=== PATIENT | female | born 1960 | race Caucasian/White ===

== ENCOUNTER 2020-11-06 12:42 | Outpatient (CLI) | payer OTHER, SELFPAY ==
--- NOTE | ~2020-11-06 | US_ITS ---
EXAMINATION: US venous doppler LE EXAM DATE: 11/06/2020 13:46 INDICATION: R60.9 - Edema, unspecified EDEMA. TECHNIQUE: Multiple grayscale, color flow and Doppler images of the lower extremity deep venous syste ms bilaterally were obtained and reviewed. There is no prior study for comparison. FINDINGS: RIGHT SIDE Common femoral: -------- Normal. Profunda femoral: ------- Normal. Femoral: Normal. Popliteal: Normal. Posterior tibial: --------- Normal. Peroneal: Normal. Gastrocnemius: Thrombosed. Soleus: Not visualized. Greater saphenous: ----- Normal. Lesser saphenous: ------ Not visualized. LEFT SIDE Common femoral: -------- Normal. Profunda femoral: ------- Normal. Femoral: Normal. Popliteal: Normal. Posterior tibial: --------- Normal. Peroneal: Normal. Gastrocnemius: Not visualized. Soleus: Not visualized. Greater saphenous: ----- Normal. Lesser saphenous: ------ Not visualized. IMPRESSION: 1. Positive for right calf DVT. 2. No left DVT. STAT hold and call. I confirmed with Norah that patient is in waiting room. She is notifying [facility] doctor of results and patient will be given instructions at that time. Reviewed, dictated and finalized at location B. IMPRESSION: 1. Positive for right calf DVT. 2. No left DVT. STAT hold and call. I confirmed with Norah that patient is in waiting room. S he is notifying ordering doctor of results and patient will be given instructio ns at that time.
[2020-11-06 13:09] LABS: Immature Platelet Fraction Pct 6.3 % (0.9-11.2); Mean Corpuscular HGB Conc 24.8 g/dl (32-36); Mean Corpuscular Hemoglobin 15.4 pg (26-34); Mean Corpuscular Volume 62.2 fl (80-100); Mean Platelet Volume 10.8 fl (7.4-10.4); Platelet Count Result 400 k/mm3 (150-375); Red Blood Count 3.31 M/mm3 (4.2-5.4); White Blood Count 8.5 K/mm3 (4.5-10.0)
[2020-11-06 13:16] LABS: Hematocrit 20.6 % (37.0-47.0)
[2020-11-06 13:18] LABS: Alanine Aminotransferase 11 U/L (4-35); Albumin Level 3.8 g/dL (3.5-5.1); Alkaline Phosphatase 55 U/L (38-126); Anion Gap 9 mmol/L (8-16); Aspartate Amino Transferase 31 U/L (14-36); Bilirubin,Total 1.2 mg/dL (0.2-1.3); Blood Urea Nitrogen 15 mg/dL (7-17); Calcium 8.8 mg/dL (8.4-10.2); Carbon Dioxide 26 mmol/L (22-30); Chloride 103 mmol/L (98-107); Cholesterol 120 mg/dL (0-200); Estimated Glomerular Filt Rate > 60; Glucose 119 mg/dL (65-105); HDL Direct 33 mg/dL; Potassium 3.8 mmol/L (3.4-5.0); Sodium 138 mmol/L (137-145); Triglycerides 93 mg/dL (<150)
[2020-11-06 13:25] LABS: Hemoglobin 5.1 g/dL (12.0-15.0)
[2020-11-06 13:36] LABS: LDL Cholesterol Direct 59 mg/dL
[2020-11-06 14:00] LABS: Iron 17 ug/dL (37-170)
[2020-11-06 14:09] LABS: Percent Iron Saturation 4 % (20-50)
[2020-11-06 14:18] LABS: Free T4 Free Thyroxine 1.04 ng/mL (0.78-2.19)
== END 2020-11-06 12:43 | disposition home or self-care (01) ==
PROVIDERS: PCP Family Medicine; Visit Provider Physician Assistant
DX: D64.9 Anemia, unspecified (principal); R53.83 Other fatigue; E78.5 Hyperlipidemia, unspecified; M79.662 Pain in left lower leg; R60.9 Edema, unspecified; I82.4Z1 Acute embolism and thrombosis of unspecified deep veins of right distal lower extremity
CPT/HCPCS: 36415; 80053; 80061; 83540; 83550; 84439; 84443; 85027; 85055; 93970

== ENCOUNTER 2020-11-06 14:17 | Inpatient (IN) | payer OTHER, SELFPAY ==
[2020-11-06] VITALS (33 sets, daily range): BP systolic 109–137; BP diastolic 51–95; PULSE 75–98; RESP 14–24; TEMP 36.4–37.4; O2SAT 94–100; BMI 30.4
--- NOTE | 2020-11-06 14:49 | ECG_ITS ---
Measurements Intervals [place] Rate: 81 P: 30 MO: 143 QRS: 0 QRSD: 86 T: -3 QT: 362 QTc: 422 Interpretive Statements SINUS RHYTHM DELAYED PRECORDIAL R/S TRANSITION LOW QRS VOLTAGE IN PRECORDIAL LEADS BORDERLINE T WAVE ABNORMALITY- INFERIOR LEADS BORDERLINE ECG Electronically Signed On 11-06-2020 17:16:53 CDT by Sandeep Méndez D.O.
[2020-11-06 14:55] LABS: Basophils Percent Auto 0.3 % (0.2-1.2); Eosinophils Absolute Auto 0.3 K/mm3 (0-0.3); Eosinophils Percent Auto 3.4 % (0-4.4); Immature Granulocyte Absolute 0.04 K/mm3 (0.00-0.031); Immature Granulocyte Percent A 0.5 % (0-0.5); Lymphocytes Percent Auto 27.7 % (18.3-44.2); Mean Corpuscular HGB Conc 25.3 g/dl (32-36); Mean Corpuscular Hemoglobin 15.6 pg (26-34); Mean Corpuscular Volume 61.9 fl (80-100); Monocytes Absolute Auto 0.5 K/mm3 (0.1-0.6); Monocytes Percent Auto 6.7 % (2.6-8.5); Neutrophils Absolute Auto 4.9 K/mm3 (1.3-6.7); Neutrophils Percent Auto 61.4 % (45.5-73.1); Nucleated Red Blood Cells Absolute Auto 0.1 K/mm3 (0.0-0.012); Platelet Count Result 368 k/mm3 (150-375); Red Cell Distribution Width 20.9 % (11.5-14.5); White Blood Count 7.9 K/mm3 (4.5-10.0)
[2020-11-06 15:03] LABS: Prothrombin Time 13.3 Seconds (11.1-14.7)
[2020-11-06 15:04] LABS: Partial Thromboplastin Time 22.3 SECONDS (22.3-36.8)
[2020-11-06 15:07] LABS: Alanine Aminotransferase 10 U/L (4-35); Albumin Level 3.8 g/dL (3.5-5.1); Alkaline Phosphatase 54 U/L (38-126); Anion Gap 8 mmol/L (8-16); Aspartate Amino Transferase 27 U/L (14-36); Bilirubin,Total 1.3 mg/dL (0.2-1.3); Blood Urea Nitrogen 14 mg/dL (7-17); Calcium 8.8 mg/dL (8.4-10.2); Carbon Dioxide 27 mmol/L (22-30); Chloride 102 mmol/L (98-107); Estimated Glomerular Filt Rate > 60; Glucose 94 mg/dL (65-105); Potassium 3.9 mmol/L (3.4-5.0); Sodium 137 mmol/L (137-145)
[2020-11-06 15:20] LABS: Hematocrit 19.8 % (37.0-47.0)
[2020-11-06 15:22] LABS: Hypochromasia 2+ (NORMAL); Platelet Estimate Adequate (Adequate)
[2020-11-06 15:23] LABS: Anisocytosis 3+ (NORMAL)
--- NOTE | 2020-11-06 15:38 | ED.GENADULT ---
HPI - General Adult General Chief complaint: Extremity Problem,Nontraumatic Stated complaint: + Dvt R leg-sent from radiology Time Seen by Provider: 11/06/20 15:20 Source: patient History of Present Illness HPI narrative: Patient is a 60 y/o male complaining of severe weakness and SOB for last 2 months. There is no known alleviating or exacerbating factor. She had one episode of blood in stool 1 week ago and she attributed this to hemorrhoid. She had outpatient lab done today and her Hemoglobin was 5.1. She was thus directed to ED. She also has been having bilateral leg pain for 2 weeks. Outpatient US showed right leg DVT. Related Data Home Medications Medication Instructions Recorded Confirmed No Home Medications 11/06/20 11/06/20 Allergies Allergy/AdvReac Type Severity Reaction Status Date / Time No Known Allergies Allergy Unknown Verified 11/06/20 15:23 Review of Systems Review of Systems: All systems reviewed & are unremarkable except as noted in HPI and below Constitutional: Constitutional: Denies chills, Denies fever(s), Denies headache(s) and Denies weakness Eyes: Eyes: Denies blurry vision ENT: Denies headache(s) and Denies neck pain Cardiovascular: Cardiovascular: Denies chest pain and Denies dyspnea Respiratory: Respiratory: Denies cough and Denies dyspnea Gastrointestinal: Gastrointestinal: Denies abdominal pain, Denies diarrhea, Denies nausea and Denies vomiting Genitourinary: Genitourinary: Denies hematuria and Denies dysuria Musculoskeletal: Musculoskeletal: Denies back pain and Denies neck pain Neurologic: Denies headache(s) and Denies weakness [facility] Past Medical History Medical History Abnormal colonoscopy 2019- Polyp f/u 3-5 years Anemia Gastric ulcer, acute with hemorrhage Vitamin B12 deficiency Surgical History Surgical History H/O total hysterectomy History of 3 sections History of esophagogastroduodenoscopy (EGD) 2019-esophagitis Family History Family History (Updated 11/06/20 @ 12:12 by Chasity Escobar CMA) Father Family history of glaucoma, Onset Age: 0 Gout Mother Family history of cardiovascular disease Gout Social History Social History Smoking status: Never smoker Second hand tobacco smoke exposure: No Alcohol intake: never Course Consultations Consultation #1: Discussed with SERGEI Bal, who agrees to admit. Date: 11/06/20 Time: 15:45 Consultation #2: Discussed with Dr. Luke, who agrees to admit. Date: 11/06/20 Time: 16:06 Consultation #3: Discussed with Dr. Castillo, who agrees to consult. Date: 11/06/20 Time: 16:22 Vital Signs Vital signs: Vital Signs Temperature 36.7 C 11/06/20 14:39 Pulse Rate 83 11/06/20 14:39 Respiratory Rate 18 11/06/20 14:39 Blood Pressure 134/75 11/06/20 14:39 Pulse Oximetry 100 11/06/20 14:39 Temperature 37.1 C 11/06/20 18:22 Pulse Rate 81 11/06/20 18:22 Respiratory Rate 18 11/06/20 18:22 Blood Pressure 137/81 11/06/20 18:22 Pulse Oximetry 99 11/06/20 18:22 Medical Decision Making Vital Signs Vital Signs: Vital Signs Temperature 36.7 C 11/06/20 14:39 Pulse Rate 83 11/06/20 14:39 Respiratory Rate 18 11/06/20 14:39 Blood Pressure 134/75 11/06/20 14:39 Pulse Oximetry 100 11/06/20 14:39 Temperature 37.1 C 11/06/20 18:22 Pulse Rate 81 11/06/20 18:22 Respiratory Rate 18 11/06/20 18:22 Blood Pressure 137/81 11/06/20 18:22 Pulse Oximetry 99 11/06/20 18:22 Lab Data Result diagrams: 11/06/20 14:48 11/06/20 14:48 Labs: Lab Results 11/06/20 11/06/20 11/06/20 Range/Units 14:48 14:48 14:48 WBC 7.9 (4.5-10.0) K/mm3 RBC 3.20 L (4.2-5.4) M/mm3 Hgb 5.0 L* (12.0-15.0) g/dL Hct 19.8 L* (37.0-47.0) %
[2020-11-06] MEDS: TUBING, BLOOD PLUM PUMP TUBING 1 EACH XX (16:21)
[2020-11-06] MEDS: SODIUM CHLORIDE 0.9% IV 250 ML 30 ML IV CONT (16:21)
--- NOTE | 2020-11-06 19:00 | ADMGEN ---
This patient, Jazmín Osorio, was admitted to Medical Room 341-01. Patient/family oriented to hospital policies and general routines including ID bracelet, bed and alarms, visiting hours, pain management, procedures, bathroom and other care routines, personal items, smoking policy, room service/diet, and visiting hours. Information on how to activate the Rapid Response Team has been discussed. Patient/Family are encouraged to report perceived risks to care and to ask questions if they do not understand what they are told or what they should do.
[2020-11-06] MEDS: SODIUM CHLORIDE 0.9% IV 250 ML 30 ML (19:49)
--- NOTE | 2020-11-06 23:51 | PM.IMHP ---
H&P: HPI History of Present Illness Date/Time: 11/06/20 23:51 This is a 60-year-old female patient who has been complaining of some generalized weakness and shortness of breath for 2 months. She has been seeing her primary care doctor Dr. peacock. Dr. peacock sent the patient over to have some blood work and have a venous Doppler. The patient has been complaining of having some pain to her right lower extremity. The patient stated that she had blood in her stool approximately 1 week ago. However the patient thought that maybe which has from her small hemorrhoid. The patient stated that she has had anemia all her life and that in 2019 she had received a blood transfusion at that time and she saw Dr. Woodall. She had an EGD were they found a peptic ulcer and she is also found to have some colon polyps as per the patient statementin 2019 The patient had an outpatient ultrasound of the right leg and was found to be positive for a DVT to the right leg. Hemoglobin was noted to be 5.1. And 2 units packed red blood cells was ordered for the patient. Dr. irving had been consulted for possible IVC filter placement since the patient is anemic and requiring a blood transfusion. the patient is not pale she has a normal color. The patient does not feel any dizziness or lightheadedness. The patient states that she does take an iron tablet as well as a multivitamin every day. She stated 2019 she had anemia workup at that time and was prescribed B12 and iron at that time. Her H&H was noted to be 5.0 And19.8 today. the patient is being admitted to observation status on the date of service of 11/06/2020. Chief Complaint: Anemia Review of Systems Review of Systems: All systems reviewed & are unremarkable except as noted in HPI and below Constitutional: Constitutional: Reports as per HPI and Reports no additional constitutional complaints Eyes: Eyes: Reports as per HPI and Reports no additional eye complaints ENT: Reports system reviewed and no additional complaints, except as documented and Reports Normal hearing present Cardiovascular: Cardiovascular: Reports no additional cardiovascular complaints Respiratory: Respiratory: Reports no additional respiratory complaints and Reports no additional respiratory complaints Gastrointestinal: Gastrointestinal: Reports as per HPI and Reports no additional gastrointestinal complaints Musculoskeletal: Musculoskeletal: Reports no additional musculoskeletal complaints Integumentary/Breasts: Skin/Breast: Reports system reviewed and no additional complaints, except as docu and Reports as per HPI Neurologic: Reports system reviewed and no additional complaints, except as documented, Reports as per HPI and Reports Normal hearing present Psychiatric: Psychiatric: Reports no additional psychiatric complaints and Reports as per HPI Endocrine: Endocrine: Reports no additional endocrine complaints Hematologic/Lymphatic: Hematologic/Lymphatic: Reports no additional hematologic/lymphatic complaints Allergic/Immunologic: Allergic/Immunologic: Reports no additional allergic/immunologic complaints PMFSH Past Medical History Medical History Abnormal colonoscopy 2019- Polyp f/u 3-5 years Anemia Gastric ulcer, acute with hemorrhage Vitamin B12 deficiency Surgical History Surgical History H/O total hysterectomy History of 3 sections History of esophagogastroduodenoscopy (EGD) 2019-esophagitis Family History Family History Father Family history of glaucoma, Onset Age: 0 Gout Mother Family history of cardiovascular disease Gout Social History Social History (Updated 11/06/20 @ 23:57 by Mally Quesada NP) Social History: The patient is lives with her . 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 She desires to
[2020-11-07] VITALS (11 sets, daily range): BP systolic 114–148; BP diastolic 55–76; PULSE 69–80; RESP 16–18; TEMP 36.1–36.4; O2SAT 95–100
[2020-11-07 01:12] LABS: Hematocrit 24.8 % (37.0-47.0)
[2020-11-07 01:22] LABS: Hemoglobin 6.8 g/dL (12.0-15.0)
[2020-11-07] MEDS: SODIUM CHLORIDE 0.9% IV 250 ML 30 ML IV CONT (02:15)
[2020-11-07 06:22] LABS: Basophils Percent Auto 0.4 % (0.2-1.2); Eosinophils Absolute Auto 0.3 K/mm3 (0-0.3); Eosinophils Percent Auto 4.6 % (0-4.4); Hematocrit 26.8 % (37.0-47.0); Hemoglobin 7.7 g/dL (12.0-15.0); Immature Granulocyte Absolute 0.04 K/mm3 (0.00-0.031); Immature Granulocyte Percent A 0.6 % (0-0.5); Immature Platelet Fraction Pct 5.5 % (0.9-11.2); Lymphocytes Absolute Auto 2.15 K/mm3 (0.9-3.2); Lymphocytes Percent Auto 31.6 % (18.3-44.2); Mean Corpuscular HGB Conc 28.7 g/dl (32-36); Mean Corpuscular Hemoglobin 20.2 pg (26-34); Mean Corpuscular Volume 70.3 fl (80-100); Mean Platelet Volume 10.9 fl (7.4-10.4); Monocytes Absolute Auto 0.5 K/mm3 (0.1-0.6); Monocytes Percent Auto 6.8 % (2.6-8.5); Neutrophils Absolute Auto 3.8 K/mm3 (1.3-6.7); Nucleated Red Blood Cells Absolute Auto 0.1 K/mm3 (0.0-0.012); Nucleated Red Blood Cells Perc 1.3 % (0.0-0.2); Platelet Count Result 293 k/mm3 (150-375); Red Blood Count 3.81 M/mm3 (4.2-5.4); Red Cell Distribution Width 26.9 % (11.5-14.5); White Blood Count 6.8 K/mm3 (4.5-10.0)
[2020-11-07 06:59] LABS: Anisocytosis 1+ (NORMAL); Hypochromasia 2+ (NORMAL); Platelet Estimate Adequate (Adequate); Polychromasia 1+ (NORMAL)
--- NOTE | 2020-11-07 07:20 | WPDGICN ---
Assessment and Plan Assessment and plan (1) Acute blood loss anemia: Code(s): D62 - Acute posthemorrhagic anemia Status: Acute Assessment and Plan: I am concerned that she may have a persistent a recurrence of gastric ulcer. He the microcytic indices also him towards the possibility of slow blood loss such as with gastrointestinal neoplasm, but she had a colonoscopy 2 years ago that was normal except for 1 polyp. I will prep her for EGD and colonoscopy to be done tomorrow morning. She recalls being unable to drink the prep and believes that it was instilled through an NG to last time. (2) Acute deep vein thrombosis (DVT) of right lower extremity: Qualifiers: Affected thrombotic vein of extremity: calf muscle vein Qualified Code(s): I82.461 - Acute embolism and thrombosis of right calf muscular vein Code(s): I82.401 - Acute embolism and thrombosis of unspecified deep veins of right lower extremity Status: Acute Assessment and Plan: Once endoscopy is done she can be anticoagulated, unless alternatively IVC filter is placed GI Consult Note Consult date/time: 11/07/20 07:20 HPI: Jazmín Osorio is a 60 year old female who was sent to the lab for blood work yesterday and found to have a hemoglobin of 5.1. She therefore was sent to the emergency room and subsequently admitted. The patient denies having black tarry stools lately she has had no change in bowel habits but she did see some red blood after bowel movement a week ago. She had a history of a gastric ulcer in proximal stomach 2 years ago at that time. She apparently also was positive for H pylori at that time and it was treated. A colonoscopy At that timerevealed 1 large polyp that was removed. she denies heartburn dysphagia anorexia nausea vomiting or weight loss. She denies any significant abdominal pain. He is on no medications at home Review of Systems Review of Systems: All systems reviewed & are unremarkable except as noted in HPI and below PMFSH Past Medical History Medical History Abnormal colonoscopy 2019- Polyp f/u 3-5 years Anemia Gastric ulcer, acute with hemorrhage Vitamin B12 deficiency Surgical History Surgical History H/O total hysterectomy History of 3 sections History of esophagogastroduodenoscopy (EGD) 2019-esophagitis Family History Family History Father Family history of glaucoma, Onset Age: 0 Gout Mother Family history of cardiovascular disease Gout Social History Social History Social History: The patient is lives with her . 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 She desires to be a full code. She is a lifelong nonsmoker. She does not use any alcohol marijuana or illicit drugs. Smoking status: Never smoker Second hand tobacco smoke exposure: No Alcohol intake: never Substance use: never Spiritual care concerns: No Meds Home Medications and Allergies Home Medications Medication Instructions Recorded Confirmed Type No Home Medications 11/06/20 11/06/20 History Allergies Allergy/AdvReac Type Severity Reaction Status Date / Time No Known Allergies Allergy Unknown Verified 11/06/20 19:37 Vital Signs Vital Signs - 24 hr 11/06/20 14:39 11/06/20 15:30 11/06/20 15:45 Temperature 36.7 C Pulse Rate 83 78 80 Respiratory Rate 18 20 14 Blood Pressure 134/75 122/88 Pulse Oximetry 100 97 94 11/06/20 15:46 11/06/20 16:09 11/06/20 16:15 Temperature 36.9 C Pulse Rate 78 86 90 Respiratory Rate 16 19 18 Blood Pressure 121/76 Pulse Oximetry 98 98 99 11/06/20 16:28 11/06/20 16:30 11/06/20 16:31 Temperat
--- NOTE | 2020-11-07 08:59 | PM.CNGS ---
Assessment and Plan Assessment and plan (1) Acute deep vein thrombosis (DVT) of right lower extremity: Qualifiers: Affected thrombotic vein of extremity: calf muscle vein Qualified Code(s): I82.461 - Acute embolism and thrombosis of right calf muscular vein Code(s): I82.401 - Acute embolism and thrombosis of unspecified deep veins of right lower extremity Status: Acute Assessment and Plan: We have been asked to see the patient in regards to placing an IVC filter. She was found to have an acute DVT in the right gastrocnemius vein in the setting of profound anemia with suspected GI bleed. GI suggests that she could be anticoagulated following her EGD/colonoscopy tomorrow, unless an IVC filter is placed. With this being a distal DVT, this could be treated with anticoagulation or the option of close monitoring and follow-up. I discussed treatment options with the patient regarding anticoagulating her after her endoscopies versus proceeding with an IVC filter or monitoring knowing the risks of propagation. She would like to hold off on the IVC filter for now. We will await findings from the EGD/Colonoscopy and recommendations on treatment. With her profound anemia, she may be a high risk for anticoagulation depending on what is found by GI tomorrow. We will follow along and can discuss her options again following the EGD/Colonoscopy. (2) Acute blood loss anemia: Code(s): D62 - Acute posthemorrhagic anemia Status: Acute Additional Plan I have discussed the patient's case and plan of care with Dr. Reaves. I have also called and discussed the case with the Hospitalist. They feel that she will likely need to be treated with anticoagulation, but feel that monitoring is an option if she will be compliant with follow-up. Thank you for allowing us to see the patient in consultation. History of Present Illness Consult details Consult date: 11/07/20 Reason for consult: other (IVC filter placement) Requesting physician: Myriam Greenfield MD Narrative: This is a 60-year-old female with a history of profound anemia with previous gastric ulcer and H pylori infection in February of 2019. She presented to her PCP yesterday with complaints of her right lower leg pain and swelling for 1 week, along with progressively worsening fatigue over the last month. She was sent for a bilateral lower extremity venous Doppler, which showed a DVT in the right gastrocnemius vein. Her lab work also showed profound anemia with a hemoglobin of 5.1. She was directed to the ED for evaluation. She has been admitted to the hospitalist service and has received 3 units of packed red blood cell transfusions. Her hemoglobin is up to 7.7 today. GI has been consulted and is planning to proceed with an EGD and colonoscopy tomorrow. She is currently on clear liquids today. Our service has been consulted to evaluate the patient for placement of an IVC filter. The patient is now seen on the medical floor. Review of Systems Review of Systems: All systems reviewed & are unremarkable except as noted in HPI and below Constitutional: Constitutional: Reports as per HPI, Reports fatigue, Denies fever(s) and Denies weakness Cardiovascular: Cardiovascular: Reports no additional cardiovascular complaints and Denies chest pain Respiratory: Respiratory: Reports no additional respiratory complaints, Denies dyspnea and Denies dyspnea on exertion Gastrointestinal: Gastrointestinal: Denies abdominal pain, Denies melena, Reports hematochezia (once about one week ago), Denies change in bowel habits, Denies diarrhea and Denies vomiting PMFSH Past Medical History Medical History Anemia Gastric ulcer, acute with hemorrhage 2019 with positive Nasrin-test for H.pylori Vitamin B12 deficiency Surgical History Surgical History H/O total hysterectomy Histo
[2020-11-07] MEDS: PANTOPRAZOLE SODIUM IV 40 MG VIAL IV PUSH ×2 (09:31→20:01)
[2020-11-07 12:00] LABS: Hematocrit 29.3 % (37.0-47.0); Hemoglobin 8.3 g/dL (12.0-15.0)
[2020-11-07 13:17] LABS: Folic Acid 12.7 ng/mL (2.76->20)
[2020-11-07] MEDS: BISACODYL 5 MG TABLET EC 10 MG PO (13:42)
[2020-11-07 14:12] LABS: Ferritin 5.25 ng/mL (11.1-264)
--- NOTE | 2020-11-07 14:16 | PM.IMPN ---
Progress Note: A&P Assessment and Plan (1) Acute blood loss anemia: Code(s): D62 - Acute posthemorrhagic anemia Status: Acute Assessment and Plan: Pt hgb was 5.1 on admission and is now up to 8.3 -She has received 3u of PRBC -Plan for EGD/colonoscopy tomorrow AM to assess for etiology -Pt has had this in the past with negative work up at the time. Dr. Shannon consulted -Anemia labs not drawn before the blood. B12 mildly low, will replace. Ferritin also low which points to iron deficiency anemia. Will give a dose of venofer tomorrow (she had blood yesterday and today) -No signs of hemolytic anemia -Monitor H&H (2) GI (gastrointestinal hemorrhage): Qualifiers: GI bleed type/associated pathology: unspecified gastrointestinal hemorrhage type Qualified Code(s): K92.2 - Gastrointestinal hemorrhage, unspecified Code(s): K92.2 - Gastrointestinal hemorrhage, unspecified Status: Acute Assessment and Plan: Patient stated that she noticed bright red bleeding about 1 week ago -Plan for colonoscopy and EGD tomorrow. Consider capsule study if this does not find an etiology -She did see Dr. Woodall in 2019 and received an EGD as well as colonoscopy. She stated that she had some polyps removed at that time and was found have peptic ulcer disease. -Continue protonix (3) Acute deep vein thrombosis (DVT) of right lower extremity: Qualifiers: Affected thrombotic vein of extremity: calf muscle vein Qualified Code(s): I82.461 - Acute embolism and thrombosis of right calf muscular vein Code(s): I82.401 - Acute embolism and thrombosis of unspecified deep veins of right lower extremity Status: Acute Assessment and Plan: DVT in the gastrocnemius vein - hemoglobin has been low, it is risky to start anticoagulation at this time. Await for EGD in colonoscopy results tomorrow - surgery was consulted for an IVC filter but patient has declined - may consider serial ultrasounds if absolutely necessary (below the knee DVT) - she has no family history of clotting disease. she has recently retired and is not as active - no PE suspected at this time as her shortness of breath has resolved with her blood transfusions Time Spent With Patient Time with patient: 25 - 35 minutes Subjective Date/time seen: 11/07/20 14:16 Interval history: Pt is a 60 y/o female here for anemia as well as DVT. Patient was seen today and is doing okay. She said her right leg is much less swollen than it has been in the past. She has no pain currently. She said her shortness of breath has completely resolved since receiving the blood transfusion. Pt denies nausea, vomiting, fevers, chills, constipation, diarrhea, chest pain, sob, or abdominal pain. Review of Systems Review of Systems: All systems reviewed & are unremarkable except as noted in HPI and below Exam Narrative: Exam Narrative: General: Well developed well nourished patient in NAD HEENT: normocephalic Neck: supple Neuro: Alert and oriented x4 CV:RRR Resp:CTA Abd: Soft, non distended. No pain to palpation. Positive bowel sounds Extremities: Right ankle appears chronically more swollen than the left (previous break) but no erythema or pain. Left leg without swelling or pain Objective Data Vital Signs Vital Signs: Vital Signs - 24 hr 11/06/20 14:39 11/06/20 15:30 11/06/20 15:45 Temperature 98.1 F Pulse Rate 83 78 80 Respiratory Rate 18 20 14 Blood Pressure 134/75 122/88 Pulse Oximetry 100 97 94 11/06/20 15:46 11/06/20 16:09 11/06/20 16:15 Temperature 98.4 F Pulse Rate 78 86 90 Respiratory Rate 16 19 18 Blood Pressure 121/76 Pulse Oximetry 98 98 99 11/06/20 16:28 11/06/20 16:30 11/06/20 16:31 Temperature Pulse Rate 92 87 87 Respiratory Rate 17 17 14 Blood Pressure 125/64 Pulse Oximetry 99 97 11/06/20 16:33 11/06/20 16:35 11/06/20 16:45 Temperature 98.4 F Pulse Rate 88
[2020-11-07] MEDS: CYANOCOBALAMIN INJ 1,000 MCG/ML VIAL 1000 MCG IM (15:53)
[2020-11-07] MEDS: PEG (High)/E-LYTE SOLN 4,000 ML BTL 4000 ML PO (15:56)
--- NOTE | 2020-11-07 18:42 | PDONCCN ---
HPI - Date of Consult Date/Time: 11/07/20 18:42 Requesting Physician: Jessica Wise PA-C Primary Care Provider: Lashonda Austin MD - Consult Narrative Reason for consult: Microcytic anemia Narrative: Jazmín Osorio is a 60 year old female This is a pleasant 60-year-old female with history of anemia for most of her adult life. She was admitted to the hospital in February 2019 for significant anemia and had colonoscopy done that showed internal hemorrhoids and polyps. EGD showed peptic ulcer disease. She now came into the hospital with generalized weakness along with some shortness of breath and dyspnea on exertion. She was complaining of lower abdominal pain and the right lower extremity swelling at the ankle site for last 3 days duration. She denies any injury and trauma to the right leg. She has been reasonably active at home. She denies any melena hematochezia. She denies being a vegetarian. She denies any previous history of his gastric surgery. Patient had Doppler study done that showed DVT involving the right leg. Labs showed hemoglobin of 5.1. She received 3 units of packed red blood cell. She is feeling better after the blood transfusion. She is planning to have EGD and colonoscopy in the morning. She denies any history of malignancy in the past. She had last mammogram 4 years ago. Review of Systems - Review of Systems All systems reviewed & are unremarkable except as noted in HPI and bel - Neurologic Reports system reviewed and no additional complaints, except as documented, Reports hearing normal, Denies headache(s), Denies weakness [facility] Medical History: Medical History (Last Reviewed 11/07/20 @ 09:31 by JULIO CESAR Cárdenas) Anemia Gastric ulcer, acute with hemorrhage 2019 with positive Nasrin-test for H.pylori Vitamin B12 deficiency Surgical History: Surgical History (Last Reviewed 11/07/20 @ 09:31 by JULIO CESAR Cárdenas) H/O total hysterectomy History of 3 sections History of colonoscopy with polypectomy 2019 History of esophagogastroduodenoscopy (EGD) 2019-esophagitis, gastric ulcer, positive Nasrin-test for H.pylori Family History: Family History (Last Reviewed 11/07/20 @ 09:31 by JULIO CESAR Cárdenas) Father Family history of glaucoma, Onset Age: 0 Gout Mother Family history of cardiovascular disease Gout - Social History Social History: Social History (Last Reviewed 11/07/20 @ 09:06 by JULIO CESAR Cárdenas) Alcohol Use: Alcohol intake: never Substance Use: Substance use: never Others: Spiritual care concerns: No Smoking Status: Smoking status: Never smoker Second hand tobacco smoke exposure: No Meds Home Medications Medication Instructions Recorded Confirmed Type No Home Medications 11/06/20 11/06/20 History Allergies Allergy/AdvReac Type Severity Reaction Status Date / Time No Known Allergies Allergy Unknown Verified 11/06/20 19:37 Results - Labs CBC & Chem 7: 11/07/20 11:43 11/06/20 14:48 Labs: Short CBC 11/07/20 11/07/20 11/07/20 Range/Units 00:16 06:01 11:43 WBC 6.8 (4.5-10.0) K/mm3 Hgb 6.8 L* 7.7 L 8.3 L (12.0-15.0) g/dL Hct 24.8 L 26.8 L 29.3 L (37.0-47.0) % Plt Count 293 (150-375) k/mm3 Assessment and Plan - Additional Plan Microcytic anemia. Patient is a pleasant 70-year-old female who has anemia for all of her life. She was admitted to hospital in February 2019 with similar presentation when she was quite tired and fatigue and blood workup at that time showed significant anemia. Patient had EGD and colonoscopy done previously. Now she came back to the hospital with increasing tiredness and fatigue. She denies any melena hematochezia. She had 1 episode of hemorrhoidal bleeding that now resolved. She denies being a vegetarian. She denies any previous history of stomach surgery. Labs showed significant iron deficien
[2020-11-08] VITALS (7 sets, daily range): BP systolic 98–135; BP diastolic 55–88; PULSE 65–84; RESP 16–23; TEMP 35.9–37.3; O2SAT 95–100
[2020-11-08 06:37] LABS: Hematocrit 29.4 % (37.0-47.0); Hemoglobin 8.3 g/dL (12.0-15.0)
[2020-11-08 06:51] LABS: Anion Gap 7 mmol/L (8-16); Blood Urea Nitrogen 9 mg/dL (7-17); Calcium 8.4 mg/dL (8.4-10.2); Carbon Dioxide 27 mmol/L (22-30); Chloride 105 mmol/L (98-107); Estimated CRCL calculation 86 ml/min; Estimated Glomerular Filt Rate > 60; Glucose 96 mg/dL (65-105); Potassium 3.9 mmol/L (3.4-5.0); Sodium 139 mmol/L (137-145)
[2020-11-08] MEDS: PANTOPRAZOLE SODIUM IV 40 MG VIAL IV PUSH ×2 (08:33→20:03)
[2020-11-08] MEDS: LACTATED RINGERS 1,000 ML 150 ML IV CONT (10:54)
--- NOTE | 2020-11-08 11:31 | WPDANESEPPF ---
Anes - Initial Pre Proc Eval Procedure: Operation Date: 11/08/20 12:00 Proposed Procedures p Esophagogastroduodenoscopy & Colonoscopy - Alex Castillo MD Date/Time: 11/08/20 11:31 Surgeon: Jessica Wise PA-C Pre Op Diagnosis: gi bleed/anemia/dvt Patient Data Age: 60 Gender: F Height: 1.7 m Weight: 88 kg Last Vital Signs Temp 36.9 C 11/08/20 11:00 Pulse 72 11/08/20 11:00 Resp 18 11/08/20 11:00 BP 125/68 11/08/20 11:00 Pulse Ox 96 11/08/20 11:00 Allergies Allergy/AdvReac Type Severity Reaction Status Date / Time No Known Allergies Allergy Unknown Verified 11/08/20 10:59 Home Medications Medication Instructions Recorded Confirmed Type No Home Medications 11/06/20 11/06/20 History Laboratory Tests 11/07/20 11/07/20 11/07/20 11:43 11:43 11:43 Hgb 8.3 g/dL L g/dL (12.0-15.0) Hct 29.3 % L % (37.0-47.0) Sodium Potassium Chloride Carbon Dioxide Anion Gap BUN Creatinine Estim Creat Clear Calc Estimated GFR Glucose Calcium Ferritin 5.25 ng/mL L ng/mL (11.1-264) Vitamin B12 315.0 pg/mL pg/mL (239-931) Folate 12.7 ng/mL ng/mL (2.76->20) 11/08/20 11/08/20 06:20 06:20 Hgb 8.3 g/dL L g/dL (12.0-15.0) Hct 29.4 % L % (37.0-47.0) Sodium 139 mmol/L mmol/L (137-145) Potassium 3.9 mmol/L mmol/L (3.4-5.0) Chloride 105 mmol/L mmol/L (98-107) Carbon Dioxide 27 mmol/L mmol/L (22-30) Anion Gap 7 mmol/L L mmol/L (8-16) BUN 9 mg/dL D mg/dL (7-17) Creatinine 0.70 mg/dL mg/dL (0.7-1.0) Estim Creat Clear Calc 86 ml/min ml/min Estimated GFR > 60 (59 - ) Glucose 96 mg/dL mg/dL (65-105) Calcium 8.4 mg/dL mg/dL (8.4-10.2) Ferritin Vitamin B12 Folate Patient hx anesthesia problems: none Family hx anesthesia problems: none PMFSH Past Medical History Medical History Anemia Gastric ulcer, acute with hemorrhage 2019 with positive Nasrin-test for H.pylori Vitamin B12 deficiency Surgical History Surgical History H/O total hysterectomy History of 3 sections History of colonoscopy with polypectomy 2019 History of esophagogastroduodenoscopy (EGD) 2019-esophagitis, gastric ulcer, positive Nasrin-test for H.pylori Family History Family History Father Family history of glaucoma, Onset Age: 0 Gout Mother Family history of cardiovascular disease Gout Social History Social History Social History: The patient is lives with her . 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 She desires to have her as a durable power state attorney for healthcare. She desires to be a full code. She is a lifelong nonsmoker. She does not use any alcohol marijuana or illicit drugs. Smoking status: Never smoker Second hand tobacco smoke exposure: No Alcohol intake: never Substance use: never Spiritual care concerns: No Anes - Eval Final PreProcedure Day of Procedure 11/08/20 11:31 Patient weight: obese Heart: regular rate and rhythm Lungs: clear to auscultation Airway: Mallampati scale class II Neurological: alert and oriented Last oral intake: >/= 8 hours ASA classification: III Emergent: no Anesthetic plan: proceed Anesthesia type and monitoring: general GIVS and standard monitoring Informed Consent: The patient's anesthetic plan and its attendant risks and benefits were discussed with the patient/family/POA. Questions were solicited and answers provided to the satisfaction of the patient/family/POA.
--- NOTE | 2020-11-08 12:59 | SUR.OPER ---
EGD START 1230, END 1234 COLONOSCOPY START 1241, END 1258
[2020-11-08] MEDS: CYANOCOBALAMIN 1,000 MCG TABLET 1000 MCG PO (14:44)
--- NOTE | 2020-11-08 15:20 | PM.IMPN ---
Progress Note: A&P Assessment and Plan (1) Acute blood loss anemia: Code(s): D62 - Acute posthemorrhagic anemia Status: Acute Assessment and Plan: Pt hgb was 5.1 on admission and is now up to 8.3 -She has received 3u of PRBC this stay -EGD/colonoscopy did not show any source of bleed. a polyp was removed - I spoke with and Dr. Shannon about plan of care. Plan to start Eliquis 2.5 b.i.d. tomorrow as all consult agree on that treatment plan. -Pt has had this in the past with negative work up at the time. she is going to follow up with Dr. Shannon - she is low in vitamin B12 and iron which were both replaced. She has received Venofer. if these do not improve, she may need a bone marrow biopsy in the future. - if she continues to be anemic, may consider capsule study outpatient -No signs of hemolytic anemia -Monitor H&H (2) GI (gastrointestinal hemorrhage): Qualifiers: GI bleed type/associated pathology: unspecified gastrointestinal hemorrhage type Qualified Code(s): K92.2 - Gastrointestinal hemorrhage, unspecified Code(s): K92.2 - Gastrointestinal hemorrhage, unspecified Status: Acute Assessment and Plan: Patient stated that she noticed bright red bleeding about 1 week ago likely due to hemorrhoids (3) Acute deep vein thrombosis (DVT) of right lower extremity: Qualifiers: Affected thrombotic vein of extremity: calf muscle vein Qualified Code(s): I82.461 - Acute embolism and thrombosis of right calf muscular vein Code(s): I82.401 - Acute embolism and thrombosis of unspecified deep veins of right lower extremity Status: Acute Assessment and Plan: DVT in the gastrocnemius vein - as stated above, plan is to start Eliquis 2.5 mg b.i.d tomorrow per Dr. Shannon. Dr. lopez okay with this - surgery was consulted for an IVC filter but patient has declined - she has no family history of clotting disease. she has recently retired and is not as active. will need screening mammogram - no PE suspected at this time as her shortness of breath has resolved with her blood transfusions Subjective Date/time seen: 11/08/20 15:20 Interval history: Pt is a 60 y/o female here for anemia as well as DVT. Patient was seen today and is doing well. She has no pain currently. She said her shortness of breath has completely resolved since receiving the blood transfusion. Pt denies nausea, vomiting, fevers, chills, constipation, diarrhea, chest pain, sob, or abdominal pain. We discussed plan of care. Exam Narrative: Exam Narrative: General: Well developed well nourished patient in NAD HEENT: normocephalic Neck: supple Neuro: Alert and oriented x4 CV:RRR Resp:CTA Abd: Soft, non distended. No pain to palpation. Positive bowel sounds Extremities: Right ankle appears chronically more swollen than the left (previous break) but no erythema or pain. Left leg without swelling or pain Objective Data Vital Signs Vital Signs: Vital Signs - 24 hr 11/07/20 16:00 11/07/20 20:00 11/08/20 05:41 Temperature 97.6 F 97.3 F L 96.7 F L Pulse Rate 80 74 65 Respiratory Rate 18 16 16 Blood Pressure 148/76 H 139/76 121/65 Pulse Oximetry 100 100 98 11/08/20 11:00 11/08/20 13:02 11/08/20 13:12 Temperature 98.4 F Pulse Rate 72 72 76 Respiratory Rate 18 16 23 H Blood Pressure 125/68 98/61 L 113/61 Pulse Oximetry 96 99 100 11/08/20 13:22 11/08/20 13:46 Temperature 96.9 F L Pulse Rate 72 66 Respiratory Rate 19 16 Blood Pressure 115/88 135/67 Pulse Oximetry 98 100 Intake/Output Intake/Output: Intake & Output 11/05/20 11/06/20 11/07/20 11/08/20 23:59 23:59 23:59 23:59 Intake Total 700 2480 215 Output Total 950 1000 Balance 700 1530 -785 Meds/Results Medications: Active Medications Generic Name Dose Route Start Last Admin Trade Name Freq PRN Reason Stop Dose Admin Bisacodyl 10 mg 11/07/20 12:00 11/08/20 14:35 B
[2020-11-08] MEDS: ACETAMINOPHEN 325 MG TABLET 650 MG PO (22:32)
[2020-11-09 05:40] LABS: Hematocrit 30.2 % (37.0-47.0); Hemoglobin 8.2 g/dL (12.0-15.0)
[2020-11-09 05:52] VITALS: BP 118/71; PULSE 65; RESP 18; TEMP 36.1; O2SAT 99
[2020-11-09] MEDS: PANTOPRAZOLE SODIUM IV 40 MG VIAL IV PUSH (08:59)
[2020-11-09] MEDS: CYANOCOBALAMIN 1,000 MCG TABLET 1000 MCG PO (08:59)
--- NOTE | 2020-11-09 10:57 | PM.DS ---
DS: Admitting Diagnosis Admitting Diagnosis Admitting Diagnosis: symptomatic anemia, DVT DS: Discharge Diagnosis Discharge Diagnosis (1) Acute blood loss anemia: Code(s): D62 - Acute posthemorrhagic anemia Status: Acute Assessment and Plan: Pt hgb was 5.1 on admission and is now up to 8.2 -She has received 3u of PRBC this stay -EGD/colonoscopy did not show any source of bleed. a polyp was removed and she had mild esophagitis - I spoke with and Dr. Shannon about plan of care. Plan to start Eliquis 2.5 b.i.d. with close follow-up -Pt has had this in the past with negative EGD. B12 and iron will be replaced and she is going to follow up with Dr. Shannon - if these do not improve, she may need a bone marrow biopsy in the future. - if she continues to be anemic, may consider capsule study outpatient -No signs of hemolytic anemia (2) GI (gastrointestinal hemorrhage): Qualifiers: GI bleed type/associated pathology: unspecified gastrointestinal hemorrhage type Qualified Code(s): K92.2 - Gastrointestinal hemorrhage, unspecified Code(s): K92.2 - Gastrointestinal hemorrhage, unspecified Status: Acute Assessment and Plan: Patient stated that she noticed bright red bleeding about 1 week ago likely due to hemorrhoids (3) Acute deep vein thrombosis (DVT) of right lower extremity: Qualifiers: Affected thrombotic vein of extremity: calf muscle vein Qualified Code(s): I82.461 - Acute embolism and thrombosis of right calf muscular vein Code(s): I82.401 - Acute embolism and thrombosis of unspecified deep veins of right lower extremity Status: Acute Assessment and Plan: DVT in the gastrocnemius vein - as stated above, plan is to start Eliquis 2.5 mg with close monitoring. Although under therapeutic dose, her risk of bleeding is high and that is what the oncologist suggested. If she continues to lose blood, may consider serial ultrasounds. - surgery was consulted for an IVC filter but patient has declined - she has no family history of clotting disease. she has recently retired and is not as active. will need screening mammogram - no PE suspected at this time as her shortness of breath has resolved with her blood transfusions (4) Esophagitis: Code(s): K20.90 - Esophagitis, unspecified without bleeding Status: Acute Assessment and Plan: Protonix ordered (5) Colon polyp: Code(s): K63.5 - Polyp of colon Status: Acute Assessment and Plan: follow-up with office for pathology results DS: Summary Hospital Course Hospital Course: patient is a 60-year-old female with a past medical history of anemia who presented emergency room on 11/06/20 for weakness, shortness of breath and leg swelling. Vitals in the ER were temperature 36.7? C, pulse 83, respiratory rate 18, blood pressure 134/75, pulse ox 100 on room air. Initial hemoglobin 5.0, hematocrit 19.8. BMP within normal limits. She received 3 units of blood and anemia labs were drawn which showed low B12 and iron. Outpatient Doppler study showed a right gastrocnemius vein DVT and patient was admitted to the hospital. surgery, GI, and Oncology all consulted on this case. The patient adamantly refused IVC filter. She underwent an EGD to evaluate her anemia which showed esophagitis and a polyp but no etiology for the bleed. She had low B12 and iron which was replaced. Oncology was brought on board and he recommended Eliquis and closely monitoring her hemoglobin since her hemoglobin has remained stable while she was here. GI is on board with this. The day of discharge the patient had no symptoms of shortness of breath, dyspnea on exertion, or any further worsening leg swelling. She agreed with the plan and is going to follow up with Dr. Shannon. I Spoke with Dr. Shannon who recommends a lower dose Eliquis (2.5mg) BID. This is lower than the
== END 2020-11-09 15:25 | disposition home or self-care (01) | DRG 378 ==
LOC: ANHED 15:42 → ANH3MED 18:36
PROVIDERS: Emergency Medicine; Internal Medicine Gastroenterology; Nurse Practitioner; Physician Assistant; Admitting Provider Internal Medicine; Emergency Provider Emergency Medicine; PCP Family Medicine; Visit Provider Internal Medicine
PROC: 0DJ08ZZ Inspection of Upper Intestinal Tract, Via Natural or Artificial Opening Endoscopic (ICD-10-PCS; CPT 43235; principal; 2020-11-08 12:00)
DX: K92.2 Gastrointestinal hemorrhage, unspecified (principal); D62 Acute posthemorrhagic anemia; I82.461 Acute embolism and thrombosis of right calf muscular vein; K21.00 Gastro-esophageal reflux disease with esophagitis, without bleeding; K64.8 Other hemorrhoids; D12.5 Benign neoplasm of sigmoid colon; E53.8 Deficiency of other specified B group vitamins; E66.9 Obesity, unspecified; Z68.30 Body mass index [BMI] 30.0-30.9, adult; Z90.710 Acquired absence of both cervix and uterus
CPT/HCPCS: 36415; 36430; 80048; 80053; 82607; 82728; 82746; 85014; 85018; 85025; 85055; 85610; 85730; 86850; 86900; 86901; 86920; 87081; 88305; 93005; 96361; 96374; 99285; A9270; C9113; G0378; J1756; J2704; J3420; J7050; J7120; P9016

== ENCOUNTER 2022-01-08 15:02 | Outpatient (CLI) | payer OTHER, SELFPAY ==
[2022-01-08 15:48] LABS: Basophils Percent Auto 0.4 % (0.2-1.2); Eosinophils Absolute Auto 0.2 K/mm3 (0-0.3); Eosinophils Percent Auto 2.7 % (0-4.4); Hematocrit 27.4 % (37.0-47.0); Hemoglobin 7.6 g/dL (12.0-15.0); Immature Granulocyte Absolute 0.02 K/mm3 (0.00-0.031); Immature Granulocyte Percent A 0.3 % (0-0.5); Lymphocytes Percent Auto 32.5 % (18.3-44.2); Mean Corpuscular HGB Conc 27.7 g/dl (32-36); Mean Corpuscular Hemoglobin 21.1 pg (26-34); Mean Corpuscular Volume 76.1 fl (80-100); Mean Platelet Volume 11.5 fl (7.4-10.4); Monocytes Absolute Auto 0.6 K/mm3 (0.1-0.6); Monocytes Percent Auto 8.3 % (2.6-8.5); Neutrophils Absolute Auto 4.1 K/mm3 (1.3-6.7); Neutrophils Percent Auto 55.8 % (45.5-73.1); Platelet Count Result 308 k/mm3 (150-375); Red Cell Distribution Width 17.6 % (11.5-14.5); White Blood Count 7.4 K/mm3 (4.5-10.0)
[2022-01-08 16:45] LABS: Anisocytosis 1+ (NORMAL); Hypochromasia 2+ (NORMAL); Microcytosis 1+ (NORMAL); Platelet Estimate Adequate (Adequate)
[2022-01-08 16:46] LABS: Ovalocytes 1+ (NORMAL); Polychromasia 1+ (NORMAL)
[2022-01-08 16:51] LABS: Iron 34 ug/dL (37-170)
[2022-01-08 17:06] LABS: Alanine Aminotransferase 12 U/L (6-35); Albumin Level 3.8 g/dL (3.5-5.1); Alkaline Phosphatase 57 U/L (38-126); Anion Gap 9 mmol/L (8-16); Aspartate Amino Transferase 22 U/L (14-36); Bilirubin,Total 0.5 mg/dL (0.2-1.3); Blood Urea Nitrogen 19 mg/dL (7-17); Calcium 8.6 mg/dL (8.4-10.2); Carbon Dioxide 24 mmol/L (22-30); Chloride 107 mmol/L (98-107); Estimated Glomerular Filt Rate > 60; Glucose 104 mg/dL (65-110); Lactate Dehydrogenase 161 U/L (120-246); Potassium 4.2 mmol/L (3.4-5.0); Sodium 140 mmol/L (137-145)
[2022-01-08 17:08] LABS: Percent Iron Saturation 7 % (20-50)
[2022-01-08 17:30] LABS: Ferritin 4.35 ng/mL (11.1-264)
[2022-01-08 18:03] LABS: Folic Acid 12.5 ng/mL (2.76->20)
== END 2022-01-08 15:03 | disposition home or self-care (01) ==
LOC: ANHLAB 15:04
PROVIDERS: PCP Family Medicine; Visit Provider Internal Medicine Hematology & Oncology
DX: D64.9 Anemia, unspecified (principal)
CPT/HCPCS: 36415; 80053; 82607; 82728; 82746; 83540; 83550; 83615; 85025

== ENCOUNTER 2022-01-14 12:39 | Outpatient (CLI) | payer OTHER, SELFPAY ==
--- NOTE | ~2022-01-14 | US_ITS ---
EXAMINATION: US abdomen complete DATE: 01/14/2022 13:34 INDICATION: LT UPPER QUAD ABD PAIN TECHNIQUE: Multiple grayscale and Doppler ultrasound images of the abdomen were obtained. COMPARISON: CT abdomen and pelvis 02/14/2019. FINDINGS: The visualized portions of the pancreas are normal. The liver is normal size with increased echogenicity and normal echotexture. No surface nodularity. Normal hepatopetal flow in the main port al vein. Gallstones. 4 mm gallbladder wall. No surrounding fluid. The common bile duct measures 4 mm. There was no sonographic Arceo sign. Fusiform dilation of the abdominal aortic aneurysm, measuring up to 3.5 cm, proximally (was 2.[address] The visualized portions of the inferior vena cava are normal. The right kidney measures 10.8 x 4.2 x 5.2 cm. The left kidney measures 13.0 x 4.9 x 6.8 cm. The kidn eys demonstrate normal parenchymal echogenicity. 1.2 cm simple left midpole cyst. There is no hydrone phrosis. The spleen is normal in appearance and measures 11.6 cm. IMPRESSION: Cholelithiasis, with nonspecific gallbladder wall thickening, HIDA scanning may be helpful for furthe r evaluation. Echogenic liver, most commonly due to steatosis but also can be seen with hepatitis and fibrosis. 3.5 cm fusiform suprarenal abdominal aortic aneurysm, recommend ultrasound follow-up in 2 years. Reviewed, dictated and finalized at [facility]. IMPRESSION: Cholelithiasis, with nonspecific gallbladder wall thickening, HIDA scanning may be helpful for further evaluation. Echogenic liver, most commonly due to steat osis but also can be seen with hepatitis and fibrosis. 3.5 cm fusiform supraren al abdominal aortic aneurysm, recommend ultrasound follow-up in 2 years.
== END 2022-01-14 12:40 | disposition home or self-care (01) ==
PROVIDERS: PCP Family Medicine; Visit Provider Internal Medicine Hematology & Oncology
DX: R10.12 Left upper quadrant pain (principal); K80.20 Calculus of gallbladder without cholecystitis without obstruction
CPT/HCPCS: 76700

== ENCOUNTER 2022-04-16 07:06 | Outpatient (RCR) | payer OTHER, SELFPAY ==
[2022-04-16] VITALS (9 sets, daily range): BP systolic 105–121; BP diastolic 60–72; PULSE 66–84; RESP 16; TEMP 36.7–37.1; O2SAT 96–99
[2022-04-16] MEDS: SODIUM CHLORIDE 0.9% IV 250 ML 30 ML IV CONT (08:05)
[2022-04-16] MEDS: ACETAMINOPHEN 325 MG TABLET 650 MG PO (08:23)
[2022-04-16] MEDS: diphenhydrAMINE HCl CAP 25 MG CAPSULE PO (08:24)
[2022-04-16] MEDS: FUROSEMIDE INJ 40 MG/4 ML VIAL 20 MG IV PUSH (10:49)
== END 2022-07-15 23:59 | disposition home or self-care (01) ==
LOC: ANHCPCTRAN 07:06
PROVIDERS: PCP Family Medicine; Visit Provider Internal Medicine Hematology & Oncology
DX: D50.9 Iron deficiency anemia, unspecified (principal)
CPT/HCPCS: 36415; 36430; 86850; 86900; 86901; 86923; 96374; A9270; J1940; J7050; P9016

== ENCOUNTER 2022-05-09 01:00 | Day surgery (SDC) | payer OTHER, SELFPAY ==
[2022-04-30 11:45] VITALS: BMI 27.6
--- NOTE | 2022-05-08 19:54 | PM.HPGS ---
History of Present Illness History of Present Illness Consent: Risks, benefits, and alternatives have been discussed and questions answered. Patient agrees to proceed with procedure. Chief complaint: JEANNIE, Peptic Ulcer Disease Narrative: Jazmín Osorio is a 61 year old female with severe aneia, Hgb 5.7, microcytic. She has been anemic for couple of years. Her iron levels have been dropping. She had colonoscopy 3 years ago with removal of couple of polyps. Review of Systems Review of Systems: All systems reviewed & are unremarkable except as noted in HPI and below PMFSH Past Medical History Medical History Abdominal aortic aneurysm (AAA) 3.0 cm to 5.0 cm in diameter in female Anemia Bilateral calf pain Dizziness Fatigue Gastric ulcer, acute with hemorrhage 2019 with positive Nasrin-test for H.pylori Generalized abdominal pain Vitamin B12 deficiency Surgical History Surgical History H/O total hysterectomy History of 3 sections History of colonoscopy with polypectomy 2019 History of esophagogastroduodenoscopy (EGD) 2019-esophagitis, gastric ulcer, positive Nasrin-test for H.pylori Family History Family History Father Family history of glaucoma, Onset Age: 0 Gout Cancer of kidney Kidney failure Skin cancer Mother Family history of cardiovascular disease Gout Diabetes mellitus Hypertension Social History Social History Social History: The patient is lives with her . 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 She desires to have her as a durable power claims attorney for healthcare. She desires to be a full code. She is a lifelong nonsmoker. She does not use any alcohol marijuana or illicit drugs. Smoking status: Never smoker Second hand tobacco smoke exposure: No Alcohol intake: never Substance use: never Substance use type: does not use Living arrangements: with family Gender identity (if verbalized by the patient): Female Sexual Orientation (if Verbalized by the Patient): Straight or Heterosexual Spiritual care concerns: No Meds Home Medications and Allergies Home Medications Medication Instructions Recorded Confirmed Type iron 18 mg tablet 21 mg PO DAILY 10/17/21 05/09/22 History pantoprazole 40 mg tablet,delayed 40 mg PO QAM 90 days #90 tabs 04/22/22 05/09/22 Rx release polyethylene glycol 3350 17 gram 17 g PO DAILY #100 ea 04/22/22 05/09/22 Rx oral powder packet (Miralax) Allergies Allergy/AdvReac Type Severity Reaction Status Date / Time No Known Allergies Allergy Unknown Verified 05/09/22 08:06 Exam Const: General: alert Orientation/consciousness: patient oriented x3 Resp: Auscultation: clear to auscultation bilaterally Cardio: Rhythm: regular rhythm GI: GI Palp: Yes Soft to palpation and No Tenderness to palpation present (GI) Neuro: General: patient oriented x3 Assessment and Plan Assessment and plan (1) JEANNIE (iron deficiency anemia): Code(s): D50.9 - Iron deficiency anemia, unspecified Status: Acute Assessment and Plan: EGD with possible biopsy or dilatation or cautery.
[2022-05-09 08:06] VITALS: BP 141/76; PULSE 70; RESP 17; TEMP 36.3; O2SAT 97; BMI 28.0
[2022-05-09] MEDS: LACTATED RINGERS 1,000 ML 150 ML IV CONT (08:13)
--- NOTE | 2022-05-09 09:00 | WPDANESEPPF ---
Anes - Initial Pre Proc Eval Procedure: Operation Date: 05/09/22 09:30 Proposed Procedures p Esophagogastroduodenoscopy - Alex Castillo MD Date/Time: 05/09/22 09:00 Surgeon: Alex Castillo MD Pre Op Diagnosis: JEANNIE, Peptic Ulcer Disease Patient Data Age: 61 Gender: F Height: 1.7 m Weight: 81.1 kg Last Vital Signs Temp 97.3 F L 05/09/22 08:06 Pulse 70 05/09/22 08:06 Resp 17 05/09/22 08:06 BP 141/76 H 05/09/22 08:06 Pulse Ox 97 05/09/22 08:06 O2 Del Method Room Air 05/09/22 08:06 Allergies Allergy/AdvReac Type Severity Reaction Status Date / Time No Known Allergies Allergy Unknown Verified 05/09/22 08:06 Home Medications Medication Instructions Recorded Confirmed Type iron 18 mg tablet 21 mg PO DAILY 10/17/21 05/09/22 History pantoprazole 40 mg tablet,delayed 40 mg PO QAM 90 days #90 tabs 04/22/22 05/09/22 Rx release polyethylene glycol 3350 17 gram 17 g PO DAILY #100 ea 04/22/22 05/09/22 Rx oral powder packet (Miralax) Patient hx anesthesia problems: none Family hx anesthesia problems: none Results Review: All pre-operative results and documents have been reviewed as part of the pre-operative evaluation. [facility] Past Medical History Medical History Abdominal aortic aneurysm (AAA) 3.0 cm to 5.0 cm in diameter in female Anemia Bilateral calf pain Dizziness Fatigue Gastric ulcer, acute with hemorrhage 2019 with positive Nasrin-test for H.pylori Generalized abdominal pain Vitamin B12 deficiency Surgical History Surgical History H/O total hysterectomy History of 3 sections History of colonoscopy with polypectomy 2019 History of esophagogastroduodenoscopy (EGD) 2019-esophagitis, gastric ulcer, positive Nasrin-test for H.pylori Family History Family History Father Family history of glaucoma, Onset Age: 0 Gout Cancer of kidney Kidney failure Skin cancer Mother Family history of cardiovascular disease Gout Diabetes mellitus Hypertension Social History Social History Social History: The patient is lives with her . 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 She desires to have her as a durable power deputy prosecuting attorney for healthcare. She desires to be a full code. She is a lifelong nonsmoker. She does not use any alcohol marijuana or illicit drugs. Smoking status: Never smoker Second hand tobacco smoke exposure: No Alcohol intake: never Substance use: never Substance use type: does not use Living arrangements: with family Gender identity (if verbalized by the patient): Female Sexual Orientation (if Verbalized by the Patient): Straight or Heterosexual Spiritual care concerns: No Anes - Eval Final PreProcedure Day of Procedure 05/09/22 09:00 Patient weight: obese Heart: regular rate and rhythm Lungs: clear to auscultation Airway: Mallampati scale class II Neurological: alert and oriented Last oral intake: >/= 8 hours ASA classification: III Emergent: no Anesthetic plan: proceed Anesthesia type and monitoring: general GIVS and standard monitoring Results Review: All pre-operative results and documents have been reviewed as part of the pre-operative evaluation. Informed Consent: The patient's anesthetic plan and its attendant risks and benefits were discussed with the patient/family/POA. Questions were solicited and answers provided to the satisfaction of the patient/family/POA.
[2022-05-09] MEDS: BENZOCAINE (*SP) 60 ML SPRAY CAN (HURRICAINE) 1 SPRAY MUCOUS MEM (09:23)
[2022-05-09 09:32] VITALS: BP 110/65; PULSE 67; RESP 15; O2SAT 94
[2022-05-09 09:42] VITALS: BP 95/64; PULSE 75; RESP 18; O2SAT 95
[2022-05-09 09:52] VITALS: BP 119/63; PULSE 71; RESP 20; O2SAT 97
== END 2022-05-09 10:08 | disposition home or self-care (01) ==
PROVIDERS: PCP Family Medicine; Visit Provider Internal Medicine Gastroenterology
PROC: 0DJ08ZZ Inspection of Upper Intestinal Tract, Via Natural or Artificial Opening Endoscopic (ICD-10-PCS; CPT 43235; principal; 2022-05-09 09:30)
DX: D50.9 Iron deficiency anemia, unspecified (principal); K21.00 Gastro-esophageal reflux disease with esophagitis, without bleeding; K22.2 Esophageal obstruction; K29.70 Gastritis, unspecified, without bleeding; K44.9 Diaphragmatic hernia without obstruction or gangrene; I71.40 Abdominal aortic aneurysm, without rupture, unspecified; Z87.11 Personal history of peptic ulcer disease; E66.9 Obesity, unspecified; Z68.28 Body mass index [BMI] 28.0-28.9, adult
CPT/HCPCS: 43239; 87081; 88305; J2704; J7120

== ENCOUNTER 2022-05-21 14:53 | Outpatient (CLI) | payer OTHER, SELFPAY ==
--- NOTE | ~2022-05-21 | MM_ITS ---
EXAMINATION: MM screening gus BI w stef HISTORY: Screening mammogram TECHNIQUE: Craniocaudal and mediolateral oblique 3-D tomosynthesis images were obtained and synthetic 2-D images were generated. CAD analysis was submitted and interpreted. COMPARISON: No prior mammogram is available for comparison at this institution. BREAST PARENCHYMAL COMPOSITION: There are scattered areas of fibroglandular density. FINDINGS: RIGHT BREAST: There is focal asymmetry in the middle/posterior third of the upper outer quadrant of t he breasts. LEFT BREAST: There is a possible mass in the middle third of the outer breast best appreciated 9.5 cm from the nipple on the craniocaudal view. IMPRESSION: 1. Bilateral breast findings as described above. 2. Additional mammographic views and possible breast ultrasound are recommended. BI-RADS Category 0: Incomplete: Needs additional imaging evaluation. Reviewed, dictated and finalized at location [facility]. [employer] IMPRESSION: 1. Bilateral breast findings as described above. 2. Additional mammographic views and possible breast ultrasound are recommended . BI-RADS Category 0: Incomplete: Needs additional imaging evaluation.
== END 2022-05-21 14:54 | disposition home or self-care (01) ==
LOC: ANHIMG 14:54
PROVIDERS: PCP Family Medicine; Visit Provider Family Medicine
DX: Z12.31 Encounter for screening mammogram for malignant neoplasm of breast (principal); R92.8 Other abnormal and inconclusive findings on diagnostic imaging of breast
CPT/HCPCS: 77063; 77067

== ENCOUNTER 2022-06-06 13:03 | Outpatient (CLI) | payer OTHER, SELFPAY ==
--- NOTE | ~2022-06-06 | MMUS_ITS ---
EXAMINATION: MM diagnostic gus BI w stef, US breast BI limited HISTORY: Follow-up breast asymmetries TECHNIQUE: Additional 3-D tomosynthesis images of the breasts were performed and synthetic 2-D images were generated. CAD analysis was submitted and interpreted. High resolution limited bilateral breast ultrasound was performed. COMPARISON: 05/21/2022 BREAST PARENCHYMAL COMPOSITION: Breast composed of scattered areas of fibroglandular density FINDINGS: MAMMOGRAPHIC FINDINGS: There are no suspicious masses, calcifications or architectural distortion in the right breast to sug gest malignancy. There is a partially obscured mass in the mid outer aspect of the left breast, middl e third. There are no suspicious calcifications in either breast. ULTRASOUND: Limited right breast ultrasound: Normal heterogeneous echotexture without focal solid or cystic mass. Limited left breast ultrasound: At 4:00, 8 cm from the nipple, there is an oval circumscribed hypoech oic mass measuring 8 x 7 x 5 mm without significant posterior features or internal vascularity. IMPRESSION: 1. Probable benign left breast mass at 4:00, 8 cm from the nipple. No evidence for malignancy in the right breast. 2. Recommend 6 month follow-up diagnostic left mammogram and ultrasound BI-RADS category 3, probably benign findings. Reviewed, dictated and finalized at location A. ER RESOURCE TECHNICIAN IMPRESSION: 1. Probable benign left breast mass at 4:00, 8 cm from the nipple. No evidence for malignancy in the right breast. 2. Recommend 6 month follow-up diagnostic left mammogram and ultrasound BI-RADS category 3, probably benign findings.
== END 2022-06-06 13:04 | disposition home or self-care (01) ==
LOC: ANHIMG 13:04
PROVIDERS: PCP Family Medicine; Visit Provider Family Medicine
DX: N63.23 Unspecified lump in the left breast, lower outer quadrant (principal)
CPT/HCPCS: 76642; 77062; 77066; G0279

== ENCOUNTER 2022-09-23 11:54 | Outpatient (CLI) | payer OTHER, SELFPAY ==
[2022-09-23 12:28] LABS: Basophils Percent Auto 0.3 % (0.2-1.2); Eosinophils Absolute Auto 0.2 K/mm3 (0-0.3); Eosinophils Percent Auto 3.6 % (0-4.4); Hematocrit 36.6 % (37.0-47.0); Hemoglobin 11.1 g/dL (12.0-15.0); Immature Granulocyte Absolute 0.02 K/mm3 (0.00-0.031); Immature Granulocyte Percent A 0.3 % (0-0.5); Lymphocytes Absolute Auto 2.03 K/mm3 (0.9-3.2); Lymphocytes Percent Auto 35.2 % (18.3-44.2); Mean Corpuscular HGB Conc 30.3 g/dl (32-36); Mean Corpuscular Hemoglobin 26.1 pg (26-34); Mean Corpuscular Volume 86.1 fl (80-100); Mean Platelet Volume 10.9 fl (7.4-10.4); Monocytes Absolute Auto 0.5 K/mm3 (0.1-0.6); Monocytes Percent Auto 8.1 % (2.6-8.5); Neutrophils Percent Auto 52.5 % (45.5-73.1); Platelet Count Result 278 k/mm3 (150-375); Red Blood Count 4.25 M/mm3 (4.2-5.4); Red Cell Distribution Width 15.6 % (11.5-14.5); White Blood Count 5.8 K/mm3 (4.5-10.0)
[2022-09-23 12:37] LABS: Alanine Aminotransferase 21 U/L (6-35); Albumin Level 4.2 g/dL (3.5-5.1); Alkaline Phosphatase 64 U/L (38-126); Anion Gap 5 mmol/L (8-16); Aspartate Amino Transferase 28 U/L (14-36); Bilirubin,Total 1.1 mg/dL (0.2-1.3); Blood Urea Nitrogen 16 mg/dL (7-17); Calcium 8.7 mg/dL (8.4-10.2); Carbon Dioxide 31 mmol/L (22-30); Chloride 105 mmol/L (98-107); Cholesterol 179 mg/dL (0-200); Estimated Glomerular Filt Rate > 60; Glucose 79 mg/dL (65-110); HDL Direct 44 mg/dL; Sodium 141 mmol/L (137-145); Triglycerides 147 mg/dL (<150)
[2022-09-23 12:48] LABS: LDL Cholesterol Direct 97 mg/dL
[2022-09-23 12:50] LABS: Iron 43 ug/dL (37-170)
[2022-09-23 12:59] LABS: Percent Iron Saturation 10 % (20-50)
== END 2022-09-23 11:55 | disposition home or self-care (01) ==
LOC: ANHLAB 11:55
PROVIDERS: PCP Family Medicine; Visit Provider Family Medicine
DX: E03.9 Hypothyroidism, unspecified (principal); I10 Essential (primary) hypertension; D50.9 Iron deficiency anemia, unspecified; K20.90 Esophagitis, unspecified without bleeding; E78.2 Mixed hyperlipidemia
CPT/HCPCS: 36415; 80053; 80061; 83540; 83550; 84443; 85025

== ENCOUNTER 2023-07-04 22:03 | Observation (INO) | payer OTHER, SELFPAY ==
--- NOTE | ~2023-07-04 | CT_ITS ---
EXAMINATION: CT abdomen pelvis w con DATE: 07/05/2023 02:26 INDICATION: Abdominal pain. TECHNIQUE: Computed tomography (CT) of the abdomen and pelvis was performed with 100 mL Omnipaque 350 intravenous contrast. Automated exposure control and iterative reconstruction technique were employe d. The dose-length product was 454.47 mGy-cm. COMPARISON: CT abdomen and pelvis 02/14/2019 FINDINGS: The visualized portions of the lung bases demonstrate mild atelectasis. No pleural effusion . Cardiomegaly is noted. There is a moderate-sized sliding hiatal hernia. The liver is normal. There are gallstones in the gallbladder, which is normal in size. The spleen, pancreas, and adrenal glands are normal. There is cortical thinning of the kidneys. There is a 2 mm stone in right kidney. There a re cysts in the kidneys measuring up to 17 mm on the left. There is a right inguinal hernia containin g fat. There are no dilated loops of bowel. The appendix is normal. There are no pathologically enlar ged lymph nodes. There is no free intraperitoneal fluid. There is a benign bone island in right ilium . There is moderate thoracic spondylosis and mild lumbar spondylosis. There is mild chronic anterior wedging of multiple thoracic vertebral bodies. IMPRESSION: 1. Moderate-sized sliding hiatal hernia. 2. Right inguinal hernia containing fat. Reviewed, dictated and finalized at location A. ET MAKER
--- NOTE | ~2023-07-04 | XR_ITS ---
EXAMINATION: XR chest 2V DATE: 07/05/2023 09:53 INDICATION: Cough. Wheezing. TECHNIQUE: Frontal and lateral views of the chest were obtained on 3 radiographs. COMPARISON: Chest 2 views 02/14/2019, CT abdomen and pelvis 07/05/2023 FINDINGS: There is mild atelectasis in left upper lobe. No pleural effusion or pneumothorax. The hear t size is normal. There is a moderate-sized hiatal hernia. There is a prominent right paracardial fat pad. There is mild chronic anterior wedging of multiple vertebral bodies. IMPRESSION: 1. Mild atelectasis in left upper lobe. 2. Moderate-sized hiatal hernia. Reviewed, dictated and finalized at location A. AND COMPLIANCE ANALYTICS DIRECTOR
[2023-07-04 22:04] VITALS: BP 87/53; PULSE 88; RESP 16; TEMP 36.6; O2SAT 100
--- NOTE | 2023-07-04 22:08 | ECG_ITS ---
Measurements Intervals [place] Rate: 85 P: 30 MT: 158 QRS: 16 QRSD: 90 T: 21 QT: 347 QTc: 413 Interpretive Statements SINUS RHYTHM WITH SINUS ARRHYTHMIA BASELINE ARTIFACT- I, III, AVR, AVL, AVF, V1 NORMAL ECG COMPARED TO ECG 11/06/2020 14:55:10 SINUS ARRHYTHMIA NOW PRESENT Electronically Signed On 07-05-2023 7:03:33 [employer] by Sandeep Méndez D.O.
[2023-07-04 22:46] VITALS: BP 105/69; PULSE 87; RESP 17; O2SAT 96
[2023-07-04 22:47] VITALS: PULSE 86; RESP 18; O2SAT 93
[2023-07-04 22:57] LABS: Hematocrit 21.3 % (37.0-47.0); Immature Platelet Fraction Pct 8.9 % (0.9-11.2); Mean Corpuscular Hemoglobin 13.4 pg (26-34); Platelet Count Result 248 k/mm3 (150-375); Red Blood Count 3.67 M/mm3 (4.2-5.4); Red Cell Distribution Width 22.7 % (11.5-14.5); White Blood Count 2.8 K/mm3 (4.5-10.0)
[2023-07-04 23:05] LABS: Hemoglobin 4.9 g/dL (12.0-15.0)
[2023-07-04] MEDS: MORPHINE SULFATE (*CRX) 4 MG/ML INJ IV PUSH (23:10)
[2023-07-04] MEDS: ONDANSETRON INJ 4 MG/2 ML VIAL IV PUSH (23:10)
[2023-07-04] MEDS: SODIUM CHLORIDE 0.9% IV 1,000 ML 999 ML IV CONT (23:10)
[2023-07-04 23:14] LABS: Anisocytosis 2+ (NORMAL); Lymphocytes Absolute Manual 1.28 K/mm3 (1.1-4.5); Macrocytosis 1+ (NORMAL); Microcytosis 1+ (NORMAL); Myelocytes Percent 2 %; Neutrophils Percent Manual 52 % (46-73); Nucleated Red Blood Cells 2 %; Ovalocytes 1+ (NORMAL); Platelet Estimate Adequate (Adequate); Poikilocytosis 1+ (NORMAL); Total Cells Counted 50
[2023-07-04 23:15] LABS: Schistocytes Rare (NORMAL); Tear Drop Cells 1+ (NORMAL)
[2023-07-04 23:31] LABS: Lactic Acid Reflex 1.2 mmol/L (0.7-2.0); Prothrombin Time 13.1 Seconds (11.1-14.7)
[2023-07-04 23:32] LABS: Influenza A QL RT-PCR Positive (Negative); Influenza B QL RT-PCR Negative (Negative); Partial Thromboplastin Time 26.2 SECONDS (22.3-36.8); RSV RNA, RT-PCR Negative (Negative); SARS-CoV-2 RNA PCR Negative (Negative)
[2023-07-04 23:33] VITALS: PULSE 79; RESP 16; O2SAT 96
[2023-07-04 23:45] VITALS: PULSE 80; RESP 15; O2SAT 97
[2023-07-04 23:49] LABS: Troponin I < 0.012 ng/mL (0.000-0.034)
[2023-07-04 23:54] LABS: Procalcitonin 0.1 ng/mL
[2023-07-05] VITALS (30 sets, daily range): BP systolic 92–113; BP diastolic 45–71; PULSE 65–88; RESP 12–22; TEMP 36.2–37.4; O2SAT 84–100; BMI 27.3
[2023-07-05 00:16] LABS: Appearance Urine Clear (Clear); Bacteria Urine None Seen /hpf; Bilirubin Urine Negative (Negative); Blood Urine Negative (Negative); Color Urine Yellow (Yellow); Glucose Urine UA Negative (Negative); Ketones Urine Negative (Negative); Leukocyte Esterase Ur Trace LEU/UL (Negative); Nitrate Urine Negative (Negative); Protein Urine Trace mg/dL (Negative); RBC Urine 0-2 /hpf (0-2); Specific Grav Ur 1.018 (1.001-1.035); Squamous Epithelial Cell Urine None seen /hpf (Few); WBC Urine 0-5 /hpf
[2023-07-05 00:17] LABS: Add Urine Microscopic? YES
--- NOTE | 2023-07-05 01:18 | ED.GENADULT ---
HPI - General Adult General Chief complaint: Abdominal Pain Stated complaint: abd pain Time Seen by Provider: 07/04/23 22:52 History of Present Illness HPI narrative: Patient is a 63-year-old female who presents emergency department with chief complaint of abdominal pain and generalized weakness. The patient reports she was diagnosed with COVID-19 with a positive home test was started on Paxil over the patient states that she started having some nausea vomiting and reports that she has been very weak and unable to stand on her own. Patient reports that she has history of chronic anemia and is currently not on any blood thinners. The patient denies blood in her stool denies black tarry stool. Related Data Home Medications Medication Instructions Recorded Confirmed iron 18 mg tablet 21 mg PO DAILY 10/17/21 09/29/22 Allergies Allergy/AdvReac Type Severity Reaction Status Date / Time No Known Allergies Allergy Unknown Verified 02/26/23 15:15 Review of Systems Review of Systems: A 10 system review of systems was completed on the patient and is negative except for what is stated in the HPI. Nursing and ancillary documentation was reviewed. [facility] Past Medical History Medical History Abdominal aortic aneurysm (AAA) 3.0 cm to 5.0 cm in diameter in female Anemia Bilateral calf pain Dizziness Fatigue Gastric ulcer, acute with hemorrhage 2019 with positive Nasrin-test for H.pylori Generalized abdominal pain Vitamin B12 deficiency Surgical History Surgical History H/O total hysterectomy History of 3 sections History of colonoscopy with polypectomy 2019 History of esophagogastroduodenoscopy (EGD) 2019-esophagitis, gastric ulcer, positive Nasrin-test for H.pylori Family History Family History Father Family history of glaucoma, Onset Age: 0 Gout Cancer of kidney Kidney failure Skin cancer Mother Family history of cardiovascular disease Gout Diabetes mellitus Hypertension Social History Social History Social History: The patient is lives with her . 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 She desires to be a full code. She is a lifelong nonsmoker. She does not use any alcohol marijuana or illicit drugs. Smoking status: Never smoker Second hand tobacco smoke exposure: No Alcohol intake: never Substance use: never Substance use type: does not use Lack of Transportation: No Lack of Food: Never True Current Housing: I Have Housing Concerned About Future Housing: No Difficulty Paying Gas/Electric Bills: No Difficulty Paying for Meds: No Currently Unemployed: YES Education: Don't Know Difficulty w/ Childcare or Family Care: No Living arrangements: with family Occupation/Education: retired Gender identity (if verbalized by the patient): Female Sexual Orientation (if Verbalized by the Patient): Straight or Heterosexual Spiritual care concerns: No Exam Narrative: GENERAL: Well-appearing, well-nourished, and in no acute distress. HEAD: Normocephalic, atraumatic. EYES: PERRLA and EOMI. ENT: Nares clear, no rhinorrhea or epistaxis. Mucous membranes moist. NECK: Supple. CHEST: Clear to auscultation. No respiratory distress. HEART: Regular rate and rhythm. No murmur heard. Normal peripheral pulses. ABDOMEN: Soft, nontender, nondistended, normal active bowel sounds. : Guaiac negative stool EXTREMITIES: Normal range of motion. No edema. SKIN: Warm, dry, no rash. NEURO: No focal deficits. Alert and oriented x3. PSYCH: Normal mood and affect. Course Vital Signs Vital signs: Vital Signs Kyle
[2023-07-05] MEDS: SODIUM CHLORIDE 0.9% IV 250 ML 30 ML IV CONT ×2 (01:22→18:30)
[2023-07-05] MEDS: TUBING, BLOOD PLUM PUMP TUBING 1 EACH XX ×3 (01:32→18:30)
[2023-07-05 01:59] LABS: Alanine Aminotransferase 16 U/L (6-35); Albumin Level 3.6 g/dL (3.5-5.1); Alkaline Phosphatase 45 U/L (38-126); Anion Gap 7 mmol/L (8-16); Aspartate Amino Transferase 42 U/L (14-36); Bilirubin,Total 0.9 mg/dL (0.2-1.3); Blood Urea Nitrogen 22 mg/dL (7-17); Calcium 8.3 mg/dL (8.4-10.2); Carbon Dioxide 22 mmol/L (22-30); Chloride 103 mmol/L (98-107); Estimated CRCL calculation 63 ml/min; Estimated Glomerular Filt Rate > 60; Glucose 99 mg/dL (65-110); Lipase 225 U/L (23-300); Potassium 3.8 mmol/L (3.4-5.0); Sodium 132 mmol/L (137-145)
[2023-07-05 02:02] LABS: Immature Reticulocyte Fraction 24.4 % (3.0-15.9); Reticulocyte Hemoglobin Conten 14.1 pg (28.2-35.7); Reticulocyte Percent 1.31 % (0.7-4.3); Reticulocytes Absolute 0.05 M/mm3 (0.02-0.1)
[2023-07-05 02:13] LABS: Lactate Dehydrogenase 282 U/L (120-246)
[2023-07-05 02:15] LABS: Iron 31 ug/dL (37-170)
[2023-07-05 02:21] LABS: Percent Iron Saturation 8 % (20-50)
--- NOTE | 2023-07-05 02:57 | ECG_ITS ---
Measurements Intervals [place] Rate: 75 P: 34 MA: 144 QRS: 27 QRSD: 90 T: 21 QT: 375 QTc: 420 Interpretive Statements SINUS RHYTHM ATRIAL PREMATURE COMPLEX BORDERLINE ECG COMPARED TO ECG 07/04/2023 22:54:07 NO SIGNIFICANT CHANGES Electronically Signed On 07-05-2023 7:05:44 COMPANY SECRETARY by Sandeep Méndez D.O.
[2023-07-05 03:22] LABS: Troponin I < 0.012 ng/mL (0.000-0.034)
[2023-07-05 03:24] LABS: Folic Acid 13.3 ng/mL (2.76->20)
[2023-07-05 03:50] LABS: Hematocrit 22.7 % (37.0-47.0)
[2023-07-05 03:51] LABS: Hemoglobin 5.8 g/dL (12.0-15.0)
[2023-07-05] MEDS: OSELTAMIVIR PHOSPHATE 75 MG CAPSULE PO ×2 (04:37→21:30)
--- NOTE | 2023-07-05 05:24 | ADMGEN ---
This patient, Jazmín Osorio, was admitted to IMU Room 210-01 at 0518. Patient/family oriented to hospital policies and general routines including ID bracelet, bed and alarms, visiting hours, pain management, procedures, bathroom and other care routines, personal items, smoking policy, room service/diet, and visiting hours. Information on how to activate the Rapid Response Team has been discussed. Patient/Family are encouraged to report perceived risks to care and to ask questions if they do not understand what they are told or what they should do.
[2023-07-05 08:38] LABS: Hematocrit 27.5 % (37.0-47.0); Hemoglobin 7.2 g/dL (12.0-15.0)
--- NOTE | 2023-07-05 08:41 | PM.IMHP ---
H&P: HPI History of Present Illness Date/Time: 07/05/23 08:41 Chief Complaint: Weakness Narrative: 63-year-old female with history of chronic iron deficiency anemia was in her usual state of health until ThursdayJune 30. On that date she had onset of cough congestion wheezing shortness of breath yellow sputum production abdominal cramping and brown watery stools about 4 times a day. She had no fevers chills or rigors. On that day she did a home COVID test was positive. Two days later her doctor called in a prescription for Paxlovid. She took that as prescribed. With her cough she had chest pain but no exertional chest pain. In spite of her diarrhea and cough improving she continued to feel more weak. She was having difficulty ambulating across the room due to legs feeling as if they were going to buckle and shortness of breath. Because of that she presented to the emergency department on July 03 in the evening. There her swab for COVID was negative but flu a was positive. RSV was negative. Her hemoglobin was 4.9 and white count 2.9. She was transfused with 1 unit of packed cells and started on Tamiflu 75 mg twice daily. After the 1st unit of packed cells her hemoglobin was 5.8 and after the 2nd unit of packed cells her hemoglobin was 7.2. She was feeling much better. She continued to cough and wheeze soft. She still had 1 loose stool on the morning of July 04 but much less cramping. No blood in the stool. During the weekend just prior to onset of symptoms she and her traveled [facility] [facility] [employer] to a casino that was very crowded. She had no other travel or known exposures. She drinks city water. She has a dog at home but the dog is been well. She has not eaten any foods that were left over is a or that tasted bad. However while taking Paxil of it she did have a horrible metallic taste when she ate anything. She has a history of anemia for 40 years. This was 1st diagnosed during her initial . She had a syncopal episode. She was diagnosed with severe iron deficiency. She has taken iron intermittently since then. However she has remained anemic. In 2020 she was hospitalized for a right leg DVT and severe anemia with hemoglobin 5.1. She received 3 units of blood during that admission. She was treated with low-dose Eliquis and iron. EGD in 2020 showed esophagitis and gastritis without active bleeding. Colonoscopy showed internal hemorrhoids and sigmoid polyps without active bleeding. Repeat EGD in 2022 showed esophagitis and gastritis. In February of 2019 she was hospitalized with a hemoglobin of 5.1 and receive 3 units of packed red cells for transfusion. She was found to have a bleeding gastric ulcer and was H pylori positive. She was treated for H pylori and has had no recurrence of the ulcer. At that time she had melena. She has not had melena before or since. Note: Colon polyp in 2022 was tubular adenoma. Duodenal biopsy 2022 showed abnormalities that could be due to inflammation or dysplasia. She has a chronic history of alternating constipation for 2-3 days followed by episodes watery diarrhea and abdominal cramping, mostly left lower quadrant. No bleeding with these episodes. Some bloating and increased flatulence. No noted food intolerances. Review of Systems Review of Systems: All systems reviewed & are unremarkable except as noted in HPI and below PMFSH Past Medical History Medical History (Updated 07/05/23 @ 09:04 by Vaibhav Le MD) Abdominal aortic aneurysm (AAA) 3.0 cm to 5.0 cm in diameter in female Acute blood loss anemia Acute deep vein thrombosis (DVT) of right lower extremity 2018 Anemia Bilateral calf pain Colon polyp tubular adenoma Dizziness Fatigue Gastric ulcer, acute with hemorrhage 2019 with positive Nasrin-test for H.pylori Generalized abdominal pain GI (gastrointestinal hemorrhage) Vitamin B12 deficiency Surgical History Surgical History (Updated 07/05/23 @
[2023-07-05] MEDS: AZELASTINE HCL NASAL 0.1% 137 MCG/SPR 30 ML BTL 1 SPRAY NASAL ×2 (09:54→21:30)
[2023-07-05] MEDS: FLUTICASONE PROPIONATE 0.05% NA SPR 16 GM BTL (*BKC) 1 SPRAY NASAL (09:54)
[2023-07-05] MEDS: PANTOPRAZOLE 40 MG TABLET PO (09:55)
[2023-07-05] MEDS: CYANOCOBALAMIN 1,000 MCG TABLET 1000 MCG PO (09:55)
[2023-07-05] MEDS: FOLIC ACID 1 MG TABLET PO (09:55)
[2023-07-05] MEDS: IRON SUCROSE COMPLEX 500 MG in SODIUM CHLORIDE 0.9% IV 250 ML 79 MG IVPB (09:55)
--- NOTE | 2023-07-05 11:13 | PC.NURSE ---
This RN received report from Dacia GOFF and has accepted to care for this pt.
--- NOTE | 2023-07-05 12:03 | ADMGEN ---
This patient, Jazmín Osorio, was admitted to 3 [facility] Surg Room 310-01 @ 1203. Patient/family oriented to hospital policies and general routines including ID bracelet, bed and alarms, visiting hours, pain management, procedures, bathroom and other care routines, personal items, smoking policy, room service/diet, and visiting hours. Information on how to activate the Rapid Response Team has been discussed. Patient/Family are encouraged to report perceived risks to care and to ask questions if they do not understand what they are told or what they should do.
--- NOTE | 2023-07-05 12:12 | PC.NURSE ---
This patient, Jazmín Osorio, was transferred to [3rd med surg ] on 07/05/23 at 1200. Personal belongings sent with patient. Report given to [DENVER Brown ]. Appropriate documentation, belonging, and medications sent with patient.
[2023-07-05] MEDS: guaiFENesin/DEXTROMETHORPHAN 10 ML UDC PO (16:50)
[2023-07-05 17:07] LABS: Hematocrit 26.4 % (37.0-47.0)
[2023-07-05] MEDS: ALBUTEROL SULFATE NEB 2.5 MG/3 ML INH INHALATION (17:11)
[2023-07-05 17:35] LABS: Hemoglobin 6.8 g/dL (12.0-15.0)
[2023-07-05 22:50] LABS: Hematocrit 28.5 % (37.0-47.0); Hemoglobin 7.8 g/dL (12.0-15.0)
[2023-07-06 04:31] VITALS: BP 107/67; PULSE 61; RESP 16; TEMP 36.4; O2SAT 98
[2023-07-06 07:16] LABS: Hematocrit 30.4 % (37.0-47.0); Hemoglobin 8.1 g/dL (12.0-15.0); Immature Platelet Fraction Pct 10.6 % (0.9-11.2); Mean Corpuscular HGB Conc 26.6 g/dl (32-36); Mean Corpuscular Hemoglobin 18.7 pg (26-34); Platelet Count Result 167 k/mm3 (150-375); Red Blood Count 4.34 M/mm3 (4.2-5.4); Red Cell Distribution Width 29.2 % (11.5-14.5); White Blood Count 3.8 K/mm3 (4.5-10.0)
[2023-07-06 07:42] LABS: Alanine Aminotransferase 14 U/L (6-35); Albumin Level 3.2 g/dL (3.5-5.1); Alkaline Phosphatase 38 U/L (38-126); Anion Gap 2 mmol/L (8-16); Aspartate Amino Transferase 33 U/L (14-36); Bilirubin,Total 0.8 mg/dL (0.2-1.3); Blood Urea Nitrogen 9 mg/dL (7-17); Calcium 8.2 mg/dL (8.4-10.2); Carbon Dioxide 26 mmol/L (22-30); Chloride 108 mmol/L (98-107); Estimated CRCL calculation 71 ml/min; Estimated Glomerular Filt Rate > 60; Glucose 82 mg/dL (65-110); Potassium 3.5 mmol/L (3.4-5.0); Sodium 136 mmol/L (137-145)
--- NOTE | 2023-07-06 08:18 | PM.IMPN ---
Progress Note: A&P Assessment and Plan (1) Symptomatic anemia: Code(s): D64.9 - Anemia, unspecified Status: Acute Assessment and Plan: 07/05/23: The combination of chronic gastrointestinal symptoms, iron deficiency despite iron replacement, and vitamin B12 deficiency suggest the possibility sprue. Rivasil over his known to cause leukopenia and may have played a role in marrow suppression. No evidence for acute gastrointestinal blood loss. Esophagitis and gastritis may contribute to chronic GI blood loss, stool for occult blood pending. 07/04 transferred from IMU to medical floor as Hgb 7.2 after 2 U PRBC. Monitor h/h 07/06/23: Hgb today 8.1, stable GI consulted, plan for EGD tomorrow (2) JEANNIE (iron deficiency anemia): Qualifiers: Iron deficiency anemia type: chronic blood loss Qualified Code(s): D50.0 - Iron deficiency anemia secondary to blood loss (chronic) Code(s): D50.9 - Iron deficiency anemia, unspecified Status: Acute Assessment and Plan: 07/05/23: Iron replacement IV and p.o. 07/06/23: No change to current treatment plan (3) Vitamin B12 deficiency: Code(s): E53.8 - Deficiency of other specified B group vitamins Status: Acute Assessment and Plan: 07/05/23: Continue p.o. B12 replacement with folic acid 07/06/23: No change to current treatment plan (4) Influenza A: Code(s): J10.1 - Influenza due to other identified influenza virus with other respiratory manifestations Status: Acute Assessment and Plan: 07/05/23: Continue Tamiflu 75 mg twice daily for 5 days CXR ordered. 07/06/23: No change to current treatment plan (5) Chronic erosive gastritis: Code(s): K29.40 - Chronic atrophic gastritis without bleeding Status: Acute Assessment and Plan: 07/05/23: Add pantoprazole 07/06/23: No change to current treatment plan (6) Esophagitis: Code(s): K20.90 - Esophagitis, unspecified without bleeding Status: Acute Assessment and Plan: 07/05/23: Add pantoprazole 07/06/23: No change to current treatment plan Subjective Date/time seen: 07/06/23 08:18 Interval history: This is a 63 year old female who presented to the hospital on 07/05/23 with complaints of weakness. Workup in the hospital included an abdomen pelvis CT which showed a moderate-sized sliding hiatal hernia, right inguinal hernia. Chest x-ray shows mild atelectasis in left upper lobe, moderate-sized hiatal hernia. A initial labs shown a hemoglobin of 4.9, hematocrit 21.3. Patient was given 2 units of blood. On examination today patient is alert oriented x3, lying in the bed. She denies any complaints nausea, vomiting, diarrhea, constipation, abdominal pain, chest pain, shortness a breath. Labs today show hemoglobin of 8.1, sodium 136, otherwise unremarkable. Will go ahead and get GI involved considering her past history. Review of Systems Review of Systems: All systems reviewed & are unremarkable except as noted in HPI and below Constitutional: Constitutional: Reports as per HPI and Reports no additional constitutional complaints Eyes: Eyes: Reports as per HPI and Reports no additional eye complaints ENT: Reports system reviewed and no additional complaints, except as documented and Reports as per HPI Cardiovascular: Cardiovascular: Reports as per HPI and Reports no additional cardiovascular complaints Respiratory: Respiratory: Reports as per HPI and Reports no additional respiratory complaints Gastrointestinal: Gastrointestinal: Reports as per HPI and Reports no additional gastrointestinal complaints Genitourinary: Genitourinary: Reports no additional female genitourinary complaints and Reports as per HPI Musculoskeletal: Musculoskeletal: Reports no additional musculoskeletal complaints and Reports as per HPI Integumentary/Breasts: Skin/Breast: Reports system reviewed and no additional complaints, except as docu and R
--- NOTE | 2023-07-06 08:51 | WPDGICN ---
Assessment and Plan Assessment and plan (1) Acute blood loss anemia: Code(s): D62 - Acute posthemorrhagic anemia <Shanti Toledo APRN - Last Filed: 07/06/23 09:11> Status: Acute <Shanti Toledo APRN - Last Filed: 07/06/23 09:11> Assessment and Plan: -chronic history of iron deficiency anemia, she began having symptomatic anemia with hgb of 4.9 on arrival, transfused 2 units packed red blood cells. Hemoglobin is now 8.1 she is feeling much better. No visible GI blood loss at this time. -CT abd/pelvis this admission with moderate hiatal hernia, nothing acute. -History of gastric ulcer due to h.pylori in 2019-treated -EGD in 05/2022 with moderate gastritis, reflux esophagitis grade 3, moderate hiatal hernia. -Last colonoscopy in 2020 with no evidence of GI blood loss -EGD to be arranged tomorrow to assess for underlying GI blood loss, peptic ulcer disease, gastritis -NPO after midnight -Monitor H&H, transfuse PRN -Monitor for any signs of active GI bleeding -Continue IV PPI -Discussed colonoscopy but she doesn't feel like she can tolerate prep at this point. Consider outpatient colonoscopy if no findings on EGD to explain <Shanti Toledo APRN - Last Filed: 07/06/23 09:11> (2) JEANNIE (iron deficiency anemia): Qualifiers: Iron deficiency anemia type: chronic blood loss Qualified Code(s): D50.0 - Iron deficiency anemia secondary to blood loss (chronic) <Shanti Toledo APRN - Last Filed: 07/06/23 09:11> Code(s): D50.9 - Iron deficiency anemia, unspecified <Shanti Toledo APRN - Last Filed: 07/06/23 09:11> Status: Acute <Shanti Toledo APRN - Last Filed: 07/06/23 09:11> Assessment and Plan: on IV iron <Shanti Toledo APRN - Last Filed: 07/06/23 09:11> (3) Influenza A: Code(s): J10.1 - Influenza due to other identified influenza virus with other respiratory manifestations <Shanti Toledo APRN - Last Filed: 07/06/23 09:11> Status: Acute <Shanti Toledo APRN - Last Filed: 07/06/23 09:11> Assessment and Plan: on tamiflu <Shanti Toledo APRN - Last Filed: 07/06/23 09:11> (4) HH (hiatus hernia): Code(s): K44.9 - Diaphragmatic hernia without obstruction or gangrene <Shanti Toledo APRN - Last Filed: 07/06/23 09:11> Status: Acute <Shanti Toledo APRN - Last Filed: 07/06/23 09:11> Assessment and Plan: Moderate Hiatal hernia on last EGD and recent CT. this can sometimes cause JEANNIE, EGD to be arranged <Shanti Toledo APRN - Last Filed: 07/06/23 09:11> (5) GERD with esophagitis: Code(s): K21.00 - Gastro-esophageal reflux disease with esophagitis, without bleeding <Shanti Toledo APRN - Last Filed: 07/06/23 09:11> Status: Acute <Shanti Toledo APRN - Last Filed: 07/06/23 09:11> Assessment and Plan: Continue PPI therapy Discussed that she will need PPI joint terminal attack controller with her history of gastritis and reflux esophagitis <Shanti Toledo APRN - Last Filed: 07/06/23 09:11> (6) Colon polyp: Code(s): K63.5 - Polyp of colon <Shanti Toledo APRN - Last Filed: 07/06/23 09:11> Status: Acute <Shanti Toledo APRN - Last Filed: 07/06/23 09:11> Assessment and Plan: Colonoscopy surveillance due in 2025 <Shanti Toledo APRN - Last Filed: 07/06/23 09:11> GI Consult Note Consult date/time: 07/06/23 08:51 <Shanti Toledo APRN - Last Filed: 07/06/23 09:11> Reason for consult: Anemia <Shanti Toledo APRN - Last Filed: 07/06/23 09:11> HPI: Jazmín Osorio is a 63 year old female. She has a chronic history of iron deficiency anemia, DVT, AAA, total hysterectomy, c section x 3. presented to [facility] ER 07/05/2023 for 5 days of cough, congestion, increasing shortness of breath abdominal cramping and diarrhea to 4 times per day. she also tells me that she was having increasing fatigue and just ambulating across
[2023-07-06] MEDS: FLUTICASONE PROPIONATE 0.05% NA SPR 16 GM BTL (*BKC) 1 SPRAY NASAL (09:06)
[2023-07-06] MEDS: AZELASTINE HCL NASAL 0.1% 137 MCG/SPR 30 ML BTL 1 SPRAY NASAL ×2 (09:06→20:40)
[2023-07-06] MEDS: CYANOCOBALAMIN 1,000 MCG TABLET 1000 MCG PO (09:07)
[2023-07-06] MEDS: OSELTAMIVIR PHOSPHATE 75 MG CAPSULE PO ×2 (09:07→20:40)
[2023-07-06] MEDS: PANTOPRAZOLE 40 MG TABLET PO (09:07)
[2023-07-06] MEDS: FERROUS SULFATE 325 MG TABLET DR PO (09:07)
[2023-07-06] MEDS: FOLIC ACID 1 MG TABLET PO (09:07)
[2023-07-06 14:00] VITALS: BP 109/58; PULSE 63; TEMP 36.2; O2SAT 95
[2023-07-06] MEDS: BISACODYL 5 MG TABLET EC PO (17:40)
[2023-07-06] MEDS: polyethylene glycoL 3350 238 GM BOTTLE PO (17:40)
[2023-07-06 20:30] VITALS: BP 124/61; PULSE 58; RESP 16; TEMP 36.5; O2SAT 94
[2023-07-07] VITALS (7 sets, daily range): BP systolic 83–138; BP diastolic 45–80; PULSE 56–108; RESP 13–25; TEMP 36.3–36.7; O2SAT 91–97
[2023-07-07] MEDS: MAGNESIUM CITRATE 300 ML BTL PO (05:02)
[2023-07-07 07:12] LABS: Hematocrit 30.7 % (37.0-47.0); Hemoglobin 8.2 g/dL (12.0-15.0); Immature Platelet Fraction Pct 11.1 % (0.9-11.2); Mean Corpuscular HGB Conc 26.7 g/dl (32-36); Mean Corpuscular Hemoglobin 18.8 pg (26-34); Mean Corpuscular Volume 70.3 fl (80-100); Platelet Count Result 169 k/mm3 (150-375); Red Blood Count 4.37 M/mm3 (4.2-5.4); Red Cell Distribution Width 30.5 % (11.5-14.5); White Blood Count 4.4 K/mm3 (4.5-10.0)
[2023-07-07 07:29] LABS: Anion Gap 7 mmol/L (8-16); Blood Urea Nitrogen 9 mg/dL (7-17); Calcium 8.7 mg/dL (8.4-10.2); Carbon Dioxide 26 mmol/L (22-30); Chloride 108 mmol/L (98-107); Estimated CRCL calculation 71 ml/min; Estimated Glomerular Filt Rate > 60; Glucose 96 mg/dL (65-110); Potassium 3.6 mmol/L (3.4-5.0); Sodium 141 mmol/L (137-145)
[2023-07-07] MEDS: PANTOPRAZOLE 40 MG TABLET PO (08:27)
[2023-07-07] MEDS: FLUTICASONE PROPIONATE 0.05% NA SPR 16 GM BTL (*BKC) 1 SPRAY NASAL (08:27)
[2023-07-07] MEDS: OSELTAMIVIR PHOSPHATE 75 MG CAPSULE PO ×2 (08:27→20:15)
[2023-07-07] MEDS: AZELASTINE HCL NASAL 0.1% 137 MCG/SPR 30 ML BTL 1 SPRAY NASAL ×2 (08:27→20:14)
--- NOTE | 2023-07-07 10:19 | PM.IMPN ---
Progress Note: A&P Assessment and Plan (1) Symptomatic anemia: Code(s): D64.9 - Anemia, unspecified <Nighat PhucAngelica Carcamo, Student - Last Filed: 07/07/23 12:09> Status: Acute <Nighat Coronel Carlos Alberto, Student - Last Filed: 07/07/23 12:09> Assessment and Plan: The combination of chronic gastrointestinal symptoms, iron deficiency despite iron replacement, and vitamin B12 deficiency suggest the possibility spramalia. Robil over his known to cause leukopenia and may have played a role in marrow suppression. No evidence for acute gastrointestinal blood loss. Esophagitis and gastritis may contribute to chronic GI blood loss, stool for occult blood pending. 07/04 transferred from IMU to medical floor as Hgb 7.2 after 2 U PRBC. Monitor h/h Hgb today 8.2, stable GI consulted, EGD today (07/06) <Nighat PhucAngelica Carcamo, Student - Last Filed: 07/07/23 12:09> (2) JEANNIE (iron deficiency anemia): Qualifiers: Iron deficiency anemia type: chronic blood loss Qualified Code(s): D50.0 - Iron deficiency anemia secondary to blood loss (chronic) <Nighat PhucAngelica Carcamo, Student - Last Filed: 07/07/23 12:09> Code(s): D50.9 - Iron deficiency anemia, unspecified <Nighat PhucAngelica Carcamo, Student - Last Filed: 07/07/23 12:09> Status: Acute <Nighat Carcamo, Student - Last Filed: 07/07/23 12:09> Assessment and Plan: Iron replacement IV and p.o. <Nighat Carcamo, Student - Last Filed: 07/07/23 12:09> (3) Influenza A: Code(s): J10.1 - Influenza due to other identified influenza virus with other respiratory manifestations <Nighat Carcamo, Student - Last Filed: 07/07/23 12:09> Status: Acute <Nighat Carcamo, Student - Last Filed: 07/07/23 12:09> Assessment and Plan: Continue Tamiflu 75 mg twice daily (end-date: 07/09) Chest X-ray showed mild atelectasis on the left upper lobe and a moderate sized hiatal hernia <Nighat Carcamo, Student - Last Filed: 07/07/23 12:09> (4) Vitamin B12 deficiency: Code(s): E53.8 - Deficiency of other specified B group vitamins <Nighat Carcamo, Student - Last Filed: 07/07/23 12:09> Status: Acute <Nighat Carcamo, Student - Last Filed: 07/07/23 12:09> Assessment and Plan: Continue p.o. B12 replacement with folic acid <Nighat Carcamo, Student - Last Filed: 07/07/23 12:09> (5) Chronic erosive gastritis: Code(s): K29.40 - Chronic atrophic gastritis without bleeding <Nighat Carcamo, Student - Last Filed: 07/07/23 12:09> Status: Acute <Nighat Rosalesmaxx, Student - Last Filed: 07/07/23 12:09> Assessment and Plan: Continue Pantoprazole QAM <Nighat Rosalesmaxx, Student - Last Filed: 07/07/23 12:09> (6) Esophagitis: Code(s): K20.90 - Esophagitis, unspecified without bleeding <Nighat Rosalesmaxx, Student - Last Filed: 07/07/23 12:09> Status: Acute <Nighat Rosaleserenarabella, Student - Last Filed: 07/07/23 12:09> Assessment and Plan: Continue pantoprazole QAM <Nighat Coronel Carlos Alberto, Student - Last Filed: 07/07/23 12:09> Subjective Date/time seen: 07/07/23 10:19 <Nighat Coronel Carlos Alberto, Student - Last Filed: 07/07/23 12:09> Interval history: Patient initially presented for cough, congestion, shortness of breath, abdominal cramping, diarrhea, and weakness. She tested positive for Flu A and was started on Tamiflu. She was also found to have a hemoglobin of 4.9. After 2 units of blood, she has been feeling significantly better. Hemoglobin has been stable. Consulted GI and they plan to perform an endoscopy. Patient is laying comfortably in bed this morning. Reports she still has mild lower abdominal cramping and feels queasy today. Denies shortness of breath or chest pain. She has been NPO for an EGD today with GI. <Nighat Carcamo, Student - Last Filed: 07/07/23 12:09> Patient ini
[2023-07-07] MEDS: LACTATED RINGERS 1,000 ML 150 ML IV CONT (14:46)
--- NOTE | 2023-07-07 15:14 | WPDANESEPPF ---
Anes - Initial Pre Proc Eval Procedure: Operation Date: 07/07/23 16:00 Proposed Procedures p Esophagogastroduodenoscopy & Colonoscopy - Ulsies Curran MD Date/Time: 07/07/23 15:14 Surgeon: Mckayla Cuevas MD Pre Op Diagnosis: Symptomati Anemia,Influenza A Patient Data Age: 63 Gender: F Height: 1.7 m Weight: 80 kg Last Vital Signs Temp 97.7 F 07/07/23 14:00 Pulse 61 07/07/23 14:45 Resp 20 07/07/23 14:45 BP 138/80 07/07/23 14:45 Pulse Ox 96 07/07/23 14:45 O2 Del Method Room Air 07/07/23 14:45 Allergies Allergy/AdvReac Type Severity Reaction Status Date / Time No Known Allergies Allergy Unknown Verified 07/07/23 14:41 Home Medications Medication Instructions Recorded Confirmed Type azelastine 137 mcg (0.1 %) nasal 137 mcg (0.137 mL) intranasal Q12H 07/03/23 07/05/23 Rx spray aerosol #30 mL fluticasone propionate 50 1 spray intranasal DAILY #16 grams 07/03/23 07/05/23 Rx mcg/actuation nasal spray,suspension nirmatrelvir 300 mg (150 mg See Rx Instructions PO .COMPLEX 07/03/23 07/05/23 Rx x2)-ritonavir 100 mg tablet,dose #30 tabs pack (Paxlovid) Laboratory Tests 07/07/23 06:51 WBC 4.4 L K/mm3 (4.5-10.0) RBC 4.37 M/mm3 (4.2-5.4) Hgb 8.2 L g/dL (12.0-15.0) Hct 30.7 L % (37.0-47.0) MCV 70.3 L fl (80-100) MCH 18.8 L pg (26-34) MCHC 26.7 L g/dl (32-36) RDW 30.5 H % (11.5-14.5) Plt Count 169 k/mm3 (150-375) MPV TNP % Immature Plt Fraction 11.1 % (0.9-11.2) Sodium 141 mmol/L (137-145) Potassium 3.6 mmol/L (3.4-5.0) Chloride 108 H mmol/L (98-107) Carbon Dioxide 26 mmol/L (22-30) Anion Gap 7 L mmol/L (8-16) BUN 9 mg/dL (7-17) Creatinine 0.70 mg/dL (0.7-1.0) Estim Creat Clear Calc 71 ml/min Estimated GFR > 60 (59 - ) Glucose 96 mg/dL (65-110) Calcium 8.7 mg/dL (8.4-10.2) Patient hx anesthesia problems: none Family hx anesthesia problems: none Results Review: All pre-operative results and documents have been reviewed as part of the pre-operative evaluation. [facility] Past Medical History Medical History (Updated 07/06/23 @ 09:08 by Shanti Toledo, DARIN) Abdominal aortic aneurysm (AAA) 3.0 cm to 5.0 cm in diameter in female Acute blood loss anemia Acute deep vein thrombosis (DVT) of right lower extremity 2019 Anemia Bilateral calf pain Colon polyp tubular adenoma Dizziness Fatigue Gastric ulcer, acute with hemorrhage 2019 with positive Nasrin-test for H.pylori Generalized abdominal pain GERD with esophagitis GI (gastrointestinal hemorrhage) Hx of adenomatous colonic polyps Vitamin B12 deficiency Surgical History Surgical History (Updated 07/05/23 @ 09:01 by Vaibhav Le MD) H/O total hysterectomy History of 3 sections History of colonoscopy with polypectomy 2018 History of esophagogastroduodenoscopy (EGD) 2019-esophagitis, gastric ulcer, positive Nasrin-test for H.pylori. 2022-esophagitis, schatzki ring, gastritis Family History Family History Father Family history of glaucoma, Onset Age: 0 Gout Cancer of kidney Kidney failure Skin cancer Mother Family history of cardiovascular disease Gout Diabetes mellitus Hypertension Social History Social History Social History: The patient is lives with her . 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 She desires to have her as a durable power deputy commonwealth's attorney for healthcare. She desires to be a full code. She is a lifelong nonsmoker. She does not use any alcohol marijuana or illicit drugs. Smoking status: Never smoker Second hand tobacco smoke exposure: No Alcohol intake: never Substance use: never Substance use type: does not use Do You Feel Safe in your Home?: Yes
--- NOTE | 2023-07-07 16:35 | SUR.OPER ---
EGD COMPLETED AT 1631, COLONOSCOPY STARTED AT 1636
[2023-07-07] MEDS: CYANOCOBALAMIN 1,000 MCG TABLET 1000 MCG PO (17:39)
[2023-07-07] MEDS: FERROUS SULFATE 325 MG TABLET DR PO (17:39)
[2023-07-07] MEDS: FOLIC ACID 1 MG TABLET PO (17:40)
[2023-07-08 05:44] VITALS: BP 132/67; PULSE 56; RESP 14; TEMP 36.3; O2SAT 94
[2023-07-08 06:36] LABS: Hematocrit 30.2 % (37.0-47.0); Hemoglobin 8.1 g/dL (12.0-15.0); Immature Platelet Fraction Pct 10.3 % (0.9-11.2); Mean Corpuscular HGB Conc 26.8 g/dl (32-36); Mean Corpuscular Hemoglobin 19.1 pg (26-34); Mean Corpuscular Volume 71.4 fl (80-100); Platelet Count Result 188 k/mm3 (150-375); Red Blood Count 4.23 M/mm3 (4.2-5.4); Red Cell Distribution Width 31.8 % (11.5-14.5); White Blood Count 4.8 K/mm3 (4.5-10.0)
[2023-07-08 06:48] LABS: Anion Gap 4 mmol/L (8-16); Blood Urea Nitrogen 10 mg/dL (7-17); Calcium 8.3 mg/dL (8.4-10.2); Carbon Dioxide 28 mmol/L (22-30); Chloride 108 mmol/L (98-107); Estimated CRCL calculation 71 ml/min; Estimated Glomerular Filt Rate > 60; Glucose 92 mg/dL (65-110); Potassium 3.7 mmol/L (3.4-5.0); Sodium 140 mmol/L (137-145)
[2023-07-08 08:00] VITALS: PULSE 67; O2SAT 95
--- NOTE | 2023-07-08 08:53 | WPDANESPN ---
Anes - Prog Note Post-Op Date/Time: 07/08/23 08:53 Vital Signs: Last Vital Signs Temp 36.3 C L 07/08/23 05:44 Pulse 56 L 07/08/23 05:44 Resp 14 07/08/23 05:44 BP 132/67 07/08/23 05:44 Pulse Ox 94 07/08/23 05:44 O2 Del Method Room Air 07/07/23 20:00 Pain Score (VAS): 2 - a little discomfort in her throat this AM I/O: Intake & Output 07/07/23 07/08/23 07/08/23 23:59 07:59 15:59 Intake Total 650 750 Balance 650 750 Laboratory Tests 07/08/23 06:22 07/08/23 06:22 07/08/23 06:22 WBC 4.8 RBC 4.23 Hgb 8.1 L Hct 30.2 L MCV 71.4 L MCH 19.1 L MCHC 26.8 L RDW 31.8 H Plt Count 188 MPV TNP % Immature Plt Fraction 10.3 Sodium 140 Potassium 3.7 Chloride 108 H Carbon Dioxide 28 Anion Gap 4 L BUN 10 Creatinine 0.70 Estim Creat Clear Calc 71 Estimated GFR > 60 Glucose 92 Calcium 8.3 L Patient Feedback: Patient satisfied with anesthetic care.
[2023-07-08] MEDS: CYANOCOBALAMIN 1,000 MCG TABLET 1000 MCG PO (09:03)
[2023-07-08] MEDS: PANTOPRAZOLE 40 MG TABLET PO (09:03)
[2023-07-08] MEDS: FOLIC ACID 1 MG TABLET PO (09:03)
[2023-07-08] MEDS: OSELTAMIVIR PHOSPHATE 75 MG CAPSULE PO (09:03)
[2023-07-08] MEDS: FERROUS SULFATE 325 MG TABLET DR PO (09:03)
[2023-07-08] MEDS: FLUTICASONE PROPIONATE 0.05% NA SPR 16 GM BTL (*BKC) 1 SPRAY NASAL (09:04)
[2023-07-08] MEDS: AZELASTINE HCL NASAL 0.1% 137 MCG/SPR 30 ML BTL 1 SPRAY NASAL (09:04)
--- NOTE | 2023-07-08 11:40 | PM.DS ---
DS: Admitting Diagnosis Discharge Date 07/08/2023 Admitting Diagnosis ?Cough congestion wheezing shortness of breath DS: Discharge Diagnosis Discharge Diagnosis (1) Symptomatic anemia: Code(s): D64.9 - Anemia, unspecified Status: Acute Assessment and Plan: The combination of chronic gastrointestinal symptoms, iron deficiency despite iron replacement, and vitamin B12 deficiency suggest the possibility sprue. Paxil over his known to cause leukopenia and may have played a role in marrow suppression. No evidence for acute gastrointestinal blood loss. Esophagitis and gastritis may contribute to chronic GI blood loss, stool for occult blood pending. 07/04 transferred from IMU to medical floor as Hgb 7.2 after 2 U PRBC. Monitor h/h Hgb today 8.2, stable GI consulted, EGD today (07/06) pt had egd showing hiatial hernia and gastritis pt ok to dc today (2) JEANNIE (iron deficiency anemia): Qualifiers: Iron deficiency anemia type: chronic blood loss Qualified Code(s): D50.0 - Iron deficiency anemia secondary to blood loss (chronic) Code(s): D50.9 - Iron deficiency anemia, unspecified Status: Acute Assessment and Plan: Iron replacement IV and p.o. (3) Influenza A: Code(s): J10.1 - Influenza due to other identified influenza virus with other respiratory manifestations Status: Acute Assessment and Plan: Continue Tamiflu 75 mg twice daily (end-date: 07/09) Chest X-ray showed mild atelectasis on the left upper lobe and a moderate sized hiatal hernia (4) Vitamin B12 deficiency: Code(s): E53.8 - Deficiency of other specified B group vitamins Status: Acute Assessment and Plan: Continue p.o. B12 replacement with folic acid (5) Chronic erosive gastritis: Code(s): K29.40 - Chronic atrophic gastritis without bleeding Status: Acute Assessment and Plan: Continue Pantoprazole QAM (6) Esophagitis: Code(s): K20.90 - Esophagitis, unspecified without bleeding Status: Acute Assessment and Plan: Continue pantoprazole QAM DS: Summary Hospital Course Hospital Course: Patient initially presented for cough, congestion, shortness of breath, abdominal cramping, diarrhea, and weakness. She tested positive for Flu A and was started on Tamiflu. She was also found to have a hemoglobin of 4.9. After 2 units of blood, she has been feeling significantly better. Hemoglobin has been stable. Consulted GI and they plan to perform an endoscopy. Patient is laying comfortably in bed this morning. Reports she still has mild lower abdominal cramping and feels queasy today. Denies shortness of breath or chest pain. She has been NPO for an EGD today with GI.??<Nighat FriendAngelica Carcamo, Student - Last Filed: 07/07/23 12:09> ? ? ? Patient initially presented for cough, congestion, shortness of breath, abdominal cramping, diarrhea, and weakness. She tested positive for Flu A and was started on Tamiflu. She was also found to have a hemoglobin of 4.9. After 2 units of blood, she has been feeling significantly better. Hemoglobin has been stable. Consulted GI and they plan to perform an endoscopy. Patient is laying comfortably in bed this morning. Reports she still has mild lower abdominal cramping and feels queasy today. Denies shortness of breath or chest pain. She has been NPO for an EGD today with GI. Pt had egd 07/06 started back on diet the next day ok to dc 07/07. Time Spent with Patient Time attestation: Total time spent providing and/or coordinating discharge services:50 minutes on day of dc Exam Narrative: General: In no acute distress, well nourished Head: atraumatic, no encephalopathy Eyes: EOMI, PERRLA, sclera clear ENT: moist mucous membranes, nasal passages clear Neck: supple, no JVD, no adenopathy, trachea midline Cardiac: Normal S1 and S2. No murmur, gallops or friction rubs, peripheral pulses intact. Respiratory: Lungs course with
[2023-07-08 14:00] VITALS: BP 107/83; PULSE 66; RESP 18; TEMP 36.1; O2SAT 97
[2023-07-09 07:38] LABS: Haptoglobin 279 mg/dL (43-212)
[2023-07-10 09:29] LABS: Immunoglobulin A 217 mg/dL (70-320); TTG IGA AB <1.0 U/mL (<15.0)
== END 2023-07-08 14:35 | disposition home or self-care (01) ==
LOC: ANHED 07-05 03:40 → ANHIMU 07-05 05:50 → ANH3MEDSUR 07-06 12:39 → ANHIMU 07-09 09:40
PROVIDERS: Emergency Medicine; Internal Medicine; Internal Medicine Gastroenterology; Admitting Provider General Practice; Emergency Provider Emergency Medicine; PCP Family Medicine; Visit Provider Family Medicine
PROC: 0DJ08ZZ Inspection of Upper Intestinal Tract, Via Natural or Artificial Opening Endoscopic (ICD-10-PCS; CPT 43235; principal; 2023-07-07 16:00)
DX: K29.40 Chronic atrophic gastritis without bleeding (principal); D50.9 Iron deficiency anemia, unspecified; D62 Acute posthemorrhagic anemia; K44.9 Diaphragmatic hernia without obstruction or gangrene; K64.8 Other hemorrhoids; K21.00 Gastro-esophageal reflux disease with esophagitis, without bleeding; J10.1 Influenza due to other identified influenza virus with other respiratory manifestations; K40.90 Unilateral inguinal hernia, without obstruction or gangrene, not specified as recurrent; Z20.822 Contact with and (suspected) exposure to COVID-19; I71.40 Abdominal aortic aneurysm, without rupture, unspecified; E53.8 Deficiency of other specified B group vitamins; I49.9 Cardiac arrhythmia, unspecified; Z86.718 Personal history of other venous thrombosis and embolism; J98.11 Atelectasis; Z86.010 Personal history of colon polyps; Z79.899 Other long term (current) drug therapy
CPT/HCPCS: 43239; 45378; 36415; 36430; 71046; 74177; 80048; 80053; 80076; 81001; 82607; 82728; 82746; 82784; 83010; 83540; 83550; 83605; 83615; 83690; 83735; 84145; 84443; 84484; 85014; 85018; 85025; 85027; 85046; 85055; 85610; 85730; 86364; 86850; 86900; 86901; 86923; 87637; 88305; 93005; 94640; 96361; 96365; 96366; 96374; 96375; 99285; A9270; G0378; J1756; J2270; J2405; J2704; J7030; J7050; J7120; P9016; Q9967

== ENCOUNTER 2023-11-10 13:42 | Outpatient (CLI) | payer OTHER, SELFPAY ==
[2023-11-10 14:11] LABS: Basophils Percent Auto 0.5 % (0.2-1.2); Eosinophils Absolute Auto 0.2 K/mm3 (0-0.3); Eosinophils Percent Auto 3.7 % (0-4.4); Hematocrit 30.3 % (37.0-47.0); Hemoglobin 8.5 g/dL (12.0-15.0); Immature Granulocyte Absolute 0.01 K/mm3 (0.00-0.031); Immature Granulocyte Percent A 0.2 % (0-0.5); Lymphocytes Absolute Auto 1.69 K/mm3 (0.9-3.2); Lymphocytes Percent Auto 30.1 % (18.3-44.2); Mean Corpuscular HGB Conc 28.1 g/dl (32-36); Mean Corpuscular Hemoglobin 23.2 pg (26-34); Mean Corpuscular Volume 82.8 fl (80-100); Mean Platelet Volume 12.4 fl (7.4-10.4); Monocytes Absolute Auto 0.4 K/mm3 (0.1-0.6); Monocytes Percent Auto 6.6 % (2.6-8.5); Neutrophils Absolute Auto 3.3 K/mm3 (1.3-6.7); Neutrophils Percent Auto 58.9 % (45.5-73.1); Nucleated Red Blood Cells Perc 0.4 % (0.0-0.2); Platelet Count Result 259 k/mm3 (150-375); Red Blood Count 3.66 M/mm3 (4.2-5.4); Red Cell Distribution Width 16.2 % (11.5-14.5); White Blood Count 5.6 K/mm3 (4.5-10.0)
[2023-11-10 14:27] LABS: Anisocytosis 1+; Hypochromasia 1+; Platelet Estimate Adequate (Adequate)
[2023-11-10 14:28] LABS: Ovalocytes 1+; Schistocytes None Seen; Stomatocytes 1+; Target Cells 1+
[2023-11-10 15:03] LABS: Iron 32 ug/dL (37-170)
[2023-11-10 15:13] LABS: Percent Iron Saturation 7 % (20-50)
[2023-11-10 15:38] LABS: Ferritin 4.58 ng/mL (11.1-264)
== END 2023-11-10 13:43 | disposition home or self-care (01) ==
LOC: ANHLAB 13:44
PROVIDERS: PCP Family Medicine; Visit Provider Physician Assistant
DX: D64.9 Anemia, unspecified (principal); E53.8 Deficiency of other specified B group vitamins; K29.40 Chronic atrophic gastritis without bleeding
CPT/HCPCS: 36415; 82607; 82728; 83540; 83550; 85025

== ENCOUNTER 2024-01-25 14:50 | Outpatient (CLI) | payer OTHER, SELFPAY ==
[2024-01-25 15:37] LABS: Basophils Percent Auto 0.5 % (0.2-1.2); Eosinophils Absolute Auto 0.2 K/mm3 (0-0.3); Eosinophils Percent Auto 2.3 % (0-4.4); Hematocrit 25.4 % (37.0-47.0); Immature Granulocyte Absolute 0.02 K/mm3 (0.00-0.031); Immature Granulocyte Percent A 0.3 % (0-0.5); Immature Platelet Fraction Pct 7.4 % (0.9-11.2); Lymphocytes Absolute Auto 1.59 K/mm3 (0.9-3.2); Lymphocytes Percent Auto 24.3 % (18.3-44.2); Mean Corpuscular HGB Conc 24.8 g/dl (32-36); Mean Corpuscular Hemoglobin 16.3 pg (26-34); Mean Corpuscular Volume 65.8 fl (80-100); Monocytes Absolute Auto 0.5 K/mm3 (0.1-0.6); Monocytes Percent Auto 8.1 % (2.6-8.5); Neutrophils Absolute Auto 4.2 K/mm3 (1.3-6.7); Neutrophils Percent Auto 64.5 % (45.5-73.1); Nucleated Red Blood Cells Perc 0.6 % (0.0-0.2); Platelet Count Result 330 k/mm3 (150-375); Red Blood Count 3.86 M/mm3 (4.2-5.4); Red Cell Distribution Width 20.5 % (11.5-14.5); White Blood Count 6.6 K/mm3 (4.5-10.0)
[2024-01-25 15:47] LABS: Alanine Aminotransferase 11 U/L (6-35); Albumin Level 4.3 g/dL (3.5-5.1); Alkaline Phosphatase 49 U/L (38-126); Anion Gap 9 mmol/L (4-12); Aspartate Amino Transferase 29 U/L (14-36); Blood Urea Nitrogen 21 mg/dL (7-17); Calcium 8.8 mg/dL (8.4-10.2); Carbon Dioxide 26 mmol/L (22-30); Chloride 101 mmol/L (98-107); Estimated Glomerular Filt Rate > 60; Glucose 97 mg/dL (65-110); Hemoglobin 6.3 g/dL (12.0-15.0); Potassium 3.9 mmol/L (3.4-5.0); Sodium 136 mmol/L (137-145)
[2024-01-25 16:10] LABS: Iron 16 ug/dL (37-170)
[2024-01-25 16:19] LABS: Percent Iron Saturation 3 % (20-50)
[2024-01-25 16:46] LABS: Ferritin 5.07 ng/mL (11.1-264)
[2024-01-25 17:25] LABS: Schistocytes None Seen
[2024-01-25 17:26] LABS: Platelet Estimate Adequate (Adequate)
[2024-01-25 17:27] LABS: Anisocytosis 3+; Hypochromasia 1+
== END 2024-01-25 14:51 | disposition home or self-care (01) ==
LOC: ANHLAB 14:52
PROVIDERS: PCP Family Medicine; Visit Provider Physician Assistant
DX: D64.9 Anemia, unspecified (principal); E53.8 Deficiency of other specified B group vitamins; K29.40 Chronic atrophic gastritis without bleeding
CPT/HCPCS: 36415; 80053; 82607; 82728; 83540; 83550; 85025; 85055

== ENCOUNTER 2024-01-27 07:28 | Outpatient (RCR) | payer OTHER, SELFPAY ==
[2024-01-26 16:30] LABS: Hematocrit 25.4 % (37.0-47.0)
[2024-01-26 16:35] LABS: Hemoglobin 6.1 g/dL (12.0-15.0)
[2024-01-27] VITALS (10 sets, daily range): BP systolic 94–128; BP diastolic 55–72; PULSE 61–79; RESP 14–16; TEMP 36.4–37.4; O2SAT 99–100
[2024-01-27] MEDS: ACETAMINOPHEN 325 MG TABLET 650 MG PO (08:39)
[2024-01-27] MEDS: FAMOTIDINE 20 MG TABLET 40 MG PO (08:41)
[2024-01-27] MEDS: SODIUM CHLORIDE 0.9% IV 250 ML 30 ML IV CONT (08:41)
[2024-01-27] MEDS: diphenhydrAMINE HCl CAP 25 MG CAPSULE 50 MG PO (08:41)
[2024-01-27] MEDS: FUROSEMIDE INJ 40 MG/4 ML VIAL 20 MG IV PUSH (11:51)
== END 2024-04-26 23:59 | disposition home or self-care (01) ==
LOC: ANHCPCTRAN 07:28
PROVIDERS: PCP Family Medicine; Visit Provider Physician Assistant
DX: D64.9 Anemia, unspecified (principal)
CPT/HCPCS: 36415; 36430; 85014; 85018; 86850; 86900; 86901; 86923; 96374; A9270; J1940; J7050; P9016

== ENCOUNTER 2024-02-03 13:08 | Outpatient (CLI) | payer OTHER, SELFPAY ==
[2024-02-03 13:45] LABS: Basophils Percent Auto 0.7 % (0.2-1.2); Eosinophils Absolute Auto 0.2 K/mm3 (0-0.3); Eosinophils Percent Auto 3.5 % (0-4.4); Hematocrit 30.3 % (37.0-47.0); Hemoglobin 8.1 g/dL (12.0-15.0); Immature Granulocyte Absolute 0.02 K/mm3 (0.00-0.031); Immature Granulocyte Percent A 0.4 % (0-0.5); Immature Platelet Fraction Pct 6.2 % (0.9-11.2); Lymphocytes Percent Auto 31.9 % (18.3-44.2); Mean Corpuscular HGB Conc 26.7 g/dl (32-36); Mean Corpuscular Volume 71.1 fl (80-100); Mean Platelet Volume 10.6 fl (7.4-10.4); Monocytes Absolute Auto 0.4 K/mm3 (0.1-0.6); Monocytes Percent Auto 6.9 % (2.6-8.5); Neutrophils Absolute Auto 3.2 K/mm3 (1.3-6.7); Neutrophils Percent Auto 56.6 % (45.5-73.1); Platelet Count Result 282 k/mm3 (150-375); Red Blood Count 4.26 M/mm3 (4.2-5.4); Red Cell Distribution Width 26.4 % (11.5-14.5); White Blood Count 5.7 K/mm3 (4.5-10.0)
[2024-02-03 14:26] LABS: Hypochromasia 1+; Platelet Estimate Adequate (Adequate); Schistocytes None Seen
[2024-02-03 14:27] LABS: Anisocytosis 1+
[2024-02-03 16:26] LABS: Iron 33 ug/dL (37-170)
[2024-02-03 16:35] LABS: Percent Iron Saturation 7 % (20-50)
[2024-02-03 16:39] LABS: Alanine Aminotransferase 15 U/L (6-35); Albumin Level 4.1 g/dL (3.5-5.1); Alkaline Phosphatase 49 U/L (38-126); Anion Gap 7 mmol/L (4-12); Aspartate Amino Transferase 41 U/L (14-36); Blood Urea Nitrogen 18 mg/dL (7-17); Calcium 8.6 mg/dL (8.4-10.2); Carbon Dioxide 25 mmol/L (22-30); Chloride 105 mmol/L (98-107); Estimated Glomerular Filt Rate > 60; Glucose 87 mg/dL (65-110); Potassium 4.1 mmol/L (3.4-5.0); Sodium 137 mmol/L (137-145)
[2024-02-03 17:04] LABS: Ferritin 5.28 ng/mL (11.1-264)
[2024-02-03 17:45] LABS: Folic Acid 17.1 ng/mL (2.76->20)
== END 2024-02-03 13:09 | disposition home or self-care (01) ==
LOC: ANHLAB 13:10
PROVIDERS: PCP Family Medicine; Visit Provider Internal Medicine Hematology & Oncology
DX: D64.9 Anemia, unspecified (principal)
CPT/HCPCS: 36415; 80053; 82607; 82728; 82746; 83540; 83550; 85025; 85055

== ENCOUNTER 2024-02-10 07:53 | Outpatient (CLI) | payer OTHER, SELFPAY ==
--- NOTE | ~2024-02-10 | MMUS_ITS ---
EXAMINATION: MM diagnostic gus LT w stef, US breast LT limited HISTORY: Six-month follow-up of probably benign left breast mass TECHNIQUE: 3-D tomosynthesis images of the left breast were performed and synthetic 2-D images were g enerated. CAD analysis was submitted and interpreted. High resolution limited left breast ultrasound was performed. COMPARISON: 06/06/2022, 05/21/2022 BREAST PARENCHYMAL COMPOSITION:Not Dense. There are scattered areas of fibroglandular density. FINDINGS: MAMMOGRAPHIC FINDINGS: Parenchymal pattern of the right breast is unchanged. No new mass or distortion seen. No suspicious m icrocalcification. ULTRASOUND: At the 4:00 position left breast, 8 cm from the nipple, there is a 5 x 4 x 4 mm hypoechoic circumscri bed wider than tall mass. This probably causes prior lesion, mildly decreased in size. IMPRESSION: 5 x 4 x 4 mm hypoechoic mass at the 4:00 position left breast, decreased in size from prior exam. Th is is compatible with a benign lesion. No evidence of malignancy. BI-RADS Category 2: Benign finding(s). Reviewed, dictated and finalized at location M. IMPRESSION: 5 x 4 x 4 mm hypoechoic mass at the 4:00 position left breast, decreased in si ze from prior exam. This is compatible with a benign lesion. No evidence of malignancy. BI-RADS Category 2: Benign finding(s).
== END 2024-02-10 07:54 | disposition home or self-care (01) ==
PROVIDERS: PCP Family Medicine; Visit Provider Physician Assistant
DX: N63.23 Unspecified lump in the left breast, lower outer quadrant (principal); R92.8 Other abnormal and inconclusive findings on diagnostic imaging of breast
CPT/HCPCS: 76642; 77061; 77065; G0279

== ENCOUNTER 2024-02-20 07:32 | Outpatient (CLI) | payer OTHER, SELFPAY ==
--- NOTE | ~2024-02-20 | US_ITS ---
EXAMINATION: US aorta DATE: 02/20/2024 08:06 CDT INDICATION: History of abdominal aortic aneurysm TECHNIQUE: Grayscale, color Doppler, and pulsed Doppler images of the aorta and common iliac arteries were obtained. COMPARISON: CT dated 02/14/2019. FINDINGS: The proximal aorta measures 2.4 cm greatest sagittal dimension. The mid aorta measures 1.8 cm greates t sagittal dimension. The distal aorta measures 1.8 cm greatest sagittal dimension. The right common internal iliac artery measures 1 cm. The left common iliac artery measures 1 cm. IMPRESSION: 1. Normal caliber aorta without evidence for aneurysm. Reviewed, dictated and finalized at location B.
== END 2024-02-20 07:33 | disposition home or self-care (01) ==
LOC: ANHIMG 07:33
PROVIDERS: PCP Family Medicine; Visit Provider Physician Assistant
DX: I71.40 Abdominal aortic aneurysm, without rupture, unspecified (principal)
CPT/HCPCS: 76775

== ENCOUNTER 2024-06-16 07:22 | Outpatient (RCR) | payer OTHER, SELFPAY ==
[2024-06-16] VITALS (11 sets, daily range): BP systolic 110–121; BP diastolic 61–76; PULSE 67–76; RESP 18; TEMP 36.9–37.4; O2SAT 97–100
[2024-06-16 07:47] LABS: Hematocrit 27.5 % (37.0-47.0)
[2024-06-16] MEDS: ACETAMINOPHEN 325 MG TABLET 650 MG PO (07:49)
[2024-06-16] MEDS: SODIUM CHLORIDE 0.9% IV 250 ML 30 ML IV CONT (07:50)
[2024-06-16] MEDS: diphenhydrAMINE HCl CAP 25 MG CAPSULE PO (07:54)
[2024-06-16] MEDS: FUROSEMIDE INJ 40 MG/4 ML VIAL 20 MG IV PUSH (10:54)
== END 2024-09-14 23:59 | disposition home or self-care (01) ==
LOC: ANHCPCTRAN 07:22
PROVIDERS: PCP Family Medicine; Visit Provider Internal Medicine Hematology & Oncology
DX: D64.9 Anemia, unspecified (principal)
CPT/HCPCS: 36415; 36430; 85014; 85018; 86850; 86900; 86901; 86923; A9270; J1940; J7050; P9016

== ENCOUNTER 2024-09-05 13:27 | Outpatient (CLI) | payer OTHER, SELFPAY ==
--- NOTE | ~2024-09-05 | DEXA_ITS ---
Bone Density Report Name: HERMELINDA JOHNSON Age: 64 Sex: Female Ethnicity: White Date of : 1960 Indication: postmenopausal; screening for osteoporosis; parental hip fracture; height loss; inflammatory bowel disease; prior fracture; hysterectomy; Referring Provider: FRANKO FOSS Study: Bone densitometry was performed. Exam Date: September 05, 2024 Accession number: [id number] Bone Density: Region BMD T-score Z-score Classification AP Spine(L1-L4) 0.844 -1.8 -0.3 Osteopenia Femoral Neck (Left) 0.682 -1.5 -0.1 Osteopenia Total Hip (Left) 0.723 -1.8 -0.7 Osteopenia World Health Organization criteria for BMD impression classify patients as: Normal (T-score at or above -1.0), Osteopenia (T-score between -1.0 and -2.5), or Osteoporosis (T-score at or below -2.5). 10-year Fracture Risk: FRAX not reported because: Prior hip or vertebral fracture Clinical Information Provided by Patient: Have had a previous hip or vertebral fracture Has had a low trauma fracture Parent has had a hip fracture Has used the following medications: Vitamin D, Calcium Has the following medical conditions: Inflammatory bowel diseases, Hysterectomy Patient maximum height was 67.0 Menopause Age: 52 Drinks caffeinated beverages Onset of menses at age 17 Number of children 3 Impression: The patient has low bone mass, based on the Total Spine T-score. The patient has risk factors, including: parental hip fracture, previous fracture. Discussion: INCREASED RISK OF FRACTURE DUE TO HISTORY OF FRACTURE. The patient's previous fracture puts the patient at high risk of a future fracture. In untreated patients, the risk of osteoporotic fracture increases approximately two-fold for each 1.0 SD decrease in T-score. Low bone density is not the only risk factor for fracture; also consider factors such as patient's age, frailty or poor health, risk of falling, risk of injury, previous osteoporotic fracture, family history of osteoporosis, cigarette smoking, low body weight, etc. Not everyone with a low trauma fracture has osteoporosis; osteomalacia and other metabolic bone disorders should also be considered. Patients who have osteoporosis should be evaluated for specific diseases and conditions (secondary causes) that may cause or contribute to bone loss and fracture risk. National Osteoporosis Foundation (NOF) recommends pharmacologic intervention for patients with a prior hip or vertebral fracture regardless of BMD T-score. The patient should follow a healthful lifestyle (good nutrition with adequate calcium and vitamin D, and appropriate weight-bearing exercise). Follow-Up: Consider a repeat BMD and Vertebral Fracture Assessment (VFA) exam in 2 years or sooner if medically necessary, to reassess this patient's status. Reported by: JOSÉ MIGUEL on 09/05/2024 1:58:00 PM. Reviewed, dictated and finalized at location [facility]. [facility]
--- OUTSIDE RECORDS SUMMARY | 2024-09-05 14:06 | XMS_ITS | Data Portability ---
Author Organization [place] [facility], Main Office Address [address] [place] [address] Care Team Providers Care Mailroom Messenger Name Role Phone LILLIAM DECKER Primary Care Provider [phone] LILLIAM DECKER Referring Provider Assessment Encounter Date Assessment Date Assessment LastModified by Organization Details LastModified Time 07/13/2024 07/13/2024 64 yo patient presents today for follow up after right hip ORIF in [place] on 06/26/24. She fell out of bed while visiting there and fractured the hip. She lives here and needed a surgeon to follow up with. She states she is doing well overall, 3/10 pain. She takes one pain pill at night to help her sleep. She is ambulating with a walker and states she feels better each day. Review of systems per patient questionnaire. Imaging: Xray reviewed shows post surgical changes with intact hardware without movement. Proper alignment and fixation. Physical exam: Antalgic gait with a walker. Incision is clean dry and intact without signs and symptoms of infections. [place] were removed. No bruising or edema. Some tenderness to palpitation around since site. Able to perform gentle hip movements without pain. Sensation intact throughout. She is doing well post-operative ly. We discussed incisional care and when to call the office if there are changes. We will see her back in 4 weeks for recheck. She is in agreement with this plan. [email or web address] Not available 07/13/2024 15:32:44 Plan of Treatment Reminders Order Date Submit Date Provider Last Modified By Organization Details Last Modified Time Details Appointments None recorded. Lab None recorded. Referral None recorded. Procedures None recorded. Surgeries None recorded. Imaging XR, hip + pelvis, unilateral 2024 025 [email or web address] [facility], [address], [place], [address], 10:24:07 Medication Orders None recorded. Patient TargetsNo targets recorded. Patient InstructionsNo instructions recorded. Reason for Referral None Reported. Results Created Date Observation Date Name Description Value Unit Range Abnormal Flag Note LastModifiedBy Organization Detail LastModifiedTime 07/09/1906/26/2024 XR, hip + pelvi s, unila teral , 2 or 3 view No observ ation record ed. [email or web address] Not Available 11/2024 10:04:11 07/14/19 XR, hip + pelvi s, unila teral No observ ation record ed. [email or web address] [facility] [address], [place], [address], 07/13/2024 15:22:32 Result Notes None recorded. Problems Name Problem SNOMED Code Status Onset Date Resolution Date Notes Provider Name and Address Organization Details Recorded Time Pain of right hip joint [id number] Active [address] [facility] 15:04:09 Problem Notes None recorded. Procedures Surgical History Date Name Laterality Status Provider Name and Address Organization Details Recorded Time Hip surgery completed LIDIA Griffin [address] [facility] 08/02/2024 10:11:38 section completed Catherine Becker Koemei [facility] 07/13/2024 15:02:09 Imaging Results Imaging Date Name Status LastModified by Organiz ation Details LastModified Time 2024 XR, hip + pelvis, unilateral, 2 or 3 view completed [email or web address] Information not available 07/08/2024 10:04:11 07/13/2024 XR, hip + pelvis, unilateral completed [email or web address] [facility] [address], [place], [address], 07/13/2024 15:22:32 Procedure Notes None recorded. Medical Equipment None Reported. Allergies No known drug allergies Medications Name Sig Start Date Stop Date Status Note LastModified by Organization Details LastModified Time oxycodone- acetaminop hen 5 mg-325 mg tablet TAKE 1 TABLET BY MOUTH EVERY 6 HOURS NEEDED FOR SEVERE PAIN. USE FIRST active Not Available Not Available No t Available Xarelto 10 mg tablet TAKE 1 TABLET BY MOUTH EVERY DAY WITH DINNER active Not Available Not Available No t Available Vitals Date Recorded Body height Body mass index (BMI) Body weight Provider Name and Address Organization Details Last Updated DateTime 07/13/2024 170.18 cm 27.4 kg/m2 27784.66 g Catherine Becker [facility] 07/13/2024 14:58:39 Social History None recorded. Functional Status None recorded. Mental Status None recorded. Family History Relationship Description Onset Age of this Age Resolved Age Notes LastModified by Organization Details LastModified Time Mother Heart disease [email or web address] Not available 2024 15:00:46 Mother Hypertensive disorder [email or web address] Not available 2024 15:01:02 Notes:CANCER: father and bro ther Medical History Condition Response OSTEOPOROSIS Y BLOOD CLOTS Y ANEMIA/BLOOD DISORDER Y HAVE YOU BEEN HOSPITALIZED OR SEEN IN [facility] ER IN THE PAST YEAR ? Y Gynecological HistoryNo gynecological history recorded. Obstetrics History GPAL:G 0 P 0 0 0 0 Past Encounters Encounter ID Performer Location Encounter Start Date Encounter Closed Date Diagnosis/Indication Diagnosis SNOMED-CT Code Diagnosis ICD10 Code Diagnosis Note [id number] Eric Mcqueen MD [facility] [address] [place] [address] 07/13/2024 14:37:07 07/13/2024 15:34:45 Pain of right hip joint [id number] 09658 M25.551 Health Concerns Section Related Observation LastModified by Organization Detai ls LastModified Time None Recorded Concern Status LastModified by Organization Details LastModified Time None Recorded Advance Directives Directive None Recorded Payers Encounter Date Sequence Insurance Name Policy Number Policy Murphy Covered Member ID Murphy Member ID Guarantor Name 07/13/2024 1 [employer] - [employer] - CHOICE - NAP (POS II) [id number] Tim Osorio [id number] Jazmín Osorio OBGyn Episode No OBEpisode recorded.
--- OUTSIDE RECORDS SUMMARY | 2024-09-05 14:06 | XMS_ITS | Encounter Summary ---
Author Organization [facility] Address [address] [place], [place] [address] [address] Care Team Providers Care Retail Bakery Manager Name Role Phone Lashonda Austin MD Primary Care Provider [phone] Encounter Details Date Type Department Care Team (Late st Contact Info) Description 06/12/2020 Lab Requisition [facility] DermPath Lab [address] [place] [id number] Nino Fang MD [address] [place] [address] [id number] Social History Tobacco Use Types Packs/Day Years Used Date Smoking Tobacco: Never Comments Unknown Sex and Gender Information Value Date Recorded Sex Assigned at Not on file Legal Sex Female 11:21 AM LUBRICATION SERVICER Gender Identity Not on file Sexual Orientation Not on file documented as of this encounter Plan of Treatment Not on file documented as of this encounter Procedures Procedure Name Priority Date/Time Associated Diagnosis Comments DERMATOPATHOLOGY Routine 06/11/2020 12:0 0 AM LUBRICATION SERVICER documented in this encounter Results * DERMATOPATHOLOGY (06/11/2020 12:00 AM LUBRICATION SERVICER) Case Report Dermatopathology Report Case: [id number] Authorizing Provider: Nino Fang MD Collected: 06/11/2020 12:00 AM Ordering Location: [facility] DermPath Lab Received: 06/12/2020 07:23 AM Pathologist: Tina Goldsmith MD Specimens: A) - Skin, right chin B) - Skin, right post auric 12:56 PM LUBRICATION SERVICER DERMATOPATHOLOGY LABORATORY Final Diagnosis Specimen A. SKIN, right chin: INTRADERMAL MELANOCYTIC NEVUS (D22.39) Specimen B. SKIN, right post auric: INTRADERMAL MELANOCYTIC NEVUS (D22.4) 12:56 PM [facility] DERMATOPATHOLOGY LABORATORY Clinical History A-B: R/O irritated nevus. 12:56 PM [facility] DERMATOPATHOLOGY LABORATORY Gross Description Specimen A: Received is one formalin filled container labeled with the patients name and designated right chin. The specimen consists of a shave removal measuring [id number]. Jar 0. Specimen B: Received is one formalin filled container labeled with the patients name and designated right post auric. The specimen consists of a shave removal measuring [id number]. Jar 0. 12:56 PM [facility] DERMATOPATHOLOGY LABORATORY Microscopic Description Specimen A. SKIN, right chin: There are nests of cytologically bland melanocytes within the dermis that mature with depth. Specimen B. SKIN, right post auric: There are nests of cytologically bland melanocytes within the dermis that mature with depth. 12:56 PM [facility] DERMATOPATHOLOGY LABORATORY Disclaimer An external and internal positive and negative controls are appropriate for the histochemical, immunohistochemical and immunofluorescence stain(s) in this case (if any), except where stated explicitly. The performance characteristics of the stain(s) cited in this report were developed and its performance characteristic determined by the Dermatopathology Laboratory at [facility], directed by Dr. Tim Fabian. These tests need not be, and therefore are not, approved by the [place] Food and Drug Administration. The tests are used for clinical purposes. Billing Codes Specimen Charges Stain Charges 80222 14556 1 1 12:56 PM [facility] DERMATOPATHOLOGY LABORATORY Embedded Images 12:56 PM [facility] DERMATOPATHOLOGY LABORATORY Pathology/Cytology TISSUE SPECIMEN FROM SKIN / Unknown 06/11/2020 06/12/2020 7:23 AM LUBRICATION SERVICER Miscellaneous samples (specimen) TISSUE SPECIMEN FROM SKIN / Unknown 06/11/2020 06/12/2020 7:23 AM LUBRICATION SERVICER us Nino Fang MD LAB - PATHOLOGY/CYTOLOGY ORDERAB LES Final Result DERMATOPATHOLOGY LABORATORY [facility] - Department of Dermatology [facility] Medicine [address] [place] [address], [address] [place] [address], [facility] [phone] documented in this encounter Visit Diagnoses Not on filedocumented in this encounter Care Teams Retail Bakery Manager Relationship Specialty Start Date End Date Lashonda Austin MD [address] [place] [address] PCP - General 02/17/19 documented as of this encounter
--- OUTSIDE RECORDS SUMMARY | 2024-09-05 14:06 | XMS_ITS | Clinical Summary ---
Author Organization [facility] Mikel surekha Dillard Address [address] [place] [address] Care Team Providers Care Service Porter Name Role Phone Stanley Alvares MD Primary Care Provider [phone] Allergies No known active allergies Medications ferrous fumarate 89 mg (29 mg iron) Tablet Take 89 mg by mouth daily. Active cyanocobalamin (VITAMIN B-12) 1,000 mcg/mL SolutionIndica tions:Chronic anemia Inject 1 mL (1,000 mcg) by intramuscular injection every 14 days. 2 mL 3 5 Active Syringe with Needle, Disp, 1 mL 27 x 1/2 SyringeIndicat ions:Chronic anemia Use with B12 injection. 2 Each 3 5 Active ferrous sulfate 325 mg (65 mg iron) tabletIndicati ons:Chronic anemia Take 1 Tablet (325 mg) by mouth 2 times daily. 60 Tablet 1 5 Active Active Problems Problem Noted Date Diagnosed Date Iron deficiency anemia 01/08/2022 Encounters Date Type Department Care Team Description 08/02/2024 External Device Data STL ABSTRACTION Provider, Abstract 07/25/2024 Telephone [facility] Oncology and Hematology - [address] [place] [address] Dom Shannon MD labs for appt 07/20/2024 External Device Data STL ABSTRACTION Provider, Abstract 07/13/2024 External Device Data ST[facility] ABSTRACTION Provider, Abstract 07/12/2024 External Device Data ST[facility] ABSTRACTION Provider, Abstract 07/11/2024 External Device Data [facility] ABSTRACTION Provider, Abstract 07/09/2024 External Device Data ST[facility] ABSTRACTION Provider, Abstract 07/08/2024 External Device Data STL ABSTRACTION Provider, Abstract 07/06/2024 External Device Data STL ABSTRACTION Provider, Abstract 07/01/2024 Telephone [facility] Oncology [facility] [address] [place] [address] Dom Shannon MD inpatient 06/22/2024 External Device Data STL ABSTRACTION Provider, Abstract 06/17/2024 Telephone [facility] Oncology [facility] [address] Dom Shannon MD Iron Supplements 06/17/2024 Abstract [facility] [address] [place] [address] Dom Shannon MD 06/14/2024 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 Visit [facility] [address] [place] [address] Dom Shannon MD Chronic anemia (Primary Dx) 06/13/2024 Orders Only [facility] [address] Dom Shannon MD Chronic anemia (Primary Dx) 06/13/2024 Telephone [facility] [address] [place] [id number] Dom Shannon MD Lab Results from Last 3 Months Social History Tobacco Use Types Packs/Day Years Used Date Smoking Tobacco: Never Tobacco Cessation:Counseling Given: Not Answered Comments Unknown Sex and Gender Information Value Date Recorded Sex Assigned at Not on file Legal Sex Female 1:39 PM CDT Gender Identity Not on file Sexual Orientation Not on file Last Filed Vital Signs Vital Sign Reading Time Taken Comments Blood Pressure 111/65 06/14/2024 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 Pulse 76 06/14/2024 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 Temperature 36.6 C (97.8 F) 06/14/2024 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 Respiratory Rate 16 06/14/2024 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 Oxygen Saturation 95% 06/14/2024 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 Inhaled Oxygen Concentration - - Weight 84.4 kg (186 lb) 06/14/2024 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 Height 170.2 cm (5' 7 ) 01/21/2022 12:53 PM CDT Body Mass Index 29.13 01/21/2022 12:53 PM CDT Plan of Treatment Health Maintenance Due Date Last Done Comments Pre-Diabetes and Diabetes Screening 1962 DTAP/TDAP/TD VACCINES (1 - Tdap) 1981 HPV/Cotest (21-29) 1983 CERVICAL CANCER SCREENING 1992 HPV/Cotest (30-65) 1992 PAP SMEAR 1992 BREAST CANCER SCREENING 2002 COLORECTAL SCREENING 2007 Colorectal Cancer Screening 2007 FIT-DNA Q 3 years 2007 FIT/FOBT Q 1 year 2007 Flex Sig/CT Colonography Q 5 years 2007 ZOSTER VACCINE (1 of 2) 2012 INFLUENZA VACCINE (#1) 2023 02/21/2022 RSV VACCINE (60+ or ) (1 - 1-dose 75+ series) 2037 Insurance [employer] CHOICE POS II Care Teams Service Porter Relationship Specialty Start Date End Date Stanley Alvares MD [address] [facility] [address] [place] [address] PCP - General Family Practice 06/14/24
--- OUTSIDE RECORDS SUMMARY | 2024-09-05 14:06 | XMS_ITS | Clinical Summary ---
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 Gender Identity Not on file Sexual Orientation Not on file Plan of Treatment Health Maintenance Due Date Last Done Comments Hepatitis C Virus (HCV) Screening 1962 TdaP Immunization 1962 Pap Smear 1983 Cervical Cancer Screening (CCS) 1992 HPV/Cotest 1992 Colonoscopy 2007 Colorectal Cancer Screening 2007 Cologuard 2012 Immunochemical Fecal Occult Blood 2012 Mammogram 2012 Pneumococcal Immunization (5 0+ years) (1 of 1 - PCV) 2012 Zoster Immunization (1 of 2) 2012 Influenza Immunization (#1) 2024 SARS-COV-2 Immunization ( - 2023-25 season) 2024 Respiratory Syncytial Virus (RSV) Immunization (Adult) (1 - 1-dose 75+ series) 2037 Hepatitis B Immunization Aged Out No longer eligible based on patient's age to complete this topic Meningococcal Immunization (ACWY) Aged Out No longer eligible based on patient's age to complete this topic Pneumococcal Immunization Combined Aged Out No longer eligible based on patient's age to complete this topic Rotavirus Immunization Aged Out No lo nger eligible based on patient's age to complete this topic
--- OUTSIDE RECORDS SUMMARY | 2024-09-05 14:06 | XMS_ITS | Continuity of Care Document ---
Author Organization [facility]. If a dditional information is needed, contact Health Information Management at [phone] [address] [place] [address] Phone Care Team Providers Care Switchboard Wire Worker Helper Name Role Phone Unavailable Unavailable Unavailable Unavailable Unavailable Unavailable Unavailable Unavailable Unavailable Unavailable Unavailable Unavailable Unavailable Unavailable Unavailable Unavailable Unavailable Unavailable Unavailable Unavailable Unavailable Unavailable Unavailable Unavailable Unavailable Unavailable Unavailable Unavailable Unavailable Unavailable Unavailable Unavailable Unavailable Unavailable Unavailable Unavailable Unavailable Unavailable Unavailable Unavailable Unavailable Unavailable Unavailable Unavailable Unavailable Unavailable Unavailable Unavailable Unavailable Unavailable Unavailable Unavailable Unavailable Unavailable Unavailable Unavailable Unavailable Note Sheikh Denise Ng MD- 5 Activity: As TolerActivity: Crutc WalkActivity: Do not subActivity: No SwimDiet: CardiacSpecialty: ORSConsult phone: Consult follow up timeframe: In 1-2 wksConsulting provider 1: SILDANotify PCP of these signs and symptoms: Inc rednesNotify PCP of these signs and symptoms: Inc swellNotify PCP of these signs and symptoms: Inc tenderNotify PCP of these signs and symptoms: Mod bleedNotify PCP of these signs and symptoms: Pus dischNotify PCP of these signs and symptoms: Temp 101Notify PCP of these signs and symptoms: SOBNotify PCP of these signs and symptoms: Chest Pain Sheikh Denise Ng MD- 5 [facility] ([facility])Hospitalist Discharge SummaryREPORT#:[id number] REPORT STATUS: SignedDATE:07/04/24 TIME: 1420PATIENT: HERMELINDA JOHNSON UNIT #: [id number]#: [id number] [address]DOB: [birth year] AGE: 64 SEX: F ATTEND: Denise Reeves MDADM AUTHOR: Denise Reeves MDREP SRV REP SRV TM: 1420* ALL edits or amendments must be made on the electronic/computer document *General InformationDischarge date: 07/04/24Discharge diagnosis:Right femoral neck fracture status post right hip ORIFMechanical fallHistory of chronic microcytic anemia/prbcHypokalemiaHospital course:This patient is a visitor from [place] apparently was in a local hotel roomfell out of bed landing on her right lower extremity which gave out and patientfound to have a right femoral neck fracture. She denies any chest pain nodizziness no headache no neck stiffness no vision problem no speech impairmentno motor weakness no nausea no vomiting no seizure activity no urinary bowelincontinence.. Patient denies any head trauma no loss of consciousnessPatient had a history of chronic anemia with a exact etiology not known duepatient had history. Patient requires periodic PRBC and RN supplements.PATIENT UNDERWENT RIGHT HIP ORIF PATIENT TOLERATED PROCEDURE WELL. PATIENT HADSOME PAIN ISSUE AND LOW FLUCTUATING HEMOGLOBIN SECONDARY TO REFRACTORY THEPATIENT IS A ANEMIA. HEMATOLOGY CONSULT WAS ALSO OBTAINED PATIENT PUT ONINTRAVENOUS HEPARIN. PATIENT HEMOGLOBIN WAS STABILIZED AND PATIENT WILL FOLLOWWITH HER PRIMARY ONCOLOGIST BACK HOME.DISCUSSED WITH PATIENT ON A DAILY BASIS.Free Text DxA P NotesFree text DxA P notes:Right femoral neck fractureMechanical fallHistory of chronic microcytic anemiaHypokalemiaWill follow orthopedic recommendationDiscussed with at the bedsideAdvance care planning discuss/fullWill review patient's home medicationMed RecMed RecDischarge meds:Continue taking these medications:ALBUTEROL (PROAIR HFA 90 MCG/ACT) 90 MCG INHALER TWICE DAILY Instructions: take one puff twice a day as needed.Start taking the following new medications:RIVAROXABAN (XARELTO 10 MG) 10 MG TAB 10 MILLIGRAM ORAL WITH DINNER Qty = 30 No RefillsoxyCODONE/ACETAMINOPHEN 5/325 MG (PERCOCET 5/325 MG) 1 TAB TAB 1 TABLET ORAL EVERY 6 HOURS NEEDED as needed for Pain Scale 7-10 (Use1st) Days = 3 Qty = 14 No RefillsObjectiveHead/Eyes: atraumatic, clear cornea, EOMI, normal conjunctiva/sclera, normaleyelids/periorb., normocephalic, PERRLNeck: full range of motion, non-tender, normal thyroid, supple/no meningismus,no bruit/NL carotids, no JVD, no masses or swellingCardiovascular: normal capillary refill, regular rate rhythmRespiratory: clear to auscultation, no distressAbdomen: non-tender, normal bowel sounds, soft, no distention, no guarding, nohernia, no mass/organomegaly, no reboundRectal: not indicatedExtremities: abnormal capillary refill (Right lower extremity shortene),decreased range of motion, no edemaNeuro/SUPERVISOR PIPE FINISHING: alert, oriented X 3Skin: dry, intactDischarge InstructionsPCPDischarge to: Home/Self CareAdditional Discharge Routines: Yard Assistant Follow-UpDiet: CardiacFollow-up AppointmentsConsulting provider 1: Provider 1: Eric Munroe MD Specialty: Orthopaedic Surgery Consult follow up timeframe: In 1-2 weeks at 1424RPT #: [id number] OF REPORT Marvin Rausch APRN-3- [address] [place] [address] ([facility])Saul/Oncology Progress NoteREPORT#:[id number] REPORT STATUS: SignedDATE:07/04/24 TIME: 07PATIENT: HERMELINDA JOHNSON UNIT #: [id number]#: [id number] ROOM/BED: [place] [address]DOB: [birth year] AGE: 64 SEX: F ATTEND: Densie Reeves MDADM AUTHOR: Ella Wong APRNREP SRV REP SRV TM: 0712* ALL edits or amendments must be made on the electronic/computer document * See AddendumElla Wong 07/04/24 0712:ObjectiveGeneralVS:Vital Signs Date Temp Pulse Resp B/P B/P Mean Pulse Ox FiO2 07/03-07/04 36.7-36.9 64-78 18 116-159/61-80 92.2-105.6 92-99Last Documented: Result Date Time Pulse Ox 92 07/05 15 B/P 149/79 07/05 15 B/P Mean 102.5 07/05 15 Temp 36.7 07/05 15 Pulse 69 07/05 15 O2 Delivery Room air 07/04 2111 Resp 18 07/04 2111 O2 Flow Rate 3 06/30 0800PATIENT WEIGHT:Weight (lb):Weight (oz):Weight (kg): 79.545Medications:Active Meds + DC'd Last 24 HrsFerric Sodium Gluconate Complex (FERRLECIT/NULECIT) 125 MG DAILY IV Sodium Chloride (0.9% NACL) 100 MLHydromorphone HCl (DILAUDID (HYDROmorphone) (C-II)) 0.5 MG Q4H PRN PRN IVOxycodone/Acetaminophen (PERCOCET-5 (C-II)) 1 TAB Q4H PRN PRN PORivaroxaban (XARELTO (HIGH ALERT)) 10 MG C DIN PODocusate Sodium (COLACE) 100 MG BID PRN PRN POHydralazine HCl (APRESOLINE) 5 MG Q6H PRN PRN IVHydromorphone HCl (DILAUDID (HYDROmorphone) (C-II)) 0.5 MG Q4H PRN PRN IVOndansetron HCl (ZOFRAN) 4 MG Q4H PRN PRN IVResultsFindings/Data:Laboratory Tests07/04/24 003:[Embedded Image Not Available]Laboratory Tests 07/04 36 Chemistry Sodium (136 - 145 mmol/L) 140 Potassium (3.5 - 5.1 mmol/L) 4.6 Chloride (98 - 107 mmol/L) 105 Carbon Dioxide (20 - 31 mmol/L) 27 Anion Gap (5 - 16 mmol/L) 8 BUN (9 - 23 mg/dL) 13 Creatinine (0.55 - 1.02 mg/dL) 0.73 Est GFR (CKD-EPI) (>60 ml/min) 93 Glucose (70 - 139 mg/dL) 100 Calcium (8.3 - 10.6 mg/dL) 8.8Laboratory Tests 03/03 0037 Hematology WBC (4.8 - 10.8 K/MM3) 7.1 RBC (4.20 - 5.50 M/MM3) 4.40 Hgb (12.0 - 16.0 G/DL) 9.4 L Hct (37.0 - 47.0 %) 33.3 L MCV (80 - 100 FL) 76 L MCH (27.0 - 32.0 PG) 21.4 L MCHC (32.0 - 37.0 G/DL) 28.2 L RDW (11.5 - 14.5 %) 27.9 H Plt Count (150 - 450 K/MM3) 359 MPV (9.6 - 12.0 FL) 11.0 Absolute Nucleated RBC (0 - 0 K/MM3) 0.00 Nucleated RBCs/100 WBC (0 /100WBCS) 0Results: labs reviewed, vital signs reviewed, current med profile rev'dDiagnosis, Assessment PlanFree Text DxA P NotesFree Text DxA P Notes:Physician ROS - all systems reviewed and negative except what is listed in theHPIPhysician PEHead/Eyes: atraumatic, normocephalicENT: moist mucosal membranes, normal ear left, normal ear rightNeck: full range of motion, non-tenderCardiovascular: normal heart sounds, regular rate rhythmRespiratory: aerating well, symmetric expansion, no distressAbdomen: non-tender, normal bowel sounds, softExtremities: no cyanosis, moves all, no clubbingMusculoskeletal: normal inspection, painless range of motionNeuro/SUPERVISOR PIPE FINISHING: alert, normal speech, awakeSkin: dry, intact, normal colorPhysician A/P1. Microcytic anemiaAnemia work up:Iron 14, TIBC 331, IronSat 4, ferritin 9.1, retic 1.3%B12 431 and folate 16.03Occult stoolEpo levelWill continue to monitor and optimize during hospital staySupportive transfusion of PRBC for Hgb level less than 7.0Hgb 9.4IV iron 2/253. Right femoral head fractures/p fallOrtho consultedCase was discussed with IM attending/other specialistsThe chart review, review of laboratory radiographic studies was done by Ynes PE, face to face and treatment plan and discussion was done by Dr. ShamlooOutpatient office [facility] you very much for the consultationSDaniel pate 07/06/242111:AttestationsPhysician AttestationAgree w/findings plan:Physician ROS - all systems reviewed and negative except what is listed in theHPIPhysician PEHead/Eyes: atraumatic, normocephalicENT: moist mucosal membranes, normal ear left, normal ear rightNeck: full range of motion, non-tenderCardiovascular: normal heart sounds, regular rate rhythmRespiratory: aerating well, symmetric expansion, no distressAbdomen: non-tender, normal bowel sounds, softExtremities: no cyanosis, moves all, no clubbingMusculoskeletal: normal inspection, painless range of motionNeuro/SUPERVISOR PIPE FINISHING: alert, normal speech, awakeSkin: dry, intact, normal colorPhysician A/P1. Microcytic anemiaAnemia work up:Iron 14, TIBC 331, IronSat 4, ferritin 9.1, retic 1.3%B12 431 and folate 16.03Occult stoolEpo levelWill continue to monitor and optimize during hospital staySupportive transfusion of PRBC for Hgb level less than 7.0Hgb 9.4IV iron 2/253. Right femoral head fractures/p fallOrtho consultedCase was discussed with IM attending/other specialistsThe chart review, review of laboratory radiographic studies was done by Ynes GONSALEZ, face to face and treatment plan and discussion was done by Dr. Sanchezpatient office is [facility] you very much for the consultation at 1717 at 1859Addendum 1: 07/13/24 171 by Ella Wong APRNplease refer to physician attestation portion of note at 1717 at 1859RPT #: [id number] OF REPORT Sheikh Denise Ng MD- 5 [facility] ([facility])Hospitalist Progress NoteREPORT#:[id number] REPORT STATUS: SignedDATE:07/03/24 TIME: 1157PATIENT: HERMELINDA JOHNSON UNIT #: [id number]#: [id number] ROOM/BED: [facility]20DOB: [birth year] AGE: 64 SEX: F ATTEND: Denise Reeves MDADM AUTHOR: Denise Reeves MDREP SRV REP SRV TM: 1157* ALL edits or amendments must be made on the electronic/computer document *ObjectiveGeneralVS/I O:Vital SignsDate Temp Pulse Resp B/P B/P Mean Pulse Ox PmJ356/-07/03 98.1-98.4 64-77 17 144-159/76-83 100.6- 107.0 93-95Vital Signs: Date Time Temp Pulse Resp B/P B/P Pulse O2 O2 Flow FiO2 Mean Ox Delivery Rate 07/03 0755 98.1 64 159/79 105.6 93 03 2301 98.2 64 17 156/83 107.0 93 / 1933 98.4 71 17 151/76 100.7 94 / 1330 98.2 77 144/79 100.6 9524 hour I O ending at 0700: 07/03 0700 07/02 1900 Intake Total 350 840 Output Total 800 Balance -450 840 Intake, Oral 350 840 Number 2 Bowel Movements Number 1 Incontinent Voids Number Voids 3 Output, Urine 800Physical ExamGeneral appearance: alert, awakeHead/Eyes: atraumatic, clear cornea, EOMI, normal conjunctiva/sclera, normaleyelids/periorb., normocephalic, PERRLNeck: full range of motion, non- tender, normal thyroid, supple/no meningismus,no bruit/NL carotids, no JVD, no masses or swellingCardiovascular: normal capillary refill, regular rate rhythmRespiratory: clear to auscultation, no distressAbdomen: non-tender, normal bowel sounds, soft, no distention, no guarding, nohernia, no mass/organomegaly, no reboundRectal: not indicatedExtremities: abnormal capillary refill (Right lower extremity shortene),decreased range of motion, no edemaNeuro/SUPERVISOR PIPE FINISHING: alert, oriented X 3Skin: dry, intactResultsFindings/Data:Laboratory Tests 07/03 148 Chemistry Sodium (136 - 145 mmol/L) 144 Potassium (3.5 - 5.1 mmol/L) 4.7 Chloride (98 - 107 mmol/L) 107 Carbon Dioxide (20 - 31 mmol/L) 27 Anion Gap (5 - 16 mmol/L) 10 BUN (9 - 23 mg/dL) 15 Creatinine (0.55 - 1.02 mg/dL) 0.78 Est GFR (CKD-EPI) (>60 ml/min) 86 Glucose (70 - 139 mg/dL) 94 Calcium (8.3 - 10.6 mg/dL) 9.2Laboratory Tests 07/03 148 Hematology WBC (4.8 - 10.8 K/MM3) 6.5 RBC (4.20 - 5.50 M/MM3) 4.34 Hgb (12.0 - 16.0 G/DL) 9.1 L Hct (37.0 - 47.0 %) 32.4 L MCV (80 - 100 FL) 75 L MCH (27.0 - 32.0 PG) 21.0 L MCHC (32.0 - 37.0 G/DL) 28.1 L RDW (11.5 - 14.5 %) 27.3 H Plt Count (150 - 450 K/MM3) 353 MPV (9.6 - 12.0 FL) 11.2 Absolute Nucleated RBC (0 - 0 K/MM3) 0.00 Nucleated RBCs/100 WBC (0 /100WBCS) 0Diagnosis, Assessment PlanFree Text DxA P NotesFree text DxA P notes:Right femoral neck fracture status post right hip ORIFMechanical fallHistory of chronic microcytic anemia/prbcHypokalemiaPatient getting intravenous iron therapy secondary to iron deficiency anemiahematology consult was obtained.Discharge disposition as per PT OT recommendation and consultantDiscussed with multiple times during this hospitalization prescriptionsent to [facility] as per family request ANASTACIA Ferrell after completion ofthis prescriptionPATIENT HEMOGLOBIN IS FLUCTUATING SECONDARY TO REFRACTORY ANEMIA IF HEMOGLOBINMORE THAN 7. 5 IN NO OVERT BLEEDING THEN PATIENT WILL BE DISCHARGED TOMORROWWITH CONTINUED OUTPATIENT FOLLOW-UP BY USER INTERFACE DEVELOPER WELL THE ORTHOPEDICSURGEON FOR FURTHER WORKUP FOR ANEMIA at 1358RPT #: [id number] OF REPORT Nayely Bruner APRN-2-M ar-2024 [facility] ([facility])Saul/Oncology Progress NoteREPORT#:[id number] REPORT STATUS: SignedDATE:07/03/24 TIME: 0638PATIENT: HERMELINDA JOHNSON UNIT #: [id number]#: [id number] ROOM/BED: [place] [address]DOB: [birth year] AGE: 64 SEX: F ATTEND: Denise Reeves MDADM AUTHOR: Yuridia Adler APRNREP SRV REP SRV TM: 0638* ALL edits or amendments must be made on the electronic/computer document *Yuridia Adler 07/03/24 0638:ObjectiveGeneralMedications:Active Meds + DC'd Last 24 HrsFerric Sodium Gluconate Complex (FERRLECIT/NULECIT) 125 MG DAILY IV Sodium Chloride (0.9% NACL) 100 MLHydromorphone HCl (DILAUDID (HYDROmorphone) (C-II)) 0.5 MG Q4H PRN PRN IVOxycodone/Acetaminophen (PERCOCET-5 (C-II)) 1 TAB Q4H PRN PRN PORivaroxaban (XARELTO (HIGH ALERT)) 10 MG C DIN PODocusate Sodium (COLACE) 100 MG BID PRN PRN POHydralazine HCl (APRESOLINE) 5 MG Q6H PRN PRN IVHydromorphone HCl (DILAUDID (HYDROmorphone) (C-II)) 0.5 MG Q4H PRN PRN IVOndansetron HCl (ZOFRAN) 4 MG Q4H PRN PRN IVResultsFindings/Data:Laboratory Tests07/03/24 0149:[Embedded Image Not Available]Laboratory Tests 07/03 148 Chemistry Sodium (136 - 145 mmol/L) 144 Potassium (3.5 - 5.1 mmol/L) 4.7 Chloride (98 - 107 mmol/L) 107 Carbon Dioxide (20 - 31 mmol/L) 27 Anion Gap (5 - 16 mmol/L) 10 BUN (9 - 23 mg/dL) 15 Creatinine (0.55 - 1.02 mg/dL) 0.78 Est GFR (CKD-EPI) (>60 ml/min) 86 Glucose (70 - 139 mg/dL) 94 Calcium (8.3 - 10.6 mg/dL) 9.2Laboratory Tests 07/03 148 Hematology WBC (4.8 - 10.8 K/MM3) 6.5 RBC (4.20 - 5.50 M/MM3) 4.34 Hgb (12.0 - 16.0 G/DL) 9.1 L Hct (37.0 - 47.0 %) 32.4 L MCV (80 - 100 FL) 75 L MCH (27.0 - 32.0 PG) 21.0 L MCHC (32.0 - 37.0 G/DL) 28.1 L RDW (11.5 - 14.5 %) 27.3 H Plt Count (150 - 450 K/MM3) 353 MPV (9.6 - 12.0 FL) 11.2 Absolute Nucleated RBC (0 - 0 K/MM3) 0.00 Nucleated RBCs/100 WBC (0 /100WBCS) 0Results: labs reviewed, vital signs reviewed, current med profile rev'dDiagnosis, Assessment PlanFree Text DxA P NotesFree Text DxA P Notes:Physician ROS - all systems reviewed and negative except what is listed in theHPIPhysician PEHead/Eyes: atraumatic, normocephalicENT: moist mucosal membranes, normal ear left, normal ear rightNeck: full range of motion, non-tenderCardiovascular: normal heart sounds, regular rate rhythmRespiratory: aerating well, symmetric expansion, no distressAbdomen: non-tender, normal bowel sounds, softExtremities: no cyanosis, moves all, no clubbingMusculoskeletal: normal inspection, painless range of motionNeuro/SUPERVISOR PIPE FINISHING: alert, normal speech, awakeSkin: dry, intact, normal colorPhysician A/P1. Microcytic anemiaAnemia work up:Iron 14, TIBC 331, IronSat 4, ferritin 9.1, retic 1.3%B12 431 and folate 16.03Occult stoolEpo levelWill continue to monitor and optimize during hospital staySupportive transfusion of PRBC for Hgb level less than 7.0Hgb 9.1IV iron 2/253. Right femoral head fractures/p fallOrtho consultedCase was discussed with attending/other specialistsThe chart review, review of laboratory radiographic studies was done by Ynes GONSALEZ, face to face and treatment plan and discussion was done by Dr. Sanchezpatient office is [facility] you very much for the consultationSDaniel pate 07/03/24 1335:AttestationsPhysician AttestationAgree w/findings plan:Physician ROS - all systems reviewed and negative except what is listed in theHPIPhysician PEHead/Eyes: atraumatic, normocephalicENT: moist mucosal membranes, normal ear left, normal ear rightNeck: full range of motion, non-tenderCardiovascular: normal heart sounds, regular rate rhythmRespiratory: aerating well, symmetric expansion, no distressAbdomen: non-tender, normal bowel sounds, softExtremities: no cyanosis, moves all, no clubbingMusculoskeletal: normal inspection, painless range of motionNeuro/SUPERVISOR PIPE FINISHING: alert, normal speech, awakeSkin: dry, intact, normal colorPhysician A/P1. Microcytic anemiaAnemia work up:Iron 14, TIBC 331, IronSat 4, ferritin 9.1, retic 1.3%B12 431 and folate 16.03Occult stoolEpo levelWill continue to monitor and optimize during hospital staySupportive transfusion of PRBC for Hgb level less than 7.0Hgb 9.1IV iron 2/253. Right femoral head fractures/p fallOrtho consultedCase was discussed with attending/other specialistsThe chart review, review of laboratory radiographic studies was done by Ynes GONSALEZ, face to face and treatment plan and discussion was done by Dr. Sanchezpatient office is [facility] you very much for the consultation at 1052 at 1849RPT #: [id number] OF REPORT Sheikh Denise Ng MD- 5 [facility] ([facility]ospital[facility] Progress NoteREPORT#:[id number] REPORT STATUS: SignedDATE:07/02/24 TIME: 1346PATIENT: HERMELINDA JOHNSON UNIT #: [id number]#: [id number] ROOM/BED: [place] [address]DOB: [birth year] AGE: 64 SEX: F ATTEND: Denise Reeves MDADM AUTHOR: Denise Reeves MDREP SRV REP SRV TM: 1346* ALL edits or amendments must be made on the electronic/computer document *ObjectiveGeneralVS/I O:Vital Signs Date Temp Pulse Resp B/P B/P Mean Pulse Ox FiO2 07/01-07/02 98.2-98.6 59-77 17 124-145/78-80 94.8- 101.2 92-95Vital Signs: Date Time Temp Pulse Resp B/P B/P Pulse O2 O2 Flow FiO2 Mean Ox Delivery Rate 07/02 1330 98.2 77 144/79 100.6 95 07/02 0753 98.2 59 136/78 97.8 92 07/02 0010 98.6 77 17 145/79 101.2 93 07/01 1934 98.4 69 17 124/80 94.8 9524 hour I O ending at 0700: 07/02 0700 07/01 1900 Intake Total 350 1080 Output Total 500 1400 Balance -150 -320 Intake, Oral 350 1080 Number 1 Bowel Movements Number Voids 3 Output, Urine 500 1400Physical ExamGeneral appearance: alert, awakeHead/Eyes: atraumatic, clear cornea, EOMI, normal conjunctiva/sclera, normaleyelids/periorb., normocephalic, PERRLNeck: full range of motion, non-tender, normal thyroid, supple/no meningismus,no bruit/NL carotids, no JVD, no masses or swellingCardiovascular: normal capillary refill, regular rate rhythmRespiratory: clear to auscultation, no distressAbdomen: non-tender, normal bowel sounds, soft, no distention, no guarding, nohernia, no mass/organomegaly, no reboundRectal: not indicatedExtremities: abnormal capillary refill (Right lower extremity shortene),decreased range of motion, no edemaNeuro/SUPERVISOR PIPE FINISHING: alert, oriented X 3Skin: dry, intactResultsFindings/Data:Laboratory Tests 07/03 35 Chemistry Sodium (136 - 145 mmol/L) 141 Potassium (3.5 - 5.1 mmol/L) 4.3 Chloride (98 - 107 mmol/L) 106 Carbon Dioxide (20 - 31 mmol/L) 27 Anion Gap (5 - 16 mmol/L) 8 BUN (9 - 23 mg/dL) 11 Creatinine (0.55 - 1.02 mg/dL) 0.63 Est GFR (CKD-EPI) (>60 ml/min) 100 Glucose (70 - 139 mg/dL) 89 Calcium (8.3 - 10.6 mg/dL) 8.7Laboratory Tests 07/03 35 Hematology WBC (4.8 - 10.8 K/MM3) 6.5 RBC (4.20 - 5.50 M/MM3) 4.30 Hgb (12.0 - 16.0 G/DL) 9.3 L Hct (37.0 - 47.0 %) 32.1 L MCV (80 - 100 FL) 75 L MCH (27.0 - 32.0 PG) 21.6 L MCHC (32.0 - 37.0 G/DL) 29.0 L RDW (11.5 - 14.5 %) 26.0 H Plt Count (150 - 450 K/MM3) 325 MPV (9.6 - 12.0 FL) TNP Absolute Nucleated RBC (0 - 0 K/MM3) 0.02 H Nucleated RBCs/100 WBC (0 /100WBCS) 0Diagnosis, Assessment PlanFree Text DxA P NotesFree text DxA P notes:Right femoral neck fracture status post right hip ORIFMechanical fallHistory of chronic microcytic anemia/prbcHypokalemiaPatient getting intravenous iron therapy secondary to iron deficiency anemiahematology consult was obtained.Discharge disposition as per PT OT recommendation and consultantDiscussed with multiple times during this hospitalization prescriptionsent to [facility] family request DC Amberto after completion ofthis prescription at 1618RPT #: [id number] OF REPORT Sheikh Denise Ng MD-01-Jul-19 [facility]Hospital[facility] Progress NoteREPORT#:[id number] REPORT STATUS: SignedDATE:07/01/24 TIME: 1358PATIENT: HERMELINDA JOHNSON UNIT #: [id number]#: [id number] ROOM/BED: [place] [address]DOB: [birth year] AGE: 64 SEX: F ATTEND: Denise Reeves MDADM AUTHOR: Denise Reeves MDREP SRV REP SRV TM: 1358* ALL edits or amendments must be made on the electronic/computer document *ObjectiveGeneralVS/I O:Vital Signs Date Temp Pulse Resp B/P B/P Mean Pulse Ox FiO2 06/30-07/01 97.5-98.2 62-75 17 138-156/68-88 97.2- 108.2 91-94Vital Signs: Date Time Temp Pulse Resp B/P B/P Pulse O2 O2 Flow FiO2 Mean Ox Delivery Rate 07/01 1338 98.1 75 138/84 102.1 91 07/01 1337 98.1 74 145/87 106.2 91 07/01 0748 97.5 69 156/68 97.2 94 06/30 2323 97.9 62 17 144/81 102.0 91 06/30 1948 98.2 69 17 149/82 104.3 94 06/30 1410 98.1 74 149/88 108.2 9324 hour I O ending at 0700: 07/01 0700 06/30 1900 Intake Total 350 720 Output Total 900 100 Balance - 550 620 Intake, Oral 350 720 Number 1 Bowel Movements Number Voids 1 3 Output, Urine 900 100Physical ExamGeneral appearance: alert, awake, orientedHead/Eyes: atraumatic, clear cornea, EOMI, normal conjunctiva/sclera, normaleyelids/periorb., normocephalic, PERRLNeck: full range of motion, non-tender, normal thyroid, supple/no meningismus,no bruit/NL carotids, no JVD, no masses or swellingCardiovascular: normal capillary refill, regular rate rhythmRespiratory: clear to auscultation, no distressAbdomen: non-tender, normal bowel sounds, soft, no distention, no guarding, nohernia, no mass/organomegaly, no reboundRectal: not indicatedExtremities: abnormal capillary refill (Right lower extremity shortene),decreased range of motion, no edemaNeuro/SUPERVISOR PIPE FINISHING: alert, oriented X 3Skin: dry, intactDiagnosis, Assessment PlanFree Text DxA P NotesFree text DxA P notes:Right femoral neck fracture status post right hip ORIFMechanical fallHistory of chronic microcytic anemia/prbcHypokalemiaPatient getting intravenous iron therapy secondary to iron deficiency anemiahematology consult was obtained.Discharge disposition as per PT OT recommendation and consultant at 1358RPT #: [id number] OF REPORT Nayely Bruner APRN-- Jun-2024 [facility] ([facility])Saul/Oncology Progress NoteREPORT#:[id number] REPORT STATUS: SignedDATE:07/01/24 TIME: 06PATIENT: ALEXHERMELINDA A UNIT #: [id number]#: [id number] ROOM/BED: [place] [address]DOB: [birth year] AGE: 64 SEX: F ATTEND: Denise Reeves MDADM AUTHOR: Yuridia Adler APRNREP SRV REP SRV TM: 0605* ALL edits or amendments must be made on the electronic/computer document *Yuridia Adler 07/01/24 0605:ObjectiveGeneralMedications:Active Meds + DC'd Last 24 HrsFerric Sodium Gluconate Complex (FERRLECIT/NULECIT) 125 MG DAILY IV Sodium Chloride (0.9% NACL) 100 MLHydromorphone HCl (DILAUDID (HYDROmorphone) (C-II)) 0.5 MG Q4H PRN PRN IVOxycodone/Acetaminophen (PERCOCET-5 (C-II)) 1 TAB Q4H PRN PRN POMupirocin ([place] 2% NASAL) 1 APPLIC BID NASALRivaroxaban (XARELTO (HIGH ALERT)) 10 MG C DIN PODocusate Sodium (COLACE) 100 MG BID PRN PRN POHydralazine HCl (APRESOLINE) 5 MG Q6H PRN PRN IVHydromorphone HCl (DILAUDID (HYDROmorphone) (C-II)) 0.5 MG Q4H PRN PRN IVOndansetron HCl (ZOFRAN) 4 MG Q4H PRN PRN IVSodium Chloride (0.9% NACL) 1,000 ML .[id number] IV (DC)ResultsFindings/Data:Laboratory Tests06/30/24 0608:[Embedded Image Not Available]Laboratory Tests 06/30 06/30 0702 0702 Chemistry Iron (50 - 170 ug/dL) 14 L TIBC (250 - 425 ug/dL) 331 Iron Saturation (20 - 50 %) 4 L Ferritin (7.3 - 270.7 ng/mL) 9.1 Vitamin B12 (211 - 911 pg/mL) 431 Folate (>5.38 ng/mL) 16.03Laboratory Tests 06/30 06/30 0702 0608 Hematology WBC (4.8 - 10.8 K/MM3) 6.5 RBC (4.20 - 5.50 M/MM3) 4.42 Hgb (12.0 - 16.0 G/DL) 9.1 L Hct (37.0 - 47.0 %) 32.4 L MCV (80 - 100 FL) 73 L MCH (27.0 - 32.0 PG) 20.6 L MCHC (32.0 - 37.0 G/DL) 28.1 L RDW (11.5 - 14.5 %) 24.6 H Plt Count (150 - 450 K/MM3) 282 MPV (9.6 - 12.0 FL) 10.6 Neut % (Auto) (45.0 - 75.0) 57.4 Neut # (Auto) (1.8 - 7.7 K/MM3) 3.8 Lymph # (Auto) (1.0 - 4.8 K/MM3) 1.8 Jay # (Auto) (0.2 - 1.0 K/MM3) 0.6 Eos # (Auto) (0.0 - 0.5 K/MM3) 0.3 Baso # (Auto) (0.0 - 0.2 K/MM3) 0.0 Immature Gran # (Auto) (0.01 - 0.02 K/MM3) 0.02 Absolute Nucleated RBC (0 - 0 K/MM3) 0.00 Immature Gran % (0.1 - 0.3) 0.3 Lymphocytes % (15.0 - 45.0) 28.1 Monocytes % (4.0 - 12.0) 9.2 Eosinophils % (0.0 - 4.0) 4.4 H Basophils % (0.0 - 2.0) 0.6 Nucleated RBCs/100 WBC (0 /100WBCS) 0 Retic Count (0.5 - 1.5 %) 1.3 Absolute Retic (15.0 - 75.0 X10E9/L) 51.6 Immature Retic Fraction (2.0 - 16.0 %) 25.4 HResults: labs reviewed, vital signs reviewed, current med profile revDaniel Coffey 07/01/24 1737:AttestationsPhysician AttestationAgree w/findings plan:Physician ROS - all systems reviewed and negative except what is listed in theHPIPhysician PEHead/Eyes: atraumatic, normocephalicENT: moist mucosal membranes, normal ear left, normal ear rightNeck: full range of motion, non-tenderCardiovascular: normal heart sounds, regular rate rhythmRespiratory: aerating well, symmetric expansion, no distressAbdomen: non-tender, normal bowel sounds, softExtremities: no cyanosis, moves all, no clubbingMusculoskeletal: normal inspection, painless range of motionNeuro/SUPERVISOR PIPE FINISHING: alert, normal speech, awakeSkin: dry, intact, normal colorPhysician A/P1. Microcytic anemiaAnemia work up:Iron 14, TIBC 331, IronSat 4, ferritin 9.1, retic 1.3%B12 431 and folate 16.03Occult stoolEpo levelWill continue to monitor and optimize during hospital staySupportive transfusion of PRBC for Hgb level less than 7.0Hgb 9.1IV iron 2/253. Right femoral head fractures/p fallOrtho consultedCase was discussed with IM attending/other specialistsThe chart review, review of laboratory radiographic studies was done by Ynes GONSALEZ, face to face and treatment plan and discussion was done by Dr. Sanchezpatient office is [facility] you very much for the consultation at 0638 at 1432RPT #: [id number] OF REPORT Sheikh Denise Ng MD-27- [facility] ([facility])Hospitalist Progress NoteREPORT#:[id number] REPORT STATUS: SignedDATE:06/30/24 TIME: 1630PATIENT: HERMELINDA JOHNSON UNIT #: [id number]#: [id number] ROOM/BED: [place] [address]DOB: [birth year] AGE: 64 SEX: F ATTEND: Denise Reeves MDADM AUTHOR: Denise Reeves MDREP SRV REP SRV TM: 1630* ALL edits or amendments must be made on the electronic/computer document *ObjectivePhysical ExamHead/Eyes: atraumatic, clear cornea, EOMI, normal conjunctiva/sclera, normaleyelids/periorb., normocephalic, PERRLNeck: full range of motion, non-tender, normal thyroid, supple/no meningismus,no bruit/NL carotids, no JVD, no masses or swellingCardiovascular: normal capillary refill, regular rate rhythmRespiratory: clear to auscultation, no distressAbdomen: non-tender, normal bowel sounds, soft, no distention, no guarding, nohernia, no mass/organomegaly, no reboundRectal: not indicatedExtremities: abnormal capillary refill (Right lower extremity shortene),decreased range of motion, no edemaNeuro/SUPERVISOR PIPE FINISHING: alert, oriented X 3Skin: dry, intactDiagnosis, Assessment PlanFree Text DxA P NotesFree text DxA P notes:Right femoral neck fracture status post right hip ORIFMechanical fallHistory of chronic microcytic anemia/prbcHypokalemiaPatient getting intravenous iron therapy secondary to iron deficiency anemiahematology consult was obtained.Discharge disposition as per PT OT recommendation and consultant at 1633RPT #: [id number] OF REPORT Nayely Bruner APRN-- Jun-2024 [facility] ([facility])Saul/Oncology Progress NoteREPORT#:[id number] REPORT STATUS: SignedDATE:06/30/24 TIME: 1315PATIENT: HERMELINDA JOHNSON UNIT #: [id number]#: [id number] ROOM/BED: [place] [address]DOB: [birth year] AGE: 64 SEX: F ATTEND: Denise Reeves [facility] AUTHOR: Yuridia Adler APRNREP SRV REP SRV TM: 1315* ALL edits or amendments must be made on the electronic/computer document *Yuridia Adler 06/30/24 1315:ObjectiveGeneralMedications:Active Meds + DC'd Last 24 HrsFerric Sodium Gluconate Complex (FERRLECIT/NULECIT) 125 MG DAILY IV Sodium Chloride (0.9% NACL) 100 MLHydromorphone HCl (DILAUDID (HYDROmorphone) (C-II)) 0.5 MG Q4H PRN PRN IVOxycodone/Acetaminophen (PERCOCET-5 (C-II)) 1 TAB Q4H PRN PRN POMupirocin (BACTROBAN OINT 2% NASAL) 1 APPLIC BID NASALRivaroxaban (XARELTO (HIGH ALERT)) 10 MG C DIN PODocusate Sodium (COLACE) 100 MG BID PRN PRN POHydralazine HCl (APRESOLINE) 5 MG Q6H PRN PRN IVHydromorphone HCl (DILAUDID (HYDROmorphone) (C-II)) 0.5 MG Q4H PRN PRN IVOndansetron HCl (ZOFRAN) 4 MG Q4H PRN PRN IVSodium Chloride (0.9% NACL) 1,000 ML .[id number] IVResultsFindings/Data:Laboratory Tests06/30/24 0608:[Embedded Image Not Available]Laboratory Tests 06/30 06/30 0702 0702 Chemistry Iron (50 - 170 ug/dL) 14 L TIBC (250 - 425 ug/dL) 331 Iron Saturation (20 - 50 %) 4 L Ferritin (7.3 - 270.7 ng/mL) 9.1 Vitamin B12 (211 - 911 pg/mL) 431 Folate (>5.38 ng/mL) 16.03Laboratory Tests 06/30 06/30 0702 0608 Hematology WBC (4.8 - 10.8 K/MM3) 6.5 RBC (4.20 - 5.50 M/MM3) 4.42 Hgb (12.0 - 16.0 G/DL) 9.1 L Hct (37.0 - 47.0 %) 32.4 L MCV (80 - 100 FL) 73 L MCH (27.0 - 32.0 PG) 20.6 L MCHC (32.0 - 37.0 G/DL) 28.1 L RDW (11.5 - 14.5 %) 24.6 H Plt Count (150 - 450 K/MM3) 282 MPV (9.6 - 12.0 FL) 10.6 Neut % (Auto) (45.0 - 75.0) 57.4 Neut # (Auto) (1.8 - 7.7 K/MM3) 3.8 Lymph # (Auto) (1.0 - 4.8 K/MM3) 1.8 Jay # (Auto) (0.2 - 1.0 K/MM3) 0.6 Eos # (Auto) (0.0 - 0.5 K/MM3) 0.3 Baso # (Auto) (0.0 - 0.2 K/MM3) 0.0 Immature Gran # (Auto) (0.01 - 0.02 K/MM3) 0.02 Absolute Nucleated RBC (0 - 0 K/MM3) 0.00 Immature Gran % (0.1 - 0.3) 0.3 Lymphocytes % (15.0 - 45.0) 28.1 Monocytes % (4.0 - 12.0) 9.2 Eosinophils % (0.0 - 4.0) 4.4 H Basophils % (0.0 - 2.0) 0.6 Nucleated RBCs/100 WBC (0 /100WBCS) 0 Retic Count (0.5 - 1.5 %) 1.3 Absolute Retic (15.0 - 75.0 X10E9/L) 51.6 Immature Retic Fraction (2.0 - 16.0 %) 25.4 HResults: labs reviewed, vital signs reviewed, current med profile revDaniel Coffey 06/30/24 1654:AttestationsPhysician AttestationAgree w/findings plan:Physician ROS - all systems reviewed and negative except what is listed in theHPIPhysician PEHead/Eyes: atraumatic, normocephalicENT: moist mucosal membranes, normal ear left, normal ear rightNeck: full range of motion, non-tenderCardiovascular: normal heart sounds, regular rate rhythmRespiratory: aerating well, symmetric expansion, no distressAbdomen: non-tender, normal bowel sounds, softExtremities: no cyanosis, moves all, no clubbingMusculoskeletal: normal inspection, painless range of motionNeuro/SUPERVISOR PIPE FINISHING: alert, normal speech, awakeSkin: dry, intact, normal colorPhysician A/P1. Microcytic anemiaAnemia work up:Iron 14, TIBC 331, IronSat 4, ferritin 9.1, retic 1.3%B12 431 and folate 16.03Occult stoolEpo levelWill continue to monitor and optimize during hospital staySupportive transfusion of PRBC for Hgb level less than 7.0Hgb 9.1IV iron 2/253. Right femoral head fractures/p fallOrtho consultedCase was discussed with IM attending/other specialistsThe chart review, review of laboratory radiographic studies was done by Ynes GONSALEZ, face to face and treatment plan and discussion was done by Dr. Sanchezpatient office is [facility] you very much for the consultation at 1744 at 1432RPT #: [id number] OF REPORT [facility] ([facility])Saul/Oncology Consult NoteREPORT#:[id number] REPORT STATUS: SignedDATE:06/29/24 TIME: 2206PATIENT: HERMLEINDA JOHNSON UNIT #: [id number]#: [id number] RO[address]DOB: [birth year] AGE: 64 SEX: F ATTEND: Denise Reeves MDADM AUTHOR: Sulema Zaldivar APRNREP SRV REP SRV TM: 1819* ALL edits or amendments must be made on the electronic/computer document *Sulema Zaldivar E.Aprn 06/29/242206:History of Present IllnessHPI:HPI completed by Dr. Chisholm64F who is visiting from [place] presented [facility] following a fall in her hotelroom resulting in a right femoral neck fractureHematology consulted concerning anemiaHistory - Adult longitudinalAllergies:Coded Allergies:No Known Allergies (06/26/24)ObjectivePhysical ExamVS:Vital Signs Date Temp Pulse Resp B/P B/P Mean Pulse Ox FiO2 06/29 98.1- 98.6 59-88 18 123-158/69-85 88.3-107.2 85-97Last Documented: Result Date Time Pulse Ox 91 06/29 2035 B/P 151/79 06/29 2035 B/P Mean 103.2 06/29 2035 O2 Delivery Room air 06/29 2035 Temp 98.1 06/29 2035 Pulse 74 06/29 2035 Resp 18 06/29 2035 O2 Flow Rate 3 06/28 2009PATIENT WEIGHT:Weight (lb):Weight (oz):Weight (kg): 79.545ResultsFindings/Data:Laboratory Tests06/29/24312:[Embedded Image Not Available]Laboratory Tests 06/29 312 Chemistry Sodium (136 - 145 mmol/L) 143 Potassium (3.5 - 5.1 mmol/L) 4.1 Chloride (98 - 107 mmol/L) 109 H Carbon Dioxide (20 - 31 mmol/L) 24 Anion Gap (5 - 16 mmol/L) 10 BUN (9 - 23 mg/dL) 10 Creatinine (0.55 - 1.02 mg/dL) 0.58 Est GFR (CKD-EPI) (>60 ml/min) 102 Glucose (70 - 139 mg/dL) 92 Calcium (8.3 - 10.6 mg/dL) 8.9Laboratory Tests 06/29 312 Hematology WBC (4.8 - 10.8 K/MM3) 7.5 RBC (4.20 - 5.50 M/MM3) 3.55 L Hgb (12.0 - 16.0 G/DL) 7.0 L Hct (37.0 - 47.0 %) 25.6 L MCV (80 - 100 FL) 72 L MCH (27.0 - 32.0 PG) 19.7 L MCHC (32.0 - 37.0 G/DL) 27.3 L RDW (11.5 - 14.5 %) 23.7 H Plt Count (150 - 450 K/MM3) 261 MPV (9.6 - 12.0 FL) 11.2 Absolute Nucleated RBC (0 - 0 K/MM3) 0.00 Nucleated RBCs/100 WBC (0 /100WBCS) Daniel Ellis 06/30/24 1654:AttestationsPhysician AttestationAgree w/findings plan:Physician ROS - all systems reviewed and negative except what is listed in theHPIPhysician PEHead/Eyes: atraumatic, normocephalicENT: moist mucosal membranes, normal ear left, normal ear rightNeck: full range of motion, non-tenderCardiovascular: normal heart sounds, regular rate rhythmRespiratory: aerating well, symmetric expansion, no distressAbdomen: non-tender, normal bowel sounds, softExtremities: no cyanosis, moves all, no clubbingMusculoskeletal: normal inspection, painless range of motionNeuro/SUPERVISOR PIPE FINISHING: alert, normal speech, awakeSkin: dry, intact, normal colorPhysician A/P1. Microcytic anemiaAnemia work up:Iron panel, ferritin, bmqzhT10 and folateOccult stoolEpo levelWill continue to monitor and optimize during hospital staySupportive transfusion of PRBC for Hgb level less than 7.0Hgb 8.1IV iron 253. Right femoral head fractures/p fallOrtho consultedCase was discussed with IM attending/other specialistsThe chart review, review of laboratory radiographic studies was done by Ynes GONSALEZ, face to face and treatment plan and discussion was done by Dr. Sanchezpatient office is [facility] you very much for the consultation at 1916 at 1320RPT #: [id number] OF REPORT Sheikh Denise Ng MD-26- [facility] ([facility])Hospitalist Progress NoteREPORT#:[id number] REPORT STATUS: SignedDATE:06/29/24 TIME: 1544PATIENT: ALEXHERMELINDA A UNIT #: [id number]#: [id number] ROOM/BED: [place] [address]DOB: [birth year] AGE: 64 SEX: F ATTEND: Denise Reeves MDADM AUTHOR: Denise Reeves MDREP SRV REP SRV TM: 1541* ALL edits or amendments must be made on the electronic/computer document *SubjectiveHPI:This patient is a visitor from [place] apparently was in a local hotel roomfell out of bed landing on her right lower extremity which gave out and patientfound to have a right femoral neck fracture. She denies any chest pain nodizziness no headache no neck stiffness no vision problem no speech impairmentno motor weakness no nausea no vomiting no seizure activity no urinary bowelincontinence.. Patient denies any head trauma no loss of consciousnessPatient had a history of chronic anemia with a exact etiology not known duepatient had history. Patient requires periodic PRBC and RN supplements.ObjectiveGeneralVS/I O:Vital Signs Date Temp Pulse Resp B/P B/P Mean Pulse Ox FiO2 06/28-06/29 98.2-99.1 59-88 18 123-158/69-85 88.3-107.2 85-97Vital Signs: Date Time Temp Pulse Resp B/P B/P Pulse O2 O2 Flow FiO2 Mean Ox Delivery Rate 06/29 1343 98.6 88 147/83 104.3 92 06/29 1054 98.2 80 158/81 107.2 91 06/29 0747 61 97 06/29 0747 98.4 59 123/76 91.8 96 06/29 0720 98.4 70 134/80 97.9 95 06/29 0520 98.6 78 18 143/85 94 Room air 06/29 0022 98.6 85 18 127/69 88.3 85 Room air 06/28 2010 Nasal 3 cannula 06/28 1945 99.1 79 18 128/74 92.2 91 Room air 06/28 1616 Nasal 2 xkajdid12 hour I O ending at 0700: 06/29 0700 06/28 1900 Intake Total 240 Output Total 300 1000 Balance -300 -760 Intake, Oral 240 Output, Urine 300 1000Physical ExamGeneral appearance: alert, awake, orientedHead/Eyes: atraumatic, clear cornea, EOMI, normal conjunctiva/sclera, normaleyelids/periorb., normocephalic, PERRLNeck: full range of motion, non-tender, normal thyroid, supple/no meningismus,no bruit/NL carotids, no JVD, no masses or swellingCardiovascular: normal capillary refill, regular rate rhythmRespiratory: clear to auscultation, no distressAbdomen: non-tender, normal bowel sounds, soft, no distention, no guarding, nohernia, no mass/organomegaly, no reboundRectal: not indicatedExtremities: abnormal capillary refill (Right lower extremity shortene),decreased range of motion, no edemaNeuro/SUPERVISOR PIPE FINISHING: alert, oriented X 3Skin: dry, intactResultsFindings/Data:Laboratory Tests 02/26 0313 Chemistry Sodium (136 - 145 mmol/L) 143 Potassium (3.5 - 5.1 mmol/L) 4.1 Chloride (98 - 107 mmol/L) 109 H Carbon Dioxide (20 - 31 mmol/L) 24 Anion Gap (5 - 16 mmol/L) 10 BUN (9 - 23 mg/dL) 10 Creatinine (0.55 - 1.02 mg/dL) 0.58 Est GFR (CKD-EPI) (>60 ml/min) 102 Glucose (70 - 139 mg/dL) 92 Calcium (8.3 - 10.6 mg/dL) 8.9Laboratory Tests 06/29 0313 Hematology WBC (4.8 - 10.8 K/MM3) 7.5 RBC (4.20 - 5.50 M/MM3) 3.55 L Hgb (12.0 - 16.0 G/DL) 7.0 L Hct (37.0 - 47.0 %) 25.6 L MCV (80 - 100 FL) 72 L MCH (27.0 - 32.0 PG) 19.7 L MCHC (32.0 - 37.0 G/DL) 27.3 L RDW (11.5 - 14.5 %) 23.7 H Plt Count (150 - 450 K/MM3) 261 MPV (9.6 - 12.0 FL) 11.2 Absolute Nucleated RBC (0 - 0 K/MM3) 0.00 Nucleated RBCs/100 WBC (0 /100WBCS) 0Diagnosis, Assessment PlanFree Text DxA P NotesFree text DxA P notes:Right femoral neck fracture status post right hip ORIFMechanical fallHistory of chronic microcytic anemia/prbcHypokalemiaWill follow orthopedic recommendationDiscussed with at the bedsidepatient is due for iv iron tx as stated by patient.will get hematology eval at 1548RPT #: [id number] OF REPORT Sheikh Denise Ng MD-28-Jun-[address] [facility] ([facility])Hospitalist Progress NoteREPORT#:[id number] REPORT STATUS: SignedDATE:06/28/24 TIME: 1324PATIENT: HERMELINDA JOHNSON UNIT #: [id number]#: [id number] ROOM/BED: 3812[address]0DOB: [birth year] AGE: 64 SEX: F ATTEND: Denise Reeves MDADM AUTHOR: Denise Reeves MDREP SRV REP SRV TM: 1324* ALL edits or amendments must be made on the electronic/computer document *SubjectiveHPI:This patient is a visitor from [place] apparently was in a local hotel roomfell out of bed landing on her right lower extremity which gave out and patientfound to have a right femoral neck fracture. She denies any chest pain nodizziness no headache no neck stiffness no vision problem no speech impairmentno motor weakness no nausea no vomiting no seizure activity no urinary bowelincontinence.. Patient denies any head trauma no loss of consciousnessPatient had a history of chronic anemia with a exact etiology not known duepatient had history. Patient requires periodic PRBC and RN supplements.ObjectiveGeneralVS/I O:Vital Signs Date Temp Pulse Resp B/P B/P Mean Pulse Ox FiO2 06/27-06/28 97.9-99.3 77-87 16 113-130/68-76 0.0-94.2 92-96Vital Signs: Date Time Temp Pulse Resp B/P B/P Pulse O2 O2 Flow FiO2 Mean Ox Delivery Rate 06/28 0723 97.9 77 130/76 94.2 96 06/28 0054 97.9 78 16 129/68 0.0 96 Nasal 2 cannula 06/27 2030 Nasal 3 cannula 06/27 2026 99.3 80 16 113/71 85.1 94 Room air 06/27 1536 96 Room air 06/27 1418 99.3 87 121/72 88.2 9224 hour I O ending at 0700: 06/28 0700 06/27 1900 Intake Total 980 Output Total 800 Balance 180 Intake, Oral 980 Output, Urine 800Physical ExamGeneral appearance: alert, awake, orientedHead/Eyes: atraumatic, clear cornea, EOMI, normal conjunctiva/sclera, normaleyelids/periorb., normocephalic, PERRLNeck: full range of motion, non-tender, normal thyroid, supple/no meningismus,no bruit/NL carotids, no JVD, no masses or swellingCardiovascular: normal capillary refill, regular rate rhythmRespiratory: clear to auscultation, no distressAbdomen: non-tender, normal bowel sounds, soft, no distention, no guarding, nohernia, no mass/organomegaly, no reboundRectal: not indicatedExtremities: abnormal capillary refill (Right lower extremity shortene),decreased range of motion, no edemaNeuro/SUPERVISOR PIPE FINISHING: alert, oriented X 3Skin: dry, intactResultsFindings/Data:Laboratory Tests 06/28 312 Chemistry Sodium (136 - 145 mmol/L) 141 Potassium (3.5 - 5.1 mmol/L) 4.0 Chloride (98 - 107 mmol/L) 107 Carbon Dioxide (20 - 31 mmol/L) 27 Anion Gap (5 - 16 mmol/L) 7 BUN (9 - 23 mg/dL) 12 Creatinine (0.55 - 1.02 mg/dL) 0.66 Est GFR (CKD-EPI) (>60 ml/min) 99 Glucose (70 - 139 mg/dL) 91 Calcium (8.3 - 10.6 mg/dL) 8.7Laboratory Tests 06/28 312 Hematology WBC (4.8 - 10.8 K/MM3) 9.4 RBC (4.20 - 5.50 M/MM3) 3.93 L Hgb (12.0 - 16.0 G/DL) 8.1 L Hct (37.0 - 47.0 %) 28.6 L MCV (80 - 100 FL) 73 L MCH (27.0 - 32.0 PG) 20.6 L MCHC (32.0 - 37.0 G/DL) 28.3 L RDW (11.5 - 14.5 %) 23.9 H Plt Count (150 - 450 K/MM3) 267 MPV (9.6 - 12.0 FL) TNP Absolute Nucleated RBC (0 - 0 K/MM3) 0.00 Nucleated RBCs/100 WBC (0 /100WBCS) 0Diagnosis, Assessment PlanFree Text DxA P NotesFree text DxA P notes:Right femoral neck fracture status post right hip ORIFMechanical fallHistory of chronic microcytic anemia/HypokalemiaWill follow orthopedic recommendationDiscussed with at the bedside at 1659RPT #: [id number] OF REPORT Sheikh Denise Ng MD-27-Jun-19 [facility] Progress NoteREPORT#:[id number] REPORT STATUS: SignedDATE:06/27/24 TIME: 1317PATIENT: HERMELINDA JOHNSON UNIT #: [id number]#: [id number] ROOM/BED: 3812-0DOB: [birth year] AGE: 64 SEX: F ATTEND: Denise Reeves MDADM AUTHOR: Denise Reeves MDREP SRV REP SRV TM: 1317* ALL edits or amendments must be made on the electronic/computer document *SubjectiveHPI:This patient is a visitor from [place] apparently was in a local hotel roomfell out of bed landing on her right lower extremity which gave out and patientfound to have a right femoral neck fracture. She denies any chest pain nodizziness no headache no neck stiffness no vision problem no speech impairmentno motor weakness no nausea no vomiting no seizure activity no urinary bowelincontinence.. Patient denies any head trauma no loss of consciousnessPatient had a history of chronic anemia with a exact etiology not known duepatient had history. Patient requires periodic PRBC and RN supplements.ObjectiveGeneralVS/I O:Vital Signs Date Temp Pulse Resp B/P B/P Mean Pulse Ox FiO2 06/26-06/27 96.8-98.2 77-109 14-16 108-128/56-75 0.0-89.2 91- 100Vital Signs: Date Time Temp Pulse Resp B/P B/P Pulse O2 O2 Flow FiO2 Mean Ox Delivery Rate 06/27 0756 97.9 77 118/75 89.2 91 06/27 0441 88 108/68 81.6 96 06/27 0030 97.5 81 14 123/70 0.0 93 Nasal 2 cannula 06/26 2000 98.2 94 14 118/74 88.5 92 Nasal 2 cannula 06/26 1653 97.5 95 110/71 84.3 91 06/26 1607 Nasal 2 cannula 06/26 1530 109 128/60 98 Nasal 3 cannula 06/26 1525 99 117/56 100 Simple 6 mask 06/26 1523 Simple 15 mask 06/26 1520 107 114/57 94 Simple 15 mask 06/26 1515 102 114/69 94 Simple 10 mask 06/26 1511 96.8 104 16 114/59 94 Simple 15 mask24 hour I O ending at 0700: 06/27 0700 06/26 1900 Intake Total 480 480 Output Total 600 Balance -120 480 Intake, Oral 480 480 Output, Urine 600Physical ExamGeneral appearance: alert, awakeHead/Eyes: atraumatic, clear cornea, EOMI, normal conjunctiva/sclera, normaleyelids/periorb., normocephalic, PERRLNeck: full range of motion, non-tender, normal thyroid, supple/no meningismus,no bruit/NL carotids, no JVD, no masses or swellingCardiovascular: normal capillary refill, regular rate rhythmRespiratory: clear to auscultation, no distressAbdomen: non-tender, normal bowel sounds, soft, no distention, no guarding, nohernia, no mass/organomegaly, no reboundRectal: not indicatedExtremities: abnormal capillary refill (Right lower extremity shortene),decreased range of motion, no edemaNeuro/SUPERVISOR PIPE FINISHING: alert, oriented X 3Skin: dry, intactResultsFindings/Data:Laboratory Tests 06/27 020 Chemistry Sodium (136 - 145 mmol/L) 143 Potassium (3.5 - 5.1 mmol/L) 4.5 Chloride (98 - 107 mmol/L) 108 H Carbon Dioxide (20 - 31 mmol/L) 24 Anion Gap (5 - 16 mmol/L) 11 BUN (9 - 23 mg/dL) 13 Creatinine (0.55 - 1.02 mg/dL) 0.67 Est GFR (CKD-EPI) (>60 ml/min) 99 Glucose (70 - 139 mg/dL) 127 Calcium (8.3 - 10.6 mg/dL) 8.9Laboratory Tests 06/27 0207 Hematology WBC (4.8 - 10.8 K/MM3) 9.0 RBC (4.20 - 5.50 M/MM3) 3.76 L Hgb (12.0 - 16.0 G/DL) 7.8 L Hct (37.0 - 47.0 %) 27.1 L MCV (80 - 100 FL) 72 L MCH (27.0 - 32.0 PG) 20.7 L MCHC (32.0 - 37.0 G/DL) 28.8 L RDW (11.5 - 14.5 %) 24.0 H Plt Count (150 - 450 K/MM3) 270 MPV (9.6 - 12.0 FL) TNP Neut % (Auto) (45.0 - 75.0) 82.6 H Neut # (Auto) (1.8 - 7.7 K/MM3) 7.5 Lymph # (Auto) (1.0 - 4.8 K/MM3) 0.9 L Jay # (Auto) (0.2 - 1.0 K/MM3) 0.7 Eos # (Auto) (0.0 - 0.5 K/MM3) 0.0 Baso # (Auto) (0.0 - 0.2 K/MM3) 0.0 Immature Gran # (Auto) (0.01 - 0.02 K/MM3) 0.04 H Absolute Nucleated RBC (0 - 0 K/MM3) 0.00 Immature Gran % (0.1 - 0.3) 0.4 H Lymphocytes % (15.0 - 45.0) 9.6 L Monocytes % (4.0 - 12.0) 7.3 Eosinophils % (0.0 - 4.0) 0.0 Basophils % (0.0 - 2.0) 0.1 Nucleated RBCs/100 WBC (0 /100WBCS) 0Diagnosis, Assessment PlanFree Text DxA P NotesFree text DxA P notes:Right femoral neck fracture status post right hip ORIFMechanical fallHistory of chronic microcytic anemia/HypokalemiaWill follow orthopedic recommendationDiscussed with at the bedside at 7911RPT #: [id number] OF REPORT Ludwig Ng MD- [facility] ([facility])Operative Note - FullREPORT#:[id number] REPORT STATUS: SignedDATE:06/26/24 TIME: 1454PATIENT: HERMELINDA JOHNSON UNIT #: [id number]#: [id number] [address]: [address] AGE: 64 SEX: F ATTEND: Denise Reeves AUTHOR: Eric Munroe MDREP SRV REP SRV TM: 1455* ALL edits or amendments must be made on the electronic/computer document *Operative ReportORM Surgeries Surgery Date and Time: 2024 1500 Primary Procedure[facility] Surgeon:Eric Munroe MDAssistant(s): nonePre-procedure diagnosis:R hip fracturePost-procedure diagnosis: same as pre-procedure dxAnesthesia: general endotrachealEstimated blood loss in ml's: 100ccSpecimens removed/altered: noneComplications: noneImplant(s): StrykerProcedure(s) performed:R hip ORiF ([facility])Technique/Procedure:Patient and/or the family was met within the preop holding area. The necessityof the procedure was discussed with the patient and/or family. The major riskswere discussed although this was not meant to be an exhaustive list. Theserisks include infection, fracture, nerve injury, dislocation, instability, pain,stiffness, heterotopic ossification, deformity and limb length discrepancy, andothers. Following this discussion the patient was agreeable to give me informedconsent. Patient was deemed medically optimized by the anesthesia staff fromcardiopulmonary and comorbidity standpoint.I spoke with the patient prior to going back to the operating room. Her husbandalso was at the bedside. They agreed to allow me to proceed see to surgery forfixation of her right hip. The understood the risks of the procedure. Patienthas no underlying comorbidities to preclude emergent surgery.Risks include infection, nonunion, malunion, loss of fixation, hardware cut-outwere cut through, and others.Operative findings:stable non displaced R fem neck fx at 1457RPT #: [id number] OF REPORT Sheikh Denise Ng MD-26-Jun-19 [facility] ([facility])Hospitalist History PhysicalREPORT#:[id number] REPORT STATUS: SignedDATE:06/26/24 TIME: 1132PATIENT: JOHNSONHERMELINDA Berenice UNIT #: [id number]#: [id number] [address] AGE: 64 SEX: F ATTEND: Denise Reeves MDADM AUTHOR: Denise Reeves MDREP SRV REP SRV TM: 1132* ALL edits or amendments must be made on the electronic/computer document *History of Present IllnessHPIHPI:This patient is a visitor from [place] apparently was in a local hotel roomfell out of bed landing on her right lower extremity which gave out and patientfound to have a right femoral neck fracture. She denies any chest pain nodizziness no headache no neck stiffness no vision problem no speech impairmentno motor weakness no nausea no vomiting no seizure activity no urinary bowelincontinence.. Patient denies any head trauma no loss of consciousnessPatient had a history of chronic anemia with a exact etiology not known duepatient had history. Patient requires periodic PRBC and RN supplements.HistorySmoking status for patients 13 years old or older: Never SmokerMedication/Allergy-Vaccine HxAllergies:Coded Allergies:No Known Allergies (06/26/24)ObjectiveGeneralVS/I O:Vital Signs: Date Time Temp Pulse Resp B/P B/P Pulse O2 O2 Flow FiO2 Mean Ox Delivery Rate 06/26 0648 Room air24 hour I O ending at 0700: 06/26 0700 06/25 1900 Intake Total Output Total Balance Patient 79.545 kg Weight Weight Stated/Reported Measurement MethodPATIENT WEIGHT:Weight (lb):Weight (oz):Weight (kg): 79.545Physical ExamGeneral appearance: alert, awakeHead/Eyes: atraumatic, clear cornea, EOMI, normal conjunctiva/sclera, normaleyelids/periorb., normocephalic, PERRLNeck: full range of motion, non-tender, normal thyroid, supple/no meningismus,no bruit/NL carotids, no JVD, no masses or swellingCardiovascular: normal capillary refill, regular rate rhythmRespiratory: clear to auscultation, no distressAbdomen: non-tender, normal bowel sounds, soft, no distention, no guarding, nohernia, no mass/organomegaly, no reboundRectal: not indicatedExtremities: abnormal capillary refill (Right lower extremity shortene),decreased range of motion, no edemaNeuro/SUPERVISOR PIPE FINISHING: alert, oriented X 3Skin: dry, intactResultsFindings/Data:Laboratory Tests 06/26 713 Chemistry Sodium (136 - 145 mmol/L) 143 Potassium (3.5 - 5.1 mmol/L) 3.4 L Chloride (98 - 107 mmol/L) 111 H Carbon Dioxide (20 - 31 mmol/L) 26 Anion Gap (5 - 16 mmol/L) 6 BUN (9 - 23 mg/dL) 14 Creatinine (0.55 - 1.02 mg/dL) 0.75 Est GFR (CKD-EPI) (>60 ml/min) 90 Glucose (70 - 139 mg/dL) 116 Calcium (8.3 - 10.6 mg/dL) 8.8 Total Bilirubin (0.2 - 1.1 mg/dL) 0.9 AST (8 - 33 U/L) 20 ALT (10 - 49 U/L) 16 Total Alk Phosphatase (46 - 116 U/L) 52 Total Protein (5.7 - 8.2 g/dL) 6.5 Albumin (3.2 - 4.8 g/dL) 4.1 Albumin/Globulin Ratio (0.9 - 1.9 g/dL) 1.7Laboratory Tests 06/26 713 Coagulation PT (9.0 - 12.0 SECONDS) 11.0 INR (0.9 - 1.2) 1.0 APTT (23 - 35 SECONDS) 24Laboratory Tests 06/26 713 Hematology WBC (4.8 - 10.8 K/MM3) 5.4 RBC (4.20 - 5.50 M/MM3) 4.17 L Hgb (12.0 - 16.0 G/DL) 8.5 L Hct (37.0 - 47.0 %) 29.1 L MCV (80 - 100 FL) 70 L MCH (27.0 - 32.0 PG) 20.4 L MCHC (32.0 - 37.0 G/DL) 29.2 L RDW (11.5 - 14.5 %) 24.1 H Plt Count (150 - 450 K/MM3) 291 MPV (9.6 - 12.0 FL) 11.3 Neut % (Auto) (45.0 - 75.0) 71.1 Neut # (Auto) (1.8 - 7.7 K/MM3) 3.9 Lymph # (Auto) (1.0 - 4.8 K/MM3) 1.1 Jay # (Auto) (0.2 - 1.0 K/MM3) 0.3 Eos # (Auto) (0.0 - 0.5 K/MM3) 0.1 Baso # (Auto) (0.0 - 0.2 K/MM3) 0.0 Immature Gran # (Auto) (0.01 - 0.02 K/MM3) 0.05 H Absolute Nucleated RBC (0 - 0 K/MM3) 0.00 Immature Gran % (0.1 - 0.3) 0.9 H Lymphocytes % (15.0 - 45.0) 20.4 Monocytes % (4.0 - 12.0) 5.7 Eosinophils % (0.0 - 4.0) 1.7 Basophils % (0.0 - 2.0) 0.2 Nucleated RBCs/100 WBC (0 /100WBCS) 0Radiology data:Recent Impressions:RADIOLOGY - XR HIP RIGHT W/PELVIS 2-3V 06/26 0650 Report Impression - Status: SIGNED Entered: 2024 0801IMPRESSION:Acute, nondisplaced fracture of the right femoral neck.Electronically signed by: Eric Ramesh MD 2024 07:59AM [facility] Workstation: [id number] By: DR.PASDA Charlene Ramesh,MDResults: labs reviewed, vital signs stableDiagnosis, Assessment PlanCode Status/Resusc. DiscussionResuscitation discussion: Discussed with: patientCode status: full codeFree Text DxA P NotesFree Text DxA P Notes:Right femoral neck fractureMechanical fallHistory of chronic microcytic anemiaHypokalemiaWill follow orthopedic recommendationDiscussed with at the bedsideAdvance care planning discuss/fullWill review patient's home medication at 1228RPT #: [id number] OF REPORT Aidee Friend MD- 5 [facility] PROVID[facility] REPORTREPORT#:[id number] REPORT STATUS: SignedDATE:06/26/24 TIME: 0654PATIENT: HERMELINDA JOHNSON UNIT #: [id number]#: [id number] [address] AGE: 64 SEX: F PCP PHYS: NO PRIMARY OR FAMILY PHYSICIANSERVICE AUTHOR: Vince Hoskins MDREP SRV REP SRV TM: 0654* ALL edits or amendments must be made on the electronic/computer document *HPI-Hip/Pelvis Prob/InjGeneralConfirmed Patient YesPatient Type Arrived by EMSInitial Greet Date/Time 06/26/24 0644PresentationChief Complaint Hip injury R, Hip pain RHx Obtained From Patient, EMSOnset Occurred TodayProgression since Onset ConstantCaused by AccidentalQuality PainfulRadiation Does not radiatePain/Sev: Onset SeverePain/Sev: Current SevereExacerbated by Weight-bearingRelieved by NothingPortions of this section were scribed by DACIA LR on 06/26/24 at 0853Review of SystemsROS StatementsAll systems rev neg except as marked. (see HPI)Portions of this section were scribed by DACIA LR on 06/26/24 at 0853Past Medical History - AdultAllergiesCoded Allergies:No Known Allergies (06/26/24)Calculated Suicide Risk (nurs) No riskReview of Nursing Notes ReviewedSmoking status for patients 13 years old or older: Never SmokerPortions of this section were scribed by DACIA LR on 06/26/24 at 0853Physical ExamVital SignsVital SignsFirst Documented: Result Date Time O2 Delivery Room air 06/26 0648 Pulse Ox 98 06/26 0742 B/P 132/75 02/23 0742 Temp 36.5 06/26 741 Pulse 91 06/26 741 Resp 18 06/26 741Last Documented: Result Date Time Pulse Ox 98 06/26 741 B/P 132/75 06/26 741 O2 Delivery Room air 06/26 741 Temp 36.5 06/26 741 Pulse 91 06/26 741 Resp 18 06/26 741Review of Vital Signs ReviewedFree Text PE NotesFree Text PE NotesGeneral: Awake, AlertMS Head: Atraumatic, NormocephalicEyes: PERRL, EOMIENT: Airway patent, Mucous membranes moistMS Neck: Supple, No meningismus, Full range of motionResp/Chest: Breath sounds NL, Breath sounds = bilat, No respiratory distress, Nochest tendernessCardiovascular: Heart rate NL, Regular rhythm, Heart sounds NLAbdomen/GI: Soft, Non-tenderSkin: Color NL, Warm, Dry, IntactMSK: Right hip tenderness to palpation, no deformity notedNeurologic: Oriented X3, Speech NL, No motor deficits, No sensory deficits, CNII - XII intactPortions of this section were scribed by DACIA LR on 06/26/24 at 0732Interpretation DiagnosticsLab Results InterpretationResultsLaboratory Tests06/26/24713:[Embedded Image Not Available]Laboratory Tests: 06/26 713 Chemistry Sodium (136 - 145 mmol/L) 143 Potassium (3.5 - 5.1 mmol/L) 3.4 L Chloride (98 - 107 mmol/L) 111 H Carbon Dioxide (20 - 31 mmol/L) 26 Anion Gap (5 - 16 mmol/L) 6 BUN (9 - 23 mg/dL) 14 Creatinine (0.55 - 1.02 mg/dL) 0.75 Est GFR (CKD-EPI) (>60 ml/min) 90 Glucose (70 - 139 mg/dL) 116 Calcium (8.3 - 10.6 mg/dL) 8.8 Total Bilirubin (0.2 - 1.1 mg/dL) 0.9 AST (8 - 33 U/L) 20 ALT (10 - 49 U/L) 16 Total Alk Phosphatase (46 - 116 U/L) 52 Total Protein (5.7 - 8.2 g/dL) 6.5 Albumin (3.2 - 4.8 g/dL) 4.1 Albumin/Globulin Ratio (0.9 - 1.9 g/dL) 1.7 Coagulation PT (9.0 - 12.0 SECONDS) 11.0 INR (0.9 - 1.2) 1.0 APTT (23 - 35 SECONDS) 24 Hematology WBC (4.8 - 10.8 K/MM3) 5.4 RBC (4.20 - 5.50 M/MM3) 4.17 L Hgb (12.0 - 16.0 G/DL) 8.5 L Hct (37.0 - 47.0 %) 29.1 L MCV (80 - 100 FL) 70 L MCH (27.0 - 32.0 PG) 20.4 L MCHC (32.0 - 37.0 G/DL) 29.2 L RDW (11.5 - 14.5 %) 24.1 H Plt Count (150 - 450 K/MM3) 291 MPV (9.6 - 12.0 FL) 11.3 Neut % (Auto) (45.0 - 75.0) 71.1 Neut # (Auto) (1.8 - 7.7 K/MM3) 3.9 Lymph # (Auto) (1.0 - 4.8 K/MM3) 1.1 Jay # (Auto) (0.2 - 1.0 K/MM3) 0.3 Eos # (Auto) (0.0 - 0.5 K/MM3) 0.1 Baso # (Auto) (0.0 - 0.2 K/MM3) 0.0 Immature Gran # (Auto) (0.01 - 0.02 K/MM3) 0.05 H Absolute Nucleated RBC (0 - 0 K/MM3) 0.00 Immature Gran % (0.1 - 0.3) 0.9 H Lymphocytes % (15.0 - 45.0) 20.4 Monocytes % (4.0 - 12.0) 5.7 Eosinophils % (0.0 - 4.0) 1.7 Basophils % (0.0 - 2.0) 0.2 Nucleated RBCs/100 WBC (0 /100WBCS) 0Recent Impressions:RADIOLOGY - XR HIP RIGHT W/PELVIS 2-3V 06/26 0650 Report Impression - Status: SIGNED Entered: 2024 0801IMPRESSION:Acute, nondisplaced fracture of the right femoral neck.Electronically signed by: Eric Ramesh MD 2024 07:59AM [facility] Workstation: [id number] By: DR.PASDA Charlene Ramesh,MDPortions of this section were scribed by DACIA LR on 06/26/24 at 0853Re-Evaluation MDMFree Text MDM NotesFree Text MDM [id number] female presents with right hip pain after falling out of bed today.She was found have a femoral fracture, so Orthopedics consulted, and patientadmitted to hospitalist for further monitoring and treatment.Additional TextPRESENTING PROBLEM: Independent history provided by: Patient and EMS64 year old female, with history of anemia, presents to the ED via EMS afterfalling out of bed this morning. Patient states she rolled over in bed when shefell and landed on her right hip. Patient was unable to ambulate afterwards.Denies any head strike or LOC. There are no other complaint reported.PHYSICAL EXAM: Full detailed physical exam documented in Focused PE section seenabove. Please refer to this section for further details.EXTERNAL RECORDS: Patient arrived by ambulance - reviewed EMS run sheets anddiscussed patient with EMS personnel. All pertinent aspects of patientspresentation and vital signs discussed with EMS personnel that transportedpatient.RISK ASSESSMENT: see RISK sectionINDEPENDENT INTERPRETATIONS: Laboratory tests have been ordered, withindependent interpretations of the results reviewed and considered in themedical decision making process by the ED physician.The imaging was independently viewed and interpreted by the radiologist. Theseinterpretations were reviewed by ED physicians and considered in medicaldecision making.Independent interpretation of EKG Interpreted by the ED PhysicianECG Documented in MUSE YesDate 2024Time 0723Rate 71Interpretation Normal rate, Normal sinus rhythm, No STEMI, Normal QRS, Normal STwaves, Normal T waves, Normal axis, Normal intervals, Adequate tracingSHARED DECISION MAKING: Admitted : All pertinent aspects of the patient'spresenting complaint, evaluation, and treatment plan have been discussed withthe patient and they are in agreement. Decisions were reached mutually throughshared decision making on plan to be admitted to the hospital for furtherevaluation.MDM: [...]Re-Evaluation/ProgressRe-Evaluation/Progress Time of Re-Eval 0843 Re-Eval Status Call returned: 0843. Vinicius Sen is covering at thistime and has assumed care of patient. There are no time-sensitive studiespending at this time.ED CourseMedication(s) OrderedMedication(s) Ordered:Cardiovascular Drugs Sig/Jonathan Start time Last Medication Dose Route Stop Time Status Admin Hydralazine HCl 5 MG Q6H PRN PRN 06/26 0900 AC IV 12/23 0901Central Nervous System Agents Sig/Jonathan Start time Last Medication Dose Route Stop Time Status Admin Hydromorphone HCl 0.5 MG Q4H PRN PRN 06/26 0900 AC 06/26 IV 12/23 0901 1053 Hydromorphone HCl 1 MG X1ED STA 06/26 0809 DC 06/26 IV 06/26 0810 0812 Fentanyl Citrate 50 MCG X1ED STA 06/26 0659 DC 06/26 IV 06/26 0700 0700 Fentanyl Citrate 50 MCG X1ED STA 06/26 0647 CAN IM 06/26 0648Electrolytic, Caloric, And Zoe Sig/Jonathan Start time Last Medication Dose Route Stop Time Status Admin Sodium Chloride 1,000 ML .[id number] 06/26 09 AC 06/26 IV 12/23 09 0950Gastrointestinal Drugs Sig/Jonathan Start time Last Medication Dose Route Stop Time Status Admin Docusate Sodium 100 MG BID PRN PRN 06/26 0900 AC PO 12/23 0901 Ondansetron HCl 4 MG Q4H PRN PRN 06/26 0900 AC IV 12/23 0901ConsultationConsultation Referral/Consult Name Eric Munroe MD Yard Assistant Called Orthopedic Yard Assistant [facility] CONSULT Requested Call Time 0832 Requested Call Date 06/26/24Differential DiagnosisDifferential Diagnosis Bursitis, Contusion, Fx femoral head, OsteoarthritisPortions of this section were scribed by DACIA LR on 06/26/24 at 0853Patient Discharge DepartureVital Signs/ConditionVital SignsFirst Documented: Result Date Time O2 Delivery Room air 06/26 0648 Pulse Ox 98 06/26 0742 B/P 132/75 06/26 0742 Temp 36.5 06/26 0742 Pulse 91 06/26 0742 Resp 18 06/26 0742Last Documented: Result Date Time Pulse Ox 98 06/26 741 B/P 132/75 06/26 07 O2 Delivery Room air 06/26 741 Temp 36.5 06/26 07 Pulse 91 06/26 0742 Resp 18 06/26 0742All vital signs available at the time of this entry have been reviewed.Condition StableClinical ImpressionClinical ImpressionPrimary Impression: Fracture of femoral headSecondary Impressions: Anemia, HypokalemiaDisposition DecisionHospitalize Hosp Physician Name Vinicius Garg MD [facility] Physician Hospitalist Request Time 0808 Request Date 06/26/24 )( Accepts Hospitalization Yes )( Reason for Hospitalizationsee above )( Accepted Time 08 )( Accepted Date 06/26/24 Call Information will see patient, agrees with eval, agrees with plan, PCP isunknown. Pt has [facility] [facility] insurance, which goes to [facility] group foradmission.Discharge/Care PlanCounseled Regarding Diagnosis, Lab results, Imaging studies, Need for admissionReferralsProvider Referral: NO PRIMARY OR FAMILY PHYSICIANSupervising Physician Note Scribe StatementGONDACIA NIXON, 06/26/24 0903, scribing for and in the presence of Dr.Andrew Aidee MD.Signed By: DACIA LR, 06/26/24 0903 Provider Scribed StatementI personally performed the services described in this documentation and reviewedthe documentation that was dictated to the scribe(s) in my presence, and itaccurately records my words and actions. Dr. Vince Hoskins MD, 06/26/24Portions of this section were scribed by DACIA LR on 06/26/24 at 0853 DACIA LR, 06/26/24;0903 scribing for and in the presence of Vince Hoskins MD.Signed By:DACIA LR, 06/26/24;0903I personally performed the services described in this documentation and reviewedthe documentation that was dictated to the scribe in my presence, and itaccurately records my words and actions. Vince Hoskins [place] , [facility], 06/26/24;1300. at 1300RPT #: [id number] OF REPORT Ludwig Ng MD- [facility] [place] [id number] [facility], [place] [address] REPORT NAME: CONSULTATION REPORTPATIENT'S NAME: HERMELINDA JOHNSON UNIT NO: [id number]: 64 AGE: 64 ACCOUNT NO: [id number] PHYS: Denise Reeves MD PT TYPE: DIS INADMISSION DATE: 06/26/24 LOCATION: D.SURGSDISCHARGE DATE:07/04/24DATE OF CONSULTATION: 2024ONSULTING PROVIDER:LAYLA Mendoza COMPLAINT:Right hip fracture.HISTORY OF PRESENT ILLNESS:A 64-year-old female, who was exiting to go visit the [place] on hervacation from [place]. Her and her went together, and she trippedand fell. She suffered a right hip fracture as per the emergency room staffand I was consulted for definitive treatment. Prior to this episode, thepatient has no disease or no ambulation that is impaired from disease. Shewalks without assistive device and has no serious underlying medicalconditions.PAST MEDICAL HISTORY:All documented on the chart.SOCIAL HISTORY:All documented on the chart.FAMILY HISTORY:All documented on the chart.SURGICAL HISTORY:All documented on the chart.MEDICATIONS:All documented on the chart.ALLERGIESAll documented on the chart.REVIEW OF SYSTEMS:All documented on the chart.PHYSICAL EXAMINATION:GENERAL: The patient is awake, alert. Her is holding her hand at thePATIENT NAME: HERMELINDA JOHNSON . They are pleasant to talk with.EXTREMITIES: The patient has her hip flexed up with her knee flexed and herfoot flat on the table as the position of most comfort. She is able to flexand extend her toes on command to her right foot. No signs of outward traumato bilateral lower extremities. Bilateral upper extremities she positionsfreely with her hand in space.IMAGING:X-ray examination shows a nondisplaced femoral neck fracture. This extendstoward the base of the femoral neck. She weighs 79 kg. Her vital signs areafebrile and stable.LABORATORY VALUES:Show chronic anemia 8.5 with normal coags and normal chemistry.ASSESSMENT AND PLAN:A 64-year-old female with acute fracture of her right proximal femur through asurgical neck. I believe this is a fracture that is amenable to fixationrather than replacement. I have explained this to the patient, but in the casewhere the fracture pattern is more suitable for arthroplasty, she would be atotal hip arthroplasty. The plan is for a sideplate and screw. She canambulate as tolerated following the surgery. She will likely need 5-10 daysbefore she can fly home in [place]. No underlying comorbidities to precludesurgery and Anesthesia has deemed her medically fit to move forward.Dictated By: Eric Munroe, MDDAS:MODLD: 2024 13:29:21 / Voice ID: [id number] / Job ID: [id number] by Eric Munroe MD On 08/15/2024 01:27:49 PMReport ID: [id number] at 0127PATIENT NAME: HERMELINDA JOHNSON Problems Fracture of head of femur Onset:26-Jun-2024 Anemia Onset:26-Jun-2024 Hypokalemia Onset:26-Jun-2024 Mental Status Cognitive function finding 26-Jun-2024 Functional Status Functional finding 04-Jul-2024 Allergies and Adverse Reactions No Known Allergies(Allergy) Onset: 26-Jun-2024 Medications acetaminophen 325 MG / oxyCODONE hydrochloride 5 MG Oral Tablet;1 TABLET PO Q6H PRN Start:02-Jul-2024 Comments:1 TAB PO Q6H PRN As Needed for Pain Scale 7-10 (Use 1st) rivaroxaban 10 MG Oral Tablet;10 MILLIGRAM PO C DIN Start:02-Jul-2024 Comments:10 MG PO C DIN sodium chloride 9 MG/ML Injectable Solution;[id number] Administration Instructions:x 5 dosesStablility: 24 hr = Room Temp , 7 days = Refrig CHARLES Start:19-Phe-1834Yxe: 025 Comments:[id number] Administration Instructions:x 5 dosesStablility: 24 hr = Room Temp , 7 days = Refrig HYDROmorphone HCL 0.5 MG/0.5 ML SYRINGE;0.5 MILLIGRAM Q4H PRN Quantity:1 Sheikh Denise Ng MD Start:74-Idc-2084Vsi: Status:Discontinued Comments:[id number] Administration Instructions:(HIGH RISK DRUG) acetaminophen 325 MG / oxyCODONE hydrochloride 5 MG Oral Tablet [Percocet];1 TABLET Q4H PRN Quantity:1 Sheikh Denise Ng MD Start:98-Ebb-7536Bog: 5 Status:Discontinued Comments:[id number] Administration Instructions:Do not exceed 4 gm ACETAMINOPHEN per day (contains 325 mgper tab). [id number] 200 ACTUAT albuter ol 0.09 MG/ACTUAT Metered Dose Inhaler [ProAir];BID Start:27-Jun-2024 Comments:BID CEFAZOLIN SODIUM 2 GM VIAL;2 GRAM Q8HR Quantity:1 Ludwig Ng MD Start:58-Jhk-1492Nsl: Comments:[id number] Administration Instructions:Reconstitute with 20 mL SWI. IV push over 6 mins mupirocin 0.02 MG/MG Topical Ointment;1 APPLICATION BID Quantity:Akash Sheikh Denise Ng MD Start:95-Fzd-7827Jqr: Comments:[id number] Administration Instructions:1 APPLIC = 1 GM GIVE FIRST DOSE NOW PER MRSA REDUCTION PROTOCOL X 5 DAYS Use this for Bactroban Nasal Applications-apply ointmentto cotton swab) rivaroxaban 10 MG Oral Table t [Xarelto];10 MILLIGRAM C DIN Quantity:1 Ludwig Ng MD Start:99-Hwx-8025Ndc: Status:Discontinued Comments:[id number] Administration Instructions:*Do NOT Split, but tabs may be Crushed*Xarelto 15 mg and 20 mg tablets should be taken with food.The 10 mg tablet can be taken with or without food. [id number] 200 ACTUAT albuter ol 0.09 MG/ACTUAT Metered Dose Inhaler [Proventil];Provider Administration Instructions:If the patient is in isolation or COVID-19 PUI or +, MDIshould stay with patient. Quantity:1 Start:26-Jun-2024 Status:Discontinued Comments:Provider Administration Instructions:If the patient is in isolation or COVID-19 PUI or +, MDIshould stay with patient. lidocaine hydrochloride 0.02 MG/MG Topical Gel [Glydo] Quantity:1 Start:26-Jun-2024 Status:Discontinued [id number] 200 ACTUAT albuter ol 0.09 MG/ACTUAT Metered Dose Inhaler [Proventil];Provider Administration Instructions:If the patient is in isolation or COVID-19 PUI or +, MDIshould stay with patient. Quantity:1 Start:26-Jun-2024 Status:Discontinued Comments:Provider Administration Instructions:If the patient is in isolation or COVID-19 PUI or +, MDIshould stay with patient. 1 ML ePHEDrine sulfate 50 MG /ML Injection;Provider Administration Instructions: N ote: IV administration of this drug isrestricted by policy to ICU areas only Quantity:1 Start:26-Jun-2024 Status:Discontinued Comments:Provider Administration Instructions: N ote: IV administration of this drug isrestricted by policy to ICU areas only 1 ML dexAMETHasone phosphate 4 MG/ML Injection;Provider Administration Instructions:Please notify Pharmacy to change to ORAL therapywhen Patient can tolerate the oral medication. Quantity:1 Start:26-Jun-2024 Status:Discontinued Comments:Provider Administration Instructions:Please notify Pharmacy to change to ORAL therapywhen Patient can tolerate the oral medication. ondansetron 2 MG/ML Injectab le Solution [Zofran];Provider Administration Instructions:OBTAIN FROM [employer] FOR ALL JONATHAN AND PRN DOSES!!Single doses may be administered IV Push undiluted over atleast 30 seconds preferably over 2 to 5 minutes Quantity:1 Start:26-Jun-2024 Status:Discontinued Comments:Provider Administration Instructions:OBTAIN FROM [employer] FOR ALL JONATHAN AND PRN DOSES!!Single doses may be administered IV Push undiluted over atleast 30 seconds preferably over 2 to 5 minutes 2 ML metoclopramide 5 MG/ML Injection;Provider Administration Instructions:Please notify Pharmacy when to change to Oral routewhen Patient can tolerate oral medications. Quantity:1 Start:26-Jun-2024 Status:Discontinued Comments:Provider Administration Instructions:Please notify Pharmacy when to change to Oral routewhen Patient can tolerate oral medications. 2 ML dexmedeTOMIDine 0.1 MG/ ML Injection [Precedex] Quantity:1 Start:26-Jun-2024 Status:Discontinued 10 ML tranexamic acid 100 MG /ML Injection [Cyklokapron];Provider Administration Instructions:Max Admin rate of 100 mg/minute Quantity:1 Start:26-Jun-2024 Status:Discontinued Comments:Provider Administration Instructions:Max Admin rate of 100 mg/minute ceFAZolin 1000 MG Injection;Provider Administration Instructions:Reconstitute with 10 mL SWI or NS. IV push over 3-5 mins Quantity:1 Start:26-Jun-2024 Status:Discontinued Comments:Provider Administration Instructions:Reconstitute with 10 mL SWI or NS. IV push over 3-5 mins 1 ML HYDROmorphone hydrochloride 2 MG/ML Cartridge;Provider Administration Instructions: Visually inspect confirm cartridge volume before use (HIGH RISK DRUG) Quantity:1 Start:26-Jun-2024 Status:Discontinued Comments:Provider Administration Instructions: Visually inspect confirm cartridge volume before use (HIGH RISK DRUG) 20 ML propofol 10 MG/ML Injection [Diprivan];Provider Administration Instructions:* Discard tubing and any unused portion after12 hours. (USE ORIGINAL CONTAINER ONLY, CHANGESET EMULSION Q 6 H IF TRANSFERRED TO ANOTHERCONTAINER)CAUTION: due to short half-life of propofol, please Quantity:1 Start:26-Jun-2024 Status:Discontinued Comments:Provider Administration Instructions:* Discard tubing and any unused portion after12 hours. (USE ORIGINAL CONTAINER ONLY, CHANGESET EMULSION Q 6 H IF TRANSFERRED TO ANOTHERCONTAINER)CAUTION: due to short half-life of propofol, please midazolam 1 MG/ML Injectable Solution;Provider Administration Instructions: No te: IV INFUSION of this drug isrestricted by policy to ICU anddesignated procedural areas Quantity:1 Start:26-Jun-2024 Comments:Provider Administration Instructions: No te: IV INFUSION of this drug isrestricted by policy to ICU anddesignated procedural areas rocuronium bromide 10 MG/ML Injectable Solution;Provider Administration Instructions: Vented Patients Only %%%%% 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 %%%%%%Discontinue paralytic upon extubation Note : IV administration of this drug isrestricted by policy to ICU areas only Quantity:1 Start:26-Jun-2024 Comments:Provider Administration Instructions: Vented Patients Only %%%%% 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 %%%%%%Discontinue paralytic upon extubation Note : IV administration of this drug isrestricted by policy to ICU areas only lidocaine hydrochloride 10 MG/ML Injectable Solution Quantity:1 Start:26-Jun-2024 Status:Discontinued 1 ML hydrALAZINE hydrochlori de 20 MG/ML Injection;5 MILLIGRAM PACU PRN Quantity:1 Brayden Craft MD Start:48-Bnp-7449Wcn: 5 Comments:[id number] Administration Instructions:*PACU order - Expires in 6 hours or at discharge from PACU* ipratropium bromide 0.2 MG/M L Inhalation Solution;0.5 MILLIGRAM PACU PRN Quantity:1 Brayden Craft MD Start:14-Ikz-6452Zoa: 5 Comments:[id number] Administration Instructions:*PACU order - Expires in 6 hours or at discharge from PACU*[0.5 mg in 2.5 ml] 1 ML meperidine hydrochlorid e 25 MG/ML Injection;12.5 MILLIGRAM PACU PRN Quantity:1 Brayden Craft MD Start:98-Wen-3587Lev: 5 Comments:[id number] Administration Instructions:*PACU order - Expires in 6 hours or at discharge from PACU*once as needed for shivering may repeat X 1 after 10 minutes 1 ML HYDROmorphone hydrochloride 2 MG/ML Cartridge;0.25 MILLIGRAM PACU PRN Quantity:1 Brayden Craft MD Start:49-Pdo-1395Lmy: 5 Comments:[id number] Administration Instructions:*PACU order - Expires in 6 hours or at discharge from PACU* 1 ML ePHEDrine sulfate 50 MG /ML Injection;5 MILLIGRAM PACU PRN Quantity:1 Brayden Craft MD Start:87-Yen-7996Yot: 5 Comments:[id number] Administration Instructions:*PACU order - Expires in 6 hours or at discharge from PACU* HYDROmorphone HCL 0.5 MG/0.5 ML SYRINGE;0.5 MILLIGRAM PACU PRN Quantity:1 Brayden Craft MD Start:87-Tfw-3464Tos: 5 Comments:[id number] Administration Instructions:*PACU order - Expires in 6 hours or at discharge from PACU* 1 ML naloxone hydrochloride 0.4 MG/ML Injection;0.1 MILLIGRAM Q2M PRN Quantity:1 Brayden Craft MD Start:85-Osh-6951Xwi: 5 Comments:[id number] Administration Instructions:*PACU order - Expires in 6 hours or at discharge from PACU* 1 ML naloxone hydrochloride 0.4 MG/ML Injection;0.4 MILLIGRAM PRN Quantity:1 Brayden Craft MD Start:94-Utn-0433Xic: 5 Comments:[id number] Administration Instructions:*PACU order - Expires in 6 hours or at discharge from PACU* ondansetron 2 MG/ML Injectab le Solution [Zofran];4 MILLIGRAM PACU PRN Quantity:1 Brayden Craft MD Start:99-Mac-6017Jmj: 5 Comments:[id number] Administration Instructions:*PACU order - Expires in 6 hours or at discharge from PACU*If unable to take oralOndansetron should be the first anti-nausea/vomitingmedication given unless it was given within the last 6 hours albuterol 5 MG/ML Inhalation Solution;2.5 MILLIGRAM PACU PRN Quantity:1 Brayden Craft MD Start:21-Wig-9730Wlm: 5 Comments:[id number] Administration Instructions:*PACU order - Expires in 6 hours or at discharge from PACU 5 mg/ml concentrate DOSE: dilute 2.5 mg to 3 ml with NSRN - For new written orders, [facility] - 4 ML labetalol hydrochloride 5 MG/ML Cartridge;5 MILLIGRAM PACU PRN Quantity:1 Brayden Craft MD Start:49-Zzj-2195Jke: 5 Comments:[id number] Administration Instructions:*PACU order - Expires in 6 hours or at discharge from PACU* acetaminophen 650 MG Rectal Suppository;650 MILLIGRAM PACU PRN Quantity:1 Brayden Craft MD Start:74-Lnn-4210Kpa: 5 Comments:[id number] Administration Instructions:*PACU order - Expires in 6 hours or at discharge from PACU*maximum ACETAMINOPHEN total dose not to exceed 4Gm per day ! midazolam 1 MG/ML Injectable Solution;1 MILLIGRAM PACU PRN Quantity:1 Brayden Cratf MD Start:78-Mqi-2029Pwg: 5 Comments:[id number] Administration Instructions:*PACU order - Expires in 6 hours or at discharge from PACU* acetaminophen 325 MG Oral Tablet [Tylenol];650 MILLIGRAM PACU PRN Quantity:2 Brayden Craft MD Start:46-Mlt-4370Esd: 5 Comments:[id number] Administration Instructions:*PACU order - Expires in 6 hours or at discharge from PACU*maximum ACETAMINOPHEN total dose not to exceed 4Gm per day ! fentaNYL citrate 50 MCG/ML SYRINGE;50 MICROGRAM PACU PRN Quantity:1 Brayden Craft MD Start:85-Muw-4975Dsi: 5 Comments:[id number] Administration Instructions:*PACU order - Expires in 6 hours or at discharge from PACU* 2 ML fentaNYL 0.05 MG/ML Injection;25 MICROGRAM PACU PRN Quantity:1 Brayden Craft MD Start:53-Qhr-9034Mgv: 5 Comments:[id number] Administration Instructions:*PACU order - Expires in 6 hours or at discharge from PACU* acetaminophen 325 MG / HYDROcodone bitartrate 5 MG Oral Tablet;1 TABLET PACU PRN Quantity:1 Metriyakool Laura Craft MD Start:39-Rte-5037Rad: 5 Comments:[id number] Administration Instructions:*PACU orders in 6 hours or at discharge from PACU* 1 ML hydrALAZINE hydrochlori de 20 MG/ML Injection;5 MILLIGRAM Q6H PRN Quantity:1 Sheikh Denise Ng MD Start:92-Oik-4461Faw: 5 Status:Discontinued Comments:[id number] HYDROmorphone HCL 0.5 MG/0.5 ML SYRINGE;0.5 MILLIGRAM Q4H PRN Quantity:1 Sheikh Denise Ng MD Start:53-Fnb-0109Nav: 5 Status:Discontinued Comments:[id number] Administration Instructions:(HIGH RISK DRUG) ondansetron 2 MG/ML Injectab le Solution [Zofran];4 MILLIGRAM Q4H PRN Quantity:1 Sheikh Denise Ng MD Start:85-Mbs-5178Kgc: 5 Status:Discontinued Comments:[id number] Administration Instructions:OBTAIN FROM PYXIS FOR ALL JONATHAN AND PRN DOSES!!Single doses may be administered IV Push undiluted over atleast 30 seconds preferably over 2 to 5 minutes docusate sodium 100 MG Oral Capsule;100 MILLIGRAM BID PRN Quantity:1 Sheikh Denise Ng MD Start:26-Ttg-1552Isi: 5 Status:Discontinued Comments:[id number] Administration Instructions:*Do NOT Crush, Split, or Open* sodium chloride 9 MG/ML Injectable Solution Sheikh Denise Ng MD Start:91-Wsj-0653Aln: 5 Status:Discontinued HYDROmorphone HCL 1 MG/ML SYRINGE;1 MILLIGRAM X1ED Quantity:1 Aidee Friend MD Start:51-Lhi-3131Rld: 5 Comments:[id number] Administration Instructions:(HIGH RISK DRUG) fentaNYL citrate 50 MCG/ML SYRINGE;50 MICROGRAM X1ED Quantity:1 Aidee Friend MD Start:13-Akz-2663Elk: Comments:[id number] Administration Instructions:*All PAIN SCALE assessments must be documented in [facility] Note: IV administration of this drug isrestricted by policy to ICU anddesignated procedural areas Procedures Gait Training/Functional Amb ulation Treatment using Assistive, Adaptive, Supportive or Protective Equipment Date:28-Jun-2024 Reposition Right Upper Femur with Internal Fixation Device, Open Approach Date:26-Jun-2024 RT HIP AP & LATERALResult:[facility] ER [facility] Name: [facility] Phys: Vince Hoskins MD [address] : 1960 Age: 64 Sex: [place] [address] Acct: [id number] Loc: YI PHONE #: Exam Date: 2024 Status: PRE ER FAX #: Radiology No: Unit No: [id number] EXAMS: REASON FOR EXAM: CPT CODE: [id number] XR HIP RIGHT W/PELVIS 2 fall/ttauma [id number] EXAM DESCRIPTION: XR HIP RIGHT W/PELVIS 2-3V RadLex: XR HIP 2 OR MORE VIEWS RIGHT WITH PELVIS Views: 3 CLINICAL HISTORY: fall/ttauma; FALL HIP PAIN FELL OUT OF BED THIS AM; COMPARISON: None. FINDINGS: Acute, nondisplaced fracture is present involving the right femoral neck. Joint alignment is maintained. Moderate degenerative changes are present involving the hips bilaterally. No evidence of AVN or erosion . The pelvic ring is intact. Mild degenerative changes involving the bilateral SI joints and pubic symphysis. No evidence of diastases. IMPRESSION: Acute, nondisplaced fracture of the right femoral neck. Electronically signed by: Eric Ramesh MD 2024 07:59 AM [facility] at 0759 Reported and signed by: Eric Ramesh MD CC: Vince Hoskins MD Dictated Date/Time: 2024 (0759)Tech: ARIEL CACERES Fluoro Time: DAP (Gy m2): Air Kerma: CTDI: CTDI/DLP: Trnscrbd Dt/Tm: 2024 (0759) PWS Electronic Signature Date/Time: 2024 (0759)Orig Print D/T: S: 2024 (0801) BATCH NO: N/A PAGE 1 Signed Report Date:26-Jun-2024 Status:Completed Social History Smoking Status Never smoked tobacco Recorded: 26-Jun-2024 Results CBC W/O AUTO DIFF Ordered On:04-Jul-2024 01:27 WGUGUYUSIM65.3%(Low) Range:37%- 47% HEMOGLOBIN9.4g/dL(Low) Range:12g /dL-16g/dL MEAN CELL HGB21.4pg(Low) Range:2 7pg-32pg MEAN CELL HGB BQQGMUBMZZJFM19.2g/dL(Low) Range:32g/dL-37g/dL MEAN CELL AMCZHO66aH(Low) Range: 80fL-100fL MEAN PLATELET YWVYTU97.0fL(Normal) Range:9.6fL-12fL NRBCS #0.0010*3/uL(Normal) Range :010*3/uL-010*3/uL NRBC %0{/100_WBCs} Range:0 /100W BCS PLATELET VHYPX66650*3/uL(Normal) Range:15924*3/uL-61051*3/uL RED BLOOD CELL4.40{M/MM3}(Normal) Range:4.2{M/MM3}-5.5{M/MM3} RED CELL DISTRIBUTIO N WIDTH27.9%(High) Range:11.5%-14.5% WHITE BLOOD COUNT (WBC)7.110*3/uL(Normal) Range:4.810*3/uL-10.810*3/uL BASIC METABOLIC PROFILE (CCI) Ordered On:04-Jul-2024 01:41 BLOOD UREA NITROGEN (BUN)13mg/dL(Normal) Range:9mg/dL-23mg/dL CALCIUM TOTAL8.8mg/dL(Normal) Ra nge:8.3mg/dL-10.6mg/dL CHLORIDE YKN499iqdk/L(Normal) Ra nge:98mmol/L-107mmol/L CARBON DIOXIDE PRS61dlxy/L(Normal) Range:20mmol/L-31mmol/L CREATININE BLD0.73mg/dL(Normal) Range:0.55mg/dL-1.02mg/dL ESTIMATED IZG46sI/min Range:60mL /min-0 Comments:The estimated GFR was calculated using the CKD-EPI Requation, which provides a azb-jpgb-wqcgf estimate of GFR,based on creatinine, age, and sex. The estimated GFR (eGFR)has not been validated for patients < 18 years of age. ANION VQO6jiwn/L(Normal) Range:5 mmol/L-16mmol/L GLUCOSE JJBDQR578kx/dL(Normal) R flaco:70mg/dL-139mg/dL POTASSIUM BLD4.6mmol/L(Normal) R flaco:3.5mmol/L-5.1mmol/L SODIUM JKF242gbpe/L(Normal) Rang e:136mmol/L-145mmol/L CBC W/O AUTO DIFF Ordered On:03-Jul-2024 03:02 ZUSHRUNMRO35.4%(Low) Range:37%- 47% HEMOGLOBIN9.1g/dL(Low) Range:12g /dL-16g/dL MEAN CELL HGB21.0pg(Low) Range:2 7pg-32pg MEAN CELL HGB AADDWPYRLGRYA63.1g/dL(Low) Range:32g/dL-37g/dL MEAN CELL GPJYNE02eS(Low) Range: 80fL-100fL MEAN PLATELET CFTFGM07.2fL(Normal) Range:9.6fL-12fL NRBCS #0.0010*3/uL(Normal) Range :010*3/uL-010*3/uL NRBC %0{/100_WBCs} Range:0 /100W BCS PLATELET TFFBI34948*3/uL(Normal) Range:58584*3/uL-00336*3/uL RED BLOOD CELL4.34{M/MM3}(Normal) Range:4.2{M/MM3}-5.5{M/MM3} RED CELL DISTRIBUTIO N WIDTH27.3%(High) Range:11.5%-14.5% WHITE BLOOD COUNT (WBC)6.510*3/uL(Normal) Range:4.810*3/uL-10.810*3/uL BASIC METABOLIC PROFILE (CCI) Ordered On:03-Jul-2024 03:21 BLOOD UREA NITROGEN (BUN)15mg/dL(Normal) Range:9mg/dL-23mg/dL CALCIUM TOTAL9.2mg/dL(Normal) Ra nge:8.3mg/dL-10.6mg/dL CHLORIDE ZEZ732lpkw/L(Normal) Ra nge:98mmol/L-107mmol/L CARBON DIOXIDE OVI67josu/L(Normal) Range:20mmol/L-31mmol/L CREATININE BLD0.78mg/dL(Normal) Range:0.55mg/dL-1.02mg/dL ESTIMATED HZV74hX/min Range:60mL /min-0 Comments:The estimated GFR was calculated using the CKD-EPI 2021CRequation, which provides a cpd-hajs-ewylu estimate of GFR,based on creatinine, age, and sex. The estimated GFR (eGFR)has not been validated for patients < 18 years of age. ANION TTB92ysdq/L(Normal) Range: 5mmol/L-16mmol/L GLUCOSE DEUTWL51kn/dL(Normal) Ra nge:70mg/dL-139mg/dL POTASSIUM BLD4.7mmol/L(Normal) R flaco:3.5mmol/L-5.1mmol/L SODIUM INQ117bnmn/L(Normal) Rang e:136mmol/L-145mmol/L BASIC METABOLIC PROFILE (CCI) Ordered On:02-Jul-2024 02:07 CARBON DIOXIDE ECT84tueg/L(Normal) Range:20mmol/L-31mmol/L BLOOD UREA NITROGEN (BUN)11mg/dL(Normal) Range:9mg/dL-23mg/dL SODIUM LZK064ltsk/L(Normal) Rang e:136mmol/L-145mmol/L GLUCOSE NWVRNB97rz/dL(Normal) Ra nge:70mg/dL-139mg/dL POTASSIUM BLD4.3mmol/L(Normal) R flaco:3.5mmol/L-5.1mmol/L ESTIMATED JKX841xA/min Range:60m L/min-0 Comments:The estimated GFR was calculated using the CKD-EPI 202Requation, which provides a ddo-qpgu-tlhvj estimate of GFR,based on creatinine, age, and sex. The estimated GFR (eGFR)has not been validated for patients < 18 years of age. CREATININE BLD0.63mg/dL(Normal) Range:0.55mg/dL-1.02mg/dL CHLORIDE JQV925xxvi/L(Normal) Ra nge:98mmol/L-107mmol/L ANION AOR7dbgh/L(Normal) Range:5 mmol/L-16mmol/L CALCIUM TOTAL8.7mg/dL(Normal) Ra nge:8.3mg/dL-10.6mg/dL CBC W/O AUTO DIFF Ordered On:02-Jul-2024 02:08 EIHWVDAIEC71.1%(Low) Range:37%- 47% HEMOGLOBIN9.3g/dL(Low) Range:12g /dL-16g/dL MEAN CELL HGB21.6pg(Low) Range:2 7pg-32pg MEAN CELL HGB NRGQIRYGOYEZE64.0g/dL(Low) Range:32g/dL-37g/dL MEAN CELL GBZNWU62tE(Low) Range: 80fL-100fL MEAN PLATELET VOLUME TEST NOT PERFORMEDfL Range:9.6fL-12fL NRBCS #0.0210*3/uL(High) Range:0 10*3/uL-010*3/uL NRBC %0{/100_WBCs} Range:0 /100W BCS PLATELET GUOFP54874*3/uL(Normal) Range:15812*3/uL-58374*3/uL RED BLOOD CELL4.30{M/MM3}(Normal) Range:4.2{M/MM3}-5.5{M/MM3} RED CELL DISTRIBUTIO N WIDTH26.0%(High) Range:11.5%-14.5% WHITE BLOOD COUNT (WBC)6.510*3/uL(Normal) Range:4.810*3/uL-10.810*3/uL RETICULOCYTES Ordered On:30-Jun-2024 Comments: Is this an add on test for a previously collected specimen?Yes 30-Jun-2024 07:42 IMMATURE RETICULOCYT E RTFPVFCN05.4%(High) Range:2%-16% RETICULOCYTE ICIZSVKX63.6{X10E9/L}(Normal) Range:15{X10E9/L}-75{X10E9/L} RETICULOCYTE COUNT1.3%(Normal) R flaco:0.5%-1.5% IRON STUDIES (WITH TIBC) Ordered On:30-Jun-2024 Comments:Is this an add on test for a previously collected specimen?Yes 30-Jun-2024 08:03 BRSE20jo/dL(Low) Range:50ug/dL -170ug/dL IRON SATURATION4%(Low) Range:20% -50% IRON BINDING (TIBC)331ug/dL(Normal) Range:250ug/dL-425ug/dL FERRITIN Ordered On:30-Jun-2024 Comments: Is this an add on test for a previously collected specimen?Yes 30-Jun-2024 08:03 FERRITIN9.1ng/mL(Normal) Range :7.3ng/mL-270.7ng/mL VITAMIN B12 Ordered On:30-Jun-2024 Comments: Is this an add on test for a previously collected specimen?Yes 30-Jun-2024 08:04 VITAMIN X50747ni/mL(Normal) Ra nge:211pg/mL-911pg/mL FOLATE (FOLIC ACID) Ordered On:30-Jun-2024 Comme nts:Is this an add on test for a previously collected specimen?Yes 30-Jun-2024 08:04 FOLATE (FOLIC ACID)16.03ng/mL Range:5.38ng/mL-0 CBC W/AUTO DIFFERENTIAL Ordered On:30-Jun-2024 06:31 BASOPHIL #0.010*3/uL(Normal) R flaco:010*3/uL-0.210*3/uL BASOPHIL %0.6(Normal) Range:0-2 EOSINOPHIL #0.310*3/uL(Normal) R flaco:010*3/uL-0.510*3/uL EOSINOPHIL %4.4(High) Range:0-4 XPYGZOJSKE17.4%(Low) Range:37%-4 7% HEMOGLOBIN9.1g/dL(Low) Range:12g /dL-16g/dL IMMATURE GRANULOCYTE S %0.3(Normal) Range:0.1-0.3 IMMATURE GRANULOCYTE S #0.0210*3/uL(Normal) Range:0.0110*3/uL-0.0210*3/uL LYMPHOCYTE #1.810*3/uL(Normal) R flaco:110*3/uL-4.810*3/uL LYMPHOCYTE %28.1(Normal) Range:1 5-45 MEAN CELL HGB20.6pg(Low) Range:2 7pg-32pg MEAN CELL HGB QQLVGWOVMRQXR77.1g/dL(Low) Range:32g/dL-37g/dL MEAN CELL ERULOL40wT(Low) Range: 80fL-100fL MONOCYTE #0.610*3/uL(Normal) Ran ge:0.210*3/uL-110*3/uL MONOCYTE %9.2(Normal) Range:4-12 MEAN PLATELET TKREWO84.6fL(Normal) Range:9.6fL-12fL NEUTROPHILS #3.810*3/uL(Normal) Range:1.810*3/uL-7.710*3/uL NEUTROPHILS %57.4(Normal) Range: 45-75 NRBCS #0.0010*3/uL(Normal) Range :010*3/uL-010*3/uL NRBC %0{/100_WBCs} Range:0 /100W BCS PLATELET ARXOZ01334*3/uL(Normal) Range:24096*3/uL-96091*3/uL RED BLOOD CELL4.42{M/MM3}(Normal) Range:4.2{M/MM3}-5.5{M/MM3} RED CELL DISTRIBUTIO N WIDTH24.6%(High) Range:11.5%-14.5% WHITE BLOOD COUNT (WBC)6.510*3/uL(Normal) Range:4.810*3/uL-10.810*3/uL CBC W/O AUTO DIFF Ordered On:29-Jun-2024 04:13 YIOITMRBRU53.6%(Low) Range:37% -47% HEMOGLOBIN7.0g/dL(Low) Range:12g /dL-16g/dL MEAN CELL HGB19.7pg(Low) Range:2 7pg-32pg MEAN CELL HGB QBMIINDBCSDJG94.3g/dL(Low) Range:32g/dL-37g/dL MEAN CELL HGJDVZ66lO(Low) Range: 80fL-100fL MEAN PLATELET TEBAPL87.2fL(Normal) Range:9.6fL-12fL NRBCS #0.0010*3/uL(Normal) Range :010*3/uL-010*3/uL NRBC %0{/100_WBCs} Range:0 /100W BCS PLATELET WDLSH62814*3/uL(Normal) Range:26779*3/uL-63322*3/uL RED BLOOD CELL3.55{M/MM3}(Low) R flaco:4.2{M/MM3}-5.5{M/MM3} RED CELL DISTRIBUTIO N WIDTH23.7%(High) Range:11.5%-14.5% WHITE BLOOD COUNT (WBC)7.510*3/uL(Normal) Range:4.810*3/uL-10.810*3/uL BASIC METABOLIC PROFILE (CCI) Ordered On:29-Jun-2024 04:26 BLOOD UREA NITROGEN (BUN)10mg/dL(Normal) Range:9mg/dL-23mg/dL CALCIUM TOTAL8.9mg/dL(Normal) Ra nge:8.3mg/dL-10.6mg/dL CHLORIDE PBI589wdsr/L(High) Rang e:98mmol/L-107mmol/L CARBON DIOXIDE SVE96wsmr/L(Normal) Range:20mmol/L-31mmol/L CREATININE BLD0.58mg/dL(Normal) Range:0.55mg/dL-1.02mg/dL ESTIMATED PWG775aX/min Range:60m L/min-0 Comments:The estimated GFR was calculated using the CKD-EPI 202Requation, which provides a oom-hiac-grszj estimate of GFR,based on creatinine, age, and sex. The estimated GFR (eGFR)has not been validated for patients < 18 years of age. ANION PXI50ngcw/L(Normal) Range: 5mmol/L-16mmol/L GLUCOSE HETXAY40bt/dL(Normal) Ra nge:70mg/dL-139mg/dL POTASSIUM BLD4.1mmol/L(Normal) R flaco:3.5mmol/L-5.1mmol/L SODIUM SOW534jenr/L(Normal) Rang e:136mmol/L-145mmol/L BASIC METABOLIC PROFILE (CCI) Ordered On:28-Jun-2024 04:26 BLOOD UREA NITROGEN (BUN)12mg/dL(Normal) Range:9mg/dL-23mg/dL CALCIUM TOTAL8.7mg/dL(Normal) Ra nge:8.3mg/dL-10.6mg/dL CHLORIDE DXL073ftys/L(Normal) Ra nge:98mmol/L-107mmol/L CARBON DIOXIDE IJN70turf/L(Normal) Range:20mmol/L-31mmol/L CREATININE BLD0.66mg/dL(Normal) Range:0.55mg/dL-1.02mg/dL ESTIMATED KSZ80yO/min Range:60mL /min-0 Comments:The estimated GFR was calculated using the CKD-EPI 2021CRequation, which provides a lal-ielx-aouml estimate of GFR,based on creatinine, age, and sex. The estimated GFR (eGFR)has not been validated for patients < 18 years of age. ANION DKW7zbml/L(Normal) Range:5 mmol/L-16mmol/L GLUCOSE BJPKZV42qo/dL(Normal) Ra nge:70mg/dL-139mg/dL POTASSIUM BLD4.0mmol/L(Normal) R flaco:3.5mmol/L-5.1mmol/L SODIUM LYF355yrrb/L(Normal) Rang e:136mmol/L-145mmol/L CBC W/O AUTO DIFF Ordered On:28-Jun-2024 04:43 CKTHRLZKEY71.6%(Low) Range:37% -47% HEMOGLOBIN8.1g/dL(Low) Range:12g /dL-16g/dL MEAN CELL HGB20.6pg(Low) Range:2 7pg-32pg MEAN CELL HGB SGIGQFBFDPMPL87.3g/dL(Low) Range:32g/dL-37g/dL MEAN CELL KFEQZD98pQ(Low) Range: 80fL-100fL MEAN PLATELET VOLUME TEST NOT PERFORMEDfL Range:9.6fL-12fL NRBCS #0.0010*3/uL(Normal) Range :010*3/uL-010*3/uL NRBC %0{/100_WBCs} Range:0 /100W BCS PLATELET JQBNC66562*3/uL(Normal) Range:27440*3/uL-63809*3/uL RED BLOOD CELL3.93{M/MM3}(Low) R flaco:4.2{M/MM3}-5.5{M/MM3} RED CELL DISTRIBUTIO N WIDTH23.9%(High) Range:11.5%-14.5% WHITE BLOOD COUNT (WBC)9.410*3/uL(Normal) Range:4.810*3/uL-10.810*3/uL BASIC METABOLIC PROFILE (CCI) Ordered On:27-Jun-2024 05:14 BLOOD UREA NITROGEN (BUN)13mg/dL(Normal) Range:9mg/dL-23mg/dL CALCIUM TOTAL8.9mg/dL(Normal) Ra nge:8.3mg/dL-10.6mg/dL CHLORIDE VGB513lbmt/L(High) Rang e:98mmol/L-107mmol/L CARBON DIOXIDE VPD48mrgl/L(Normal) Range:20mmol/L-31mmol/L CREATININE BLD0.67mg/dL(Normal) Range:0.55mg/dL-1.02mg/dL ESTIMATED APC42aN/min Range:60mL /min-0 Comments:The estimated GFR was calculated using the CKD-EPI 2021CRequation, which provides a wzh-ywxx-ioewb estimate of GFR,based on creatinine, age, and sex. The estimated GFR (eGFR)has not been validated for patients < 18 years of age. ANION VLF38ixgt/L(Normal) Range: 5mmol/L-16mmol/L GLUCOSE FYPFIC157ov/dL(Normal) R flaco:70mg/dL-139mg/dL POTASSIUM BLD4.5mmol/L(Normal) R flaco:3.5mmol/L-5.1mmol/L SODIUM BOE235vuct/L(Normal) Rang e:136mmol/L-145mmol/L CBC W/AUTO DIFFERENTIAL Ordered On:27-Jun-2024 05:24 BASOPHIL #0.010*3/uL(Normal) R flaco:010*3/uL-0.210*3/uL BASOPHIL %0.1(Normal) Range:0-2 EOSINOPHIL #0.010*3/uL(Normal) R flaco:010*3/uL-0.510*3/uL EOSINOPHIL %0.0(Normal) Range:0- 4 PEKJFMTUMV71.1%(Low) Range:37%-4 7% HEMOGLOBIN7.8g/dL(Low) Range:12g /dL-16g/dL IMMATURE GRANULOCYTE S %0.4(High) Range:0.1-0.3 IMMATURE GRANULOCYTE S #0.0410*3/uL(High) Range:0.0110*3/uL-0.0210*3/uL LYMPHOCYTE #0.910*3/uL(Low) Rang e:110*3/uL-4.810*3/uL LYMPHOCYTE %9.6(Low) Range:15-45 MEAN CELL HGB20.7pg(Low) Range:2 7pg-32pg MEAN CELL HGB YZRJQOJUTXMOQ70.8g/dL(Low) Range:32g/dL-37g/dL MEAN CELL WFOGKM44bL(Low) Range: 80fL-100fL MONOCYTE #0.710*3/uL(Normal) Ran ge:0.210*3/uL-110*3/uL MONOCYTE %7.3(Normal) Range:4-12 MEAN PLATELET VOLUME TEST NOT PERFORMEDfL Range:9.6fL-12fL NEUTROPHILS #7.510*3/uL(Normal) Range:1.810*3/uL-7.710*3/uL NEUTROPHILS %82.6(High) Range:45 -75 NRBCS #0.0010*3/uL(Normal) Range :010*3/uL-010*3/uL NRBC %0{/100_WBCs} Range:0 /100W BCS PLATELET [id number]*3/uL(Normal) Range:96115*3/uL-98448*3/uL RED BLOOD CELL3.76{M/MM3}(Low) R flaco:4.2{M/MM3}-5.5{M/MM3} RED CELL DISTRIBUTIO N WIDTH24.0%(High) Range:11.5%-14.5% WHITE BLOOD COUNT (WBC)9.010*3/uL(Normal) Range:4.810*3/uL-10.810*3/uL MRSA Surveillance Screen Ordered On:26-Jun-2024 20:25 MRSA SURVEILLANCE SCREENInterpretations: TEST RESULTS ARE FOR EPIDEMIOLOGIC PURPOSES ONLY If a clinically significant infection is suspected, aculture for clinical treatment should be requested andsensitivity studies will be performed if appropriate.Special Result: NCulture negative for Staphylococcus aureus (MRSA) C. auris Surveillance Screen Ordered On:26-Jun-2024 10:48 C. auris Surveillanc e ScreenResultLine:LAWRENCE AURIS RT-PCR SCREEN:REFERENCE INTERVAL: C.AURIS NOT DETECTEDALL INCONCLUSIVE WILL BE SENT TO MICROBIOLOGY FOR CULTURETESTING. THE FINAL REPORT FOR THOSE THAT HAS INCONCLUSIVEFOR LAWRENCE AURIS RT-PCR WILL HAVE A FINAL REPORT FROMMICROBIOLOGY WITH LAWRENCE AURIS SCREENING ANDIDENTIFICATION.THE FINAL RESULTS FOR THE REPORT FOR CULTURE TESTING WHENINCONCLUSIVE: LAWRENCE AURIS SCREEN-LAWRENCE AURIS ISOLATED ORNO LAWRENCE AURIS ISOLATED.COMMENTS:THIS LAWRENCE AURIS PCR TEST IS FOR ENVIRONMENTALSCREENING, SURVEILLANCE, AND COLONIZATION TESTING PURPOSESONLY. IT CANNOT BE USED FOR DIAGNOSTIC PURPOSES OR IN THECLINICAL ASSESSMENT OF LAWRENCE AURIS INFECTION IN PATIENTS.THESE RESULTS SHOULD ONLY BE USED TO IDENTIFY LAWRENCE AURISCOLONIZATION AND TO ASSIST IN INFECTION PREVENTION ANDCONTROL MEASURES BY HEALTHCARE PROVIDERS. NEGATIVE TESTRESULTS ARE NOT AN ABSOLUTE INDICATOR OF LAWRENCE AURISABSENCE, AND REPEAT TESTING MAY BE INDICATED WHEREESPECIALLY LOW NUMBERS OF LAWRENCE AURIS ORGANISMS ARESUSPECTED.TEST PERFORMED BY: [facility] [facility] [address] [place], [place] [id number] Prompts:C. auris SCREEN (PCR) Not Detected COMPREHENSIVE METABOLIC PANEL Ordered On:26-Jun-2024 07:42 ALBUMIN/GLOBULIN RATIO1.7g/dL(Normal) Range:0.9g/dL-1.9g/dL ALBUMIN SERUM4.1g/dL(Normal) Ran ge:3.2g/dL-4.8g/dL ALKALINE KRMODHYNRVE73D/L(Normal) Range:46U/L-116U/L SGPT (ALT)16U/L(Normal) Range:10 U/L-49U/L SGOT (AST)20U/L(Normal) Range:8U /L-33U/L BILIRUBIN TOTAL0.9mg/dL(Normal) Range:0.2mg/dL-1.1mg/dL BLOOD UREA NITROGEN (BUN)14mg/dL(Normal) Range:9mg/dL-23mg/dL CALCIUM TOTAL8.8mg/dL(Normal) Ra nge:8.3mg/dL-10.6mg/dL CHLORIDE RQT040bznh/L(High) Rang e:98mmol/L-107mmol/L CARBON DIOXIDE APX97wdqd/L(Normal) Range:20mmol/L-31mmol/L CREATININE BLD0.75mg/dL(Normal) Range:0.55mg/dL-1.02mg/dL ESTIMATED RQO76pS/min Range:60mL /min-0 Comments:The estimated GFR was calculated using the CKD-EPI 202Requation, which provides a ony-huwn-slvqq estimate of GFR,based on creatinine, age, and sex. The estimated GFR (eGFR)has not been validated for patients < 18 years of age. ANION RXF9dykh/L(Normal) Range:5 mmol/L-16mmol/L GLUCOSE DBEMQA518wk/dL(Normal) R flaco:70mg/dL-139mg/dL POTASSIUM BLD3.4mmol/L(Low) Rang e:3.5mmol/L-5.1mmol/L SODIUM VOM611wcuh/L(Normal) Rang e:136mmol/L-145mmol/L TOTAL PROTEIN BLD6.5g/dL(Normal) Range:5.7g/dL-8.2g/dL CBC W/AUTO DIFFERENTIAL Ordered On:26-Jun-2024 07:43 BASOPHIL #0.010*3/uL(Normal) R flaco:010*3/uL-0.210*3/uL BASOPHIL %0.2(Normal) Range:0-2 EOSINOPHIL #0.110*3/uL(Normal) R flaco:010*3/uL-0.510*3/uL EOSINOPHIL %1.7(Normal) Range:0- 4 BYBSZRETMC34.1%(Low) Range:37%-4 7% HEMOGLOBIN8.5g/dL(Low) Range:12g /dL-16g/dL IMMATURE GRANULOCYTE S %0.9(High) Range:0.1-0.3 IMMATURE GRANULOCYTE S #0.0510*3/uL(High) Range:0.0110*3/uL-0.0210*3/uL LYMPHOCYTE #1.110*3/uL(Normal) R flaco:110*3/uL-4.810*3/uL LYMPHOCYTE %20.4(Normal) Range:1 5-45 MEAN CELL HGB20.4pg(Low) Range:2 7pg-32pg MEAN CELL HGB TYHQERPLTFUAU71.2g/dL(Low) Range:32g/dL-37g/dL MEAN CELL VUNITY48mY(Low) Range: 80fL-100fL MONOCYTE #0.310*3/uL(Normal) Ran ge:0.210*3/uL-110*3/uL MONOCYTE %5.7(Normal) Range:4-12 MEAN PLATELET NKNSEK35.3fL(Normal) Range:9.6fL-12fL NEUTROPHILS #3.910*3/uL(Normal) Range:1.810*3/uL-7.710*3/uL NEUTROPHILS %71.1(Normal) Range: 45-75 NRBCS #0.0010*3/uL(Normal) Range :010*3/uL-010*3/uL NRBC %0{/100_WBCs} Range:0 /100W BCS PLATELET QOZTT02305*3/uL(Normal) Range:56325*3/uL-38310*3/uL RED BLOOD CELL4.17{M/MM3}(Low) R flaco:4.2{M/MM3}-5.5{M/MM3} RED CELL DISTRIBUTIO N WIDTH24.1%(High) Range:11.5%-14.5% WHITE BLOOD COUNT (WBC)5.410*3/uL(Normal) Range:4.810*3/uL-10.810*3/uL PROTIME Ordered On:26-Jun-2024 07:47 INTERNATIONAL NORMAL RATIO1.0(Normal) Range:0.9-1.2 Comments:CURRENT GUIDELINES FOR WARFARIN ANTICOAGULATION: -----MODERATE INTENSITY (INR 2.0-3.0, [facility] INR 2.5) PROPHYLAXIS OF VENOUS THROMBOSIS (HIGH-RISK) TREATMENT OF VENOUS THROMBOSIS OR PULMONARY EMBOLISM PREVENTION OF SYSTEMIC EMBOLISM DUE TO: TISSUE HEART VALVES, ACUTE MYOCARDIAL INFARCT (AMI) VALVULAR HEART DISEASE, ATRIAL FIBRILLATION BILEAFLET MECHANICAL VALVE IN AORTIC POSITIONHIGHER INTENSITY (INR 2.5-3.5, [facility]ARGET INR 3.0) MECHANICAL PROSTHETIC VALVES (a) PATIENTS WITH THROMBOSIS AND ANTIPHOSPHOLIPID SYNDROME AMI (to prevent recurrent AMI)(a) TARGET INR OF 2.5 PLUS ASPIRIN MAY BE USED IN SOME CASES (REFERENCE: 7th ACCP CONFERENCE, CHEST 2004;126;204-233) PROTHROMBIN TIME EDHMWPV13.0s(Normal) Range:9s-12s PTT Ordered On:26-Jun-2024 07:47 PTT24s(Normal) Range:23s-35s Comments:A HEPARIN THERAPEUTIC RANGE OF 65-100 SECONDS CORRESPONDSTO 0.3 - 0.7 ANTI-Xa UNITS/mL OF UNFRACTIONATED HEPARIN. Vital Signs 04-Jul-2024 00:16 Snjylqphxls03.7c Comments:36.7 Pulse69 Comments:69 O2 SAT92% Comments:92 BP Twuvrcbe415cg[Hg] Comments:14 9 BP Vllvdciij91ib[Hg] Comments:79 03-Jul-2024 21:12 Ehetnzneyuo42.3f Comments:98.3 Pulse78 Comments:78 Respiratory Rate18 Comments:18 O2 SAT99% Comments:99 BP Apoauuch452re[Hg] Comments:11 8 BP Qomocubme88jf[Hg] Comments:61 03-Jul-2024 21:11 Respiratory Rate18 Comments:18 03-Jul-2024 19:55 Qmutksnlyfa92.9c Comments:36.9 Pulse70 Comments:70 O2 SAT93% Comments:93 BP Vllaueew694gw[Hg] Comments:11 6 BP Gswwrofdl84ex[Hg] Comments:80 03-Jul-2024 07:55 Qtuozcytojc69.7c Comments:36.7 Pulse64 Comments:64 O2 SAT93% Comments:93 BP Hnbzegwy891zs[Hg] Comments:15 9 BP Jhjmxyqin44fx[Hg] Comments:79 02-Jul-2024 23:01 Yhygowjthdq87.8c Comments:36.8 Pulse64 Comments:64 Respiratory Rate17 Comments:17 O2 SAT93% Comments:93 BP Qtoxgzfv643qo[Hg] Comments:15 6 BP Imknychbx49az[Hg] Comments:83 02-Jul-2024 19:33 Mprfkaycarj13.9c Comments:36.9 Pulse71 Comments:71 Respiratory Rate17 Comments:17 O2 SAT94% Comments:94 BP Otwicxjm371pw[Hg] Comments:15 1 BP Ggsobybqs89gp[Hg] Comments:76 02-Jul-2024 13:30 Dwfvfmsqpuc92.8c Comments:36.8 Pulse77 Comments:77 O2 SAT95% Comments:95 BP Naozzzml595ct[Hg] Comments:14 4 BP Xmsqrxfaj60bc[Hg] Comments:79 02-Jul-2024 07:53 Nurvmyikpay87.8c Comments:36.8 Pulse59 Comments:59 O2 SAT92% Comments:92 BP Ofrpnnjx081bs[Hg] Comments:13 6 BP Esbjkmkyg15tz[Hg] Comments:78 02-Jul-2024 07:53 Oxmkjvbazfa80.8c Comments:36.8 Pulse59 Comments:59 O2 SAT92% Comments:92 BP Onlcidrc719zl[Hg] Comments:13 6 BP Jmyywlvrn72zt[Hg] Comments:78 02-Jul-2024 00:10 Bpdmcunugqa81w Comments:37.0 Pulse77 Comments:77 Respiratory Rate17 Comments:17 O2 SAT93% Comments:93 BP Juyeedxu230fe[Hg] Comments:14 5 BP Xsvrqthez46hf[Hg] Comments:79 01-Jul-2024 19:34 Uxventmrprm71.9c Comments:36.9 Pulse69 Comments:69 Respiratory Rate17 Comments:17 O2 SAT95% Comments:95 BP Usnngvfv022pc[Hg] Comments:12 4 BP Zhatpqsgu06xp[Hg] Comments:80 01-Jul-2024 13:38 Pfewfrnjkgs60.7c Comments:36.7 Pulse75 Comments:75 O2 SAT91% Comments:91 BP Cazynjfd772bp[Hg] Comments:13 8 BP Leixajnhz87rh[Hg] Comments:84 01-Jul-2024 13:38 Vpnwgewzpmw34.7c Comments:36.7 Pulse75 Comments:75 O2 SAT91% Comments:91 BP Vfgookex207xh[Hg] Comments:13 8 BP Omipndpvy46nq[Hg] Comments:84 01-Jul-2024 13:38 Ecrpufyztlx86.7c Comments:36.7 Pulse75 Comments:75 O2 SAT91% Comments:91 BP Xixsijel828nb[Hg] Comments:13 8 BP Kosoxvpxx27kb[Hg] Comments:84 01-Jul-2024 13:37 Fbvwleixviq98.7c Comments:36.7 Pulse74 Comments:74 O2 SAT91% Comments:91 BP Qtwzxxxg233kc[Hg] Comments:14 5 BP Gorktkshn03ce[Hg] Comments:87 01-Jul-2024 13:37 Nmnycrzlfct84.7c Comments:36.7 Pulse74 Comments:74 O2 SAT91% Comments:91 BP Imybaajl654ku[Hg] Comments:14 5 BP Xhncnczwz02ni[Hg] Comments:87 01-Jul-2024 13:37 Deczligclng39.7c Comments:36.7 Pulse74 Comments:74 O2 SAT91% Comments:91 BP Sncwwkkj811ni[Hg] Comments:14 5 BP Wvyejtlbb01su[Hg] Comments:87 01-Jul-2024 07:48 Vzkrvrogycr80.4c Comments:36.4 Pulse69 Comments:69 O2 SAT94% Comments:94 BP Graoqtni551cn[Hg] Comments:15 6 BP Fbtxidloa54dh[Hg] Comments:68 01-Jul-2024 07:48 Cnzabeutyvd78.4c Comments:36.4 Pulse69 Comments:69 O2 SAT94% Comments:94 BP Bgyynemh771zu[Hg] Comments:15 6 BP Nacntyusn20st[Hg] Comments:68 01-Jul-2024 07:48 Jhetmczufsz72.4c Comments:36.4 Pulse69 Comments:69 O2 SAT94% Comments:94 BP Ifftbsvo634gk[Hg] Comments:15 6 BP Iklyuqwbu19ab[Hg] Comments:68 30-Jun-2024 23:23 Xjjxbfjpntu20.6c Comments:36.6 Pulse62 Comments:62 Respiratory Rate17 Comments:17 O2 SAT91% Comments:91 BP Fkwfwqhk781fr[Hg] Comments:14 4 BP Ajdlykluq46xn[Hg] Comments:81 30-Jun-2024 19:48 Nlecubtdhdr94.8c Comments:36.8 Pulse69 Comments:69 Respiratory Rate17 Comments:17 O2 SAT94% Comments:94 BP Dspmivhn124te[Hg] Comments:14 9 BP Yhnjmjrjf41ks[Hg] Comments:82 30-Jun-2024 14:10 Nqmfseivlha05.7c Comments:36.7 Pulse74 Comments:74 O2 SAT93% Comments:93 BP Jzkcbkgy726xo[Hg] Comments:14 9 BP Uoyfeheph22ma[Hg] Comments:88 30-Jun-2024 07:28 Ovlpyfmnlpd24.8c Comments:36.8 Pulse71 Comments:71 O2 SAT93% Comments:93 BP Kqxrphjn483fm[Hg] Comments:13 3 BP Umolaeyus04ed[Hg] Comments:89 30-Jun-2024 07:27 Srvfdxlekjz31.9c Comments:36.9 Pulse71 Comments:71 O2 SAT93% Comments:93 BP Tldgrdda004ox[Hg] Comments:15 2 BP Wcprokqsf52gf[Hg] Comments:81 30-Jun-2024 01:09 Cdemhopqlsm84.9c Comments:36.9 Pulse73 Comments:73 Respiratory Rate20 Comments:20 O2 SAT91% Comments:91 BP Iufzehcd407gg[Hg] Comments:14 6 BP Wyazxmbqn59sk[Hg] Comments:79 29-Jun-2024 20:36 Xgpclvixseg17.7c Comments:36.7 Pulse74 Comments:74 Respiratory Rate18 Comments:18 O2 SAT91% Comments:91 BP Nunaejok027ja[Hg] Comments:15 1 BP Urgatmwyv67eg[Hg] Comments:79 29-Jun-2024 13:43 Kduihdauekj57r Comments:37.0 Pulse88 Comments:88 O2 SAT92% Comments:92 BP Zcaavqmq546ro[Hg] Comments:14 7 BP Ebjzwmble48ru[Hg] Comments:83 29-Jun-2024 10:54 Kilvppszofk43.8c Comments:36.8 Pulse80 Comments:80 O2 SAT91% Comments:91 BP Xuscbfxp027lf[Hg] Comments:15 8 BP Illfxszfk28oo[Hg] Comments:81 29-Jun-2024 07:47 Ideeuvbgyrn54.9c Comments:36.9 Pulse59 Comments:59 O2 SAT96% Comments:96 BP Fjcdaduh862gk[Hg] Comments:12 3 BP Dysqzcueq48fl[Hg] Comments:76 29-Jun-2024 07:47 Pulse61 Comments:61 O2 SAT97% Comments:97 29-Jun-2024 07:20 Vusmvsdvpsg34.9c Comments:36.9 Pulse70 Comments:70 O2 SAT95% Comments:95 BP Bmkivsug745jd[Hg] Comments:13 4 BP Hclkerubs02ck[Hg] Comments:80 29-Jun-2024 05:20 Djqwhsfxhgl83b Comments:37.0 Pulse78 Comments:78 Respiratory Rate18 Comments:18 O2 SAT94% Comments:94 BP Nfsqxlvr530iu[Hg] Comments:14 3 BP Lavgweqrn34hc[Hg] Comments:85 29-Jun-2024 00:22 Wkeyrmolxlo01c Comments:37.0 Pulse85 Comments:85 Respiratory Rate18 Comments:18 O2 SAT85% Comments:85 BP Vljdtmyo594js[Hg] Comments:12 7 BP Ywuakkdjr00bz[Hg] Comments:69 28-Jun-2024 19:45 Rbtisyojayo88.3c Comments:37.3 Pulse79 Comments:79 Respiratory Rate18 Comments:18 O2 SAT91% Comments:91 BP Tuupoorc278lp[Hg] Comments:12 8 BP Gwqmcewkf91tw[Hg] Comments:74 28-Jun-2024 14:22 Inzrczlninh23s Comments:37.0 Pulse84 Comments:84 O2 SAT87% Comments:87 BP Vpgcktyf174jt[Hg] Comments:12 1 BP Hohyglxly77hc[Hg] Comments:76 28-Jun-2024 07:23 Lamvvdnvtxa35.6c Comments:36.6 Pulse77 Comments:77 O2 SAT96% Comments:96 BP Yxhbmutc304jx[Hg] Comments:13 0 BP Qipomppbj61gc[Hg] Comments:76 28-Jun-2024 00:54 Slrrftdtodz86.6c Comments:36.6 Pulse78 Comments:78 Respiratory Rate16 Comments:16 O2 SAT96% Comments:96 BP Oxaiqbni592xv[Hg] Comments:12 9 BP Qrnbayyul86an[Hg] Comments:68 27-Jun-2024 20:27 Wwnergvoiww58.4c Comments:37.4 Pulse80 Comments:80 Respiratory Rate16 Comments:16 O2 SAT94% Comments:94 BP Eqhkhyoc384nh[Hg] Comments:11 3 BP Igipmnrxw83ir[Hg] Comments:71 27-Jun-2024 15:36 O2 SAT96% Comments:96 27-Jun-2024 14:18 Xaektvetwro10.4c Comments:37.4 Pulse87 Comments:87 O2 SAT92% Comments:92 BP Lwrnpvio891gx[Hg] Comments:12 1 BP Edgmdhnnc19cy[Hg] Comments:72 27-Jun-2024 07:56 Mowvxequstw30.6c Comments:36.6 Pulse77 Comments:77 O2 SAT91% Comments:91 BP Qghjzrku117fq[Hg] Comments:11 8 BP Flspxsbyt80ul[Hg] Comments:75 27-Jun-2024 04:41 Pulse88 Comments:88 O2 SAT96% Comments:96 BP Abcaydre519zs[Hg] Comments:10 8 BP Ujbmiebxz93fw[Hg] Comments:27-Jun-2024 00:30 Cfkmfcxneqz87.4c Comments:36.4 Pulse81 Comments:81 Respiratory Rate14 Comments:14 O2 SAT93% Comments:93 BP Iievqjho533ta[Hg] Comments:12 3 BP Amfmoddcf08mv[Hg] Comments:70 26-Jun-2024 20:01 Sapyevujllr52.8c Comments:36.8 Pulse94 Comments:94 Respiratory Rate14 Comments:14 O2 SAT92% Comments:92 BP Lypkeooy835wi[Hg] Comments:11 8 BP Olpytllip09qn[Hg] Comments:74 26-Jun-2024 16:54 Ogxtesrxpmr81.4c Comments:36.4 Pulse95 Comments:95 O2 SAT91% Comments:91 BP Kzbhwaug660iz[Hg] Comments:11 0 BP Ghasultvj83pk[Hg] Comments:26-Jun-2024 12:49 Pulse85 Comments:85 Respiratory Rate16 Comments:16 Axzthexappg06.2f Comments:97.2 O2 SAT95% Comments:95 BP Mddloqju813oa[Hg] Comments:14 1 BP Icpodqtrx19fw[Hg] Comments:72 26-Jun-2024 12:30 Pulse87 Comments:87 Respiratory Rate16 Comments:16 O2 SAT97% Comments:97 BP Ycgwfugk848wr[Hg] Comments:14 7 BP Dmftluvwc53dd[Hg] Comments:81 26-Jun-2024 07:42 Hvrqmdeoqzf05.7f Comments:97.7 Pulse91 Comments:91 Respiratory Rate18 Comments:18 O2 SAT98% Comments:98 BP Vvdcsyyj607ds[Hg] Comments:13 2 BP Kpbxjwlao66nk[Hg] Comments:75 26-Jun-2024 06:48 Height5.0504228[ft_us] Comments: 5 Tdoifp71.545kg Comments:79.545 26-Jun-2024 06:48 BMI27.4kg/m2 Comments:27.4 Encounters Inpatient encounter Encounter Reason:FALL HIP PAIN FELL OUT OF BED THIS AM Encounter Diagnosis:Iron deficiency anemia, unspecified,481,Acute posthemorrhagic anemia,Iron deficiency anemia, unspecified,Hypokalemia,Fall from bed, initial encounter,Refractory anemia, unspecified,Other trade areas as the place of occurrence of the external cause,Unspecified fracture of head of right femur, initial encounter for closed fracture 26-Jun-2024 08:[id number] 11:58 [facility] Discharge Disposition:Discharged to home or self care (routine discharge) 04-Jul-2024 [place] [id number] [place] [address] REPORT NAME: CASE MANAGEMENT REPORTPATIENT'S NAME: HERMELINDA JOHNSON UNIT NO: [id number]: 64 SEX/AGE: F /64 ACCOUNT NO: [id number] PHYS: Denise Reeves MD PT TYPE: DIS INADMISSION DATE: 06/26/24 LOCATION: [facility]siSURGSDISCHARGE DATE:07/04/24 ----- --------HCM SUPPORT SERVICES ----- ---[facility] Support Services User Johnson:Comments:HOME Date Entered: 06/27/2024Service Type: *Case ManagementCase Worker: Mariah Lyon 3RD FLWorklist Date: 07/04/2024Payer: [employer] POS MCComments:--- 07/01/2024 04:07 PM by Megha Ashraf ---SW NOTE:P: fit to fly letter requestA: pt has been medically cleared and is ready for d/c. As per RNglenisI: created letter, signed it. Original given to pt and husbandP: SW to remain available as needed--- 07/01/2024 04:04 PM by Gerardo Angeles ---Records and images on thechart for Discharge back to [facility].--- 06/30/2024 02:15 PM by Gerardo Angeles ---P: Discussed in MDRA: Clinical problems/barriers to discharge:Pt continues to work with the Patient withthe goal of returning Home.[facility] CM will continue to follow for possible Dc needsP: CM review completedPATIENT NAME: HERMELINDA JOHNSON 06/27/2024 01:04 PM by Dinesh Godoy ---PER PATIENT REQUEST, CROZER OPERATOR WROTE A HOSPITAL VERIFICATION LETTER ON BEHALF OF THEPATIENT SO SHE CAN GET A REFUND SHE WAS NOT ABLE TO COMPLETE THE Apptentive TOUR.--- 06/27/2024 12:29 PM by Gerardo Angeles ---P: Called to room by PatientA: Clinical problems/barriers to discharge:[facility] [place].I: Will monitor for DC needsP: CM review completed. ----- -----HCM DISCHARGE PLANNING ----- ---HCM Discharge Planning Comments: ----- ----HCM DISCHARGE PLANNING EVALUATION ----- -----Case Workers: Thanh Michaels Status: Spouse-partnerSetting: Home-residenceADL Limits: None or n/aDME: NoneHCM Discharge Planning User Johnson:Community Services Prior to Admission: None or NACurrent Mental Status/Cognition: Alert and OrientedInformation obtained from: Medical RecordsInterdisciplinary TeamDischarge Barriers, select all that apply: Medical Condition-SignificantReadmission (unplanned) in the last 30 days: NoPatient goals and preferences after discharge: HOMEPATIENT NAME: HERMELINDA JOHNSON Berenice on information gathered, is it likely that the patient's care needs canbe met in the environment from which he/she entered the hospital?: YesProposed Discharge Plan, select one: HomeHome Services needed: None or Jenny a caregiver is needed, is there a caregiver available, willing and capableto provide care?: Not NeededCommunity services needed: NoneNew DME required at discharge: None or Jenny new DME is required, is patient able to obtain DME?: Not ApplicableHome Modifications required: None or Jenny home modifications are required, is patient able to obtain them?: NotApplicablePatient concerns about obtaining medications on day of discharge?: NoneTransportation needs at discharge: NONEDate / Time: 2024 12:26 PMEvaluated by: Airam Michaels ===== =======Updated by: Aminata Franklin (DCMKM) - 07/04/2024 2:18 PM ==PAT IENT NAME: HERMELINDA JOHNSON Plan of Treatment Future Tests Future scheduled test information is unavailable Pending Tests Pending diagnostic test information is unavailable Future Visits Future appointment information is unavailable Referrals to Other Providers Referral information is unavailable Future Procedures Future procedure information is unavailable Future Medications Future medication information is unavailable Patient Instructions Instruction Admit Date Anticoagulants 2024 8:41am Hip Surg Daily Tasks 2024 8:41am Hip Safety Bed Steps 2024 8:41am Hip Fx Surg Hosp Recovery 2024 8:41am Hip Fx Surg Home Recovery 2024 8:41am Hip Fx Surg Dc 2024 8:41am Bleeding Precautions When on Anticoagulant Therapy, Pediatric 2024 8:41am Iron Deficiency Anemia, Adult June 052024 8:41am Hip Fracture Treated With ORIF, Care Aft er 2024 8:41am Hip Fracture 2024 8:41am Goals Acute Goals Standards of Care will be me t Standards of Care will be me t See Health Plan of Care See Health Plan of Care See Health Plan of Care See Health Plan of Care See Health Plan of Care See Health Plan of Care Assessments Diagnosis Onset Date Resolution Status Admit Date Fracture of femoral head Active 2024 8:41am Anemia Active 2024 8:41am Hypokalemia Active June 8:41am
--- OUTSIDE RECORDS SUMMARY | 2024-09-05 14:06 | XMS_ITS | Clinical Summary ---
Author Organization [facility] Address [address] [place] [address] Care Team Providers Care Needleworker Name Role Phone Lashonda Austin MD Primary Care Provider [phone] Source Comments [facility],non-owned Affiliates and Associated Physician Practices is amultiple site organization consisting of ambulatory clinics and hospital sitesin [place], [place] and [place]. This disclosure is being madepursuant to the Care Everywhere program and may not contain all information available regarding this patient. Last updated 18.[facility] Allergies No known active allergies Medications * Be aware that medications may not be up to date on this document. Alwaysverify current medications with the patient. No known medications Active Problems No known active problems Social History Tobacco Use Types Packs/Day Years Used Date Smoking Tobacco: Never Comments Unknown Sex and Gender Information Value Date Recorded Sex Assigned at Not on file Legal Sex Female 11:21 AM [employer] SAL[employer] REPRESENTATIVE Gender Identity Not on file Sexual Orientation Not on file Last Filed Vital Signs Vital Sign Reading Time Taken Comments Blood Pressure 118/78 05/11/2016 1:58 PM [employer] REPRESENTATIVE Pulse 77 05/11/2016 1:58 PM [employer] RE[employer]ENTATIVE Temperature 36.7 C (98.1 F) 05/11/2016 1:58 PM [employer] REPRESENTATIVE Respiratory Rate - - Oxygen Saturation 97% 05/11/2016 1:58 PM [employer] REPRESENTATIVE Inhaled Oxygen Concentration - - Weight 81.6 kg (180 lb) 05/11/2016 1:58 PM [employer] REPRESENTATIVE Height 170.2 cm (5' 7 ) 05/11/2016 1:58 PM [employer] REPRESENTATIVE Body Mass Index 28.19 05/11/2016 1:58 PM [employer] REPRESENTATIVE Plan of Treatment Health Maintenance Due Date Last Done Comments COLOGUARD (AGES 45-75) - COL ON CA SCREENING 1962 COLON MONITORING 1962 COLONOSCOPY - COLON CA SCREENING 1962 CT COLONOGRAPHY - COLON CA SCREENING 1962 Colorectal Cancer Screening 1962 FIT - COLON CA SCREENING 1962 FLEX SIG - COLON CA SCREENING 1962 LIPID TESTING 1962 MAMMOGRAM 1962 PAP SMEAR 1962 HIV SCREENING 1977 HEPATITIS C SCREENING 06/21/1980 DTAP/TDAP/TD VACCINES (1 - Tdap) 1981 PNEUMOCOCCAL VACCINE 50+ (1 of 1 - PCV) 2012 ZOSTER VACCINE (1 of 2) 2012 COVID-19 VACCINE (1 - 2023-2 5 season) 2024 DEPRESSION SCREENING 05/04/2024 INFLUENZA VACCINE (Season Ended) 2025 Respiratory Syncytial Virus (RSV) Vaccine Pt: or over 60 yrs (1 - 1-dose 75+ series) 2037 HEPATITIS B VACCINE Aged Out No longe r eligible based on patient's age to complete this topic HIB VACCINE Aged Out No longer eligi ble based on patient's age to complete this topic HPV VACCINE Aged Out No longer eligi ble based on patient's age to complete this topic MENINGOCOCCAL (Group B) VACC INE SHARED DECISION-MAKING Aged Out No longer eligibl e based on patient's age to complete this topic MENINGOCOCCAL GROUPS A/C/Y/W VACCINE Aged Out No longer eligible b ased on patient's age to complete this topic Insurance AETNA AETNA AETNA SELF PAY NO INSURANCE Member Subscriber Plan / Payer (Ef fective for All Dates) Name:Hermelinda Johnson Member ID:Not on file Relation to Subscriber:Not on file Name:HERMELINDA JOHNSON Subscriber ID:Not on file Address: [address] [place] [address] Payer ID:Not on file Group ID:Not on file Type:Self Pay Address: [place], [place] AETNA SELF PAY NO INSURANCE Member Subscriber Plan / Payer (Ef fective for All Dates) Name:Hermelinda Johnson Member ID:Not on file Relation to Subscriber:Not on file Name:JOHSNONLEYLAHERMELINDA Subscriber ID:Not on file Address: [address] [place] [id number] Payer ID:Not on file Group ID:Not on file Type:Self Pay Address: [place], [place] Care Teams Needleworker Relationship Specialty Start Date End Date Lashonda Austin MD [address] [place] [address] PCP - General 02/17/19
== END 2024-09-05 13:28 | disposition home or self-care (01) ==
LOC: ANHIMG 13:28
PROVIDERS: PCP Family Medicine; Visit Provider Family Medicine
DX: M85.89 Other specified disorders of bone density and structure, multiple sites (principal); S72.009A Fracture of unspecified part of neck of unspecified femur, initial encounter for closed fracture; X58.XXXA Exposure to other specified factors, initial encounter
CPT/HCPCS: 77080

== ENCOUNTER 2024-09-05 13:57 | Outpatient (CLI) | payer OTHER, SELFPAY ==
--- OUTSIDE RECORDS SUMMARY | 2024-09-05 14:35 | XMS_ITS | Encounter Summary ---
Author Organization [facility] Address [address] [place], [place] [address] [address] Care Team Providers Care Timber Incisor Operator Name Role Phone Lashonda Austin MD Primary Care Provider [phone] Encounter Details Date Type Department Care Team (Late st Contact Info) Description 06/12/2020 Lab Requisition [facility] DermPath Lab [address] [facility] [place] [id number] Nino Fang MD [address] [place] [address] [id number] Social History Tobacco Use Types Packs/Day Years Used Date Smoking Tobacco: Never Comments Unknown Sex and Gender Information Value Date Recorded Sex Assigned at Not on file Legal Sex Female 11:21 AM CERTIFIED HISTOLOGIC TECHNICIAN Gender Identity Not on file Sexual Orientation Not on file documented as of this encounter Plan of Treatment Not on file documented as of this encounter Procedures Procedure Name Priority Date/Time Associated Diagnosis Comments DERMATOPATHOLOGY Routine 06/11/2020 12:0 0 AM CERTIFIED HISTOLOGIC TECHNICIAN documented in this encounter Results * DERMATOPATHOLOGY (06/11/2020 12:00 AM CERTIFIED HISTOLOGIC TECHNICIAN) Case Report Dermatopathology Report Case: [id number] Authorizing Provider: Nino Fang MD Collected: 06/11/2020 12:00 AM Ordering Location: [facility] DermPath Lab Received: 06/12/2020 07:23 AM Pathologist: Tina Goldsmith MD Specimens: A) - Skin, right chin B) - Skin, right post auric 12:56 PM CERTIFIED HISTOLOGIC TECHNICIAN DERMATOPATHOLOGY LABORATORY Final Diagnosis Specimen A. SKIN, right chin: INTRADERMAL MELANOCYTIC NEVUS (D22.39) Specimen B. SKIN, right post auric: INTRADERMAL MELANOCYTIC NEVUS (D22.4) 12:56 PM [facility] DERMATOPATHOLOGY LABORATORY Clinical History A-B: R/O irritated nevus. 12:56 PM [facility] DERMATOPATHOLOGY LABORATORY Gross Description Specimen A: Received is one formalin filled container labeled with the patients name and designated right chin. The specimen consists of a shave removal measuring [id number]. Jar 0. Specimen B: Received is one formalin filled container labeled with the patients name and designated right post auric. The specimen consists of a shave removal measuring 3p4h6wb. Jar 0. 12:56 PM [facility] DERMATOPATHOLOGY LABORATORY Microscopic Description Specimen A. SKIN, right chin: There are nests of cytologically bland melanocytes within the dermis that mature with depth. Specimen B. SKIN, right post auric: There are nests of cytologically bland melanocytes within the dermis that mature with depth. 12:56 PM [facility] DERMATOPATHOLOGY LABORATORY Disclaimer An external and internal positive and negative controls are appropriate for the histochemical, immunohistochemical and immunofluorescence stain(s) in this case (if any), except where stated explicitly. The performance characteristics of the stain(s) cited in this report were developed and its performance characteristic determined by the Dermatopathology Laboratory at [facility], directed by Dr. Tim Fabian. These tests need not be, and therefore are not, approved by the [place] Food and Drug Administration. The tests are used for clinical purposes. Billing Codes Specimen Charges Stain Charges 82345 97050 1 1 12:56 PM [facility] DERMATOPATHOLOGY LABORATORY Embedded Images 12:56 PM [facility] DERMATOPATHOLOGY LABORATORY Pathology/Cytology TISSUE SPECIMEN FROM SKIN / Unknown 06/11/2020 06/12/2020 7:23 AM CERTIFIED HISTOLOGIC TECHNICIAN Miscellaneous samples (specimen) TISSUE SPECIMEN FROM SKIN / Unknown 06/11/2020 06/12/2020 7:23 AM CERTIFIED HISTOLOGIC TECHNICIAN us Nino Fang MD LAB - PATHOLOGY/CYTOLOGY ORDERAB LES Final Result DERMATOPATHOLOGY LABORATORY [facility] - Department of Dermatology [facility] Medicine [address] [place] [address], [address] [place] [address], [facility] [phone] documented in this encounter Visit Diagnoses Not on filedocumented in this encounter Care Teams Timber Incisor Operator Relationship Specialty Start Date End Date Lashonda Austin MD [address] [place] [address] PCP - General 02/17/19 documented as of this encounter
--- OUTSIDE RECORDS SUMMARY | 2024-09-05 14:35 | XMS_ITS | Clinical Summary ---
Author Organization [facility] Care Team Providers Care Apparel Stock Checker Name Role Phone Unavailable Primary Care Provider Unavailabl e Social History Tobacco Use Types Packs/Day Years Used Date Smoking Tobacco: Never Assessed Comments Unknown Sex and Gender Information Value Date Recorded Sex Assigned at Not on file Legal Sex Female 8:14 AM PERMIT AGENT Gender Identity Not on file Sexual Orientation [...]
--- OUTSIDE RECORDS SUMMARY | 2024-09-05 14:36 | XMS_ITS | Clinical Summary ---
Author Organization [facility] Mikel surekha Dillard Address [address] [place] [address] Care Team Providers Care Block Inspector Name Role Phone Stanley Alvares MD Primary Care Provider [phone] Allergies No known active allergies Medications ferrous [...] Data STL ABSTRACTION Provider, Abstract 07/25/2024 Telephone [facility] - [address] [place] [address] Dom Shannon MD labs for [...] Data STL ABSTRACTION Provider, Abstract 07/01/2024 Telephone [facility] [address] [place] [address] Dom Shannon MD inpatient 06/22/2024 External Device Data STL ABSTRACTION Provider, Abstract 06/17/2024 Telephone [facility] [address] Dom Shannon MD Iron Supplements 06/17/2024 Abstract [facility] [address] [place] [address] Dom Shannon MD 06/14/2024 2:00 PM IRRIGATION SERVICE TECHNICIAN Office Visit [facility] [address] [place] [address] Dom Shannon MD Chronic anemia (Primary Dx) 06/13/2024 Orders Only [facility] [address] Dom Shannon MD Chronic anemia (Primary Dx) 06/13/2024 Telephone [facility] [address] [place] [id number] Dom Shannon MD Lab Results from Last [...] Comments Blood Pressure 111/65 06/14/2024 1:50 PM IRRIGATION SERVICE TECHNICIAN Pulse 76 06/14/2024 1:50 PM IRRIGATION SERVICE TECHNICIAN Temperature 36.6 C (97.8 F) 06/14/2024 1:50 PM IRRIGATION SERVICE TECHNICIAN Respiratory Rate 16 06/14/2024 1:50 PM IRRIGATION SERVICE TECHNICIAN Oxygen Saturation 95% 06/14/2024 1:50 PM IRRIGATION SERVICE TECHNICIAN Inhaled Oxygen Concentration - - Weight 84.4 kg (186 lb) 06/14/2024 1:50 PM IRRIGATION SERVICE TECHNICIAN Height 170.2 cm (5' 7 ) 01/21/2022 [...] Insurance [employer] CHOICE POS II Care Teams Block Inspector Relationship Specialty Start Date End Date Stanley Alvares MD [address] [facility] [address] [place] [address] PCP - General Family Practice 06/14/24
--- OUTSIDE RECORDS SUMMARY | 2024-09-05 14:36 | XMS_ITS | Clinical Summary ---
Author Organization [facility] Address [address] [facility] [place] [address] Care Team Providers Care Dairy Feed Sales Consultant Name Role Phone Lashonda Austin MD Primary Care Provider [phone] Source Comments [facility],non-owned Affiliates and Associated Physician Practices is amultiple site organization consisting of ambulatory clinics and hospital sitesin [place], [place], [place] and [place]. This disclosure is being madepursuant to the Care Everywhere program and may not contain all information available regarding this patient. Last updated [email or web address] Allergies No known active allergies Medications * [...] on file Legal Sex Female 11:21 AM LOADER MACHINE Gender Identity Not on file Sexual Orientation Not on file Last Filed Vital Signs Vital Sign Reading Time Taken Comments Blood Pressure 118/78 05/11/2016 1:58 PM LOADER MACHINE Pulse 77 05/11/2016 1:58 PM LOADER MACHINE Temperature 36.7 C (98.1 F) 05/11/2016 1:58 PM LOADER MACHINE Respiratory Rate - - Oxygen Saturation 97% 05/11/2016 1:58 PM LOADER MACHINE Inhaled Oxygen Concentration - - Weight 81.6 kg (180 lb) 05/11/2016 1:58 PM LOADER MACHINE Height 170.2 cm (5' 7 ) 05/11/2016 1:58 PM LOADER MACHINE Body Mass Index 28.19 05/11/2016 1:58 PM LOADER MACHINE Plan of Treatment Health Maintenance Due Date [...] Name:HERMELINDA JOHNSON Subscriber ID:Not on file Address: [address] [place] [address] Payer ID:Not on file Group ID:Not on file Type:Self Pay Address: [place], [place] [employer] SELF PAY NO INSURANCE Member Subscriber Plan / Payer (Ef fective for All Dates) Name:Hermelinda Johnson Member ID:Not on file Relation to Subscriber:Not on file Name:JOHNSONLEYLAHERMELINDA Subscriber ID:Not on file Address: [address] [place] [id number] Payer ID:Not on file Group ID:Not on file Type:Self Pay Address: [place], [place] Care Teams Dairy Feed Sales Consultant Relationship Specialty Start Date End Date Lashonda Austin MD [address] [place] [address] PCP - General 02/17/19
[2024-09-05 14:41] LABS: Basophils Percent Auto 0.5 % (0.2-1.2); Eosinophils Absolute Auto 0.3 K/mm3 (0-0.3); Eosinophils Percent Auto 4.7 % (0-4.4); Hematocrit 38.6 % (37.0-47.0); Hemoglobin 11.3 g/dL (12.0-15.0); Immature Granulocyte Absolute 0.01 K/mm3 (0.00-0.031); Immature Granulocyte Percent A 0.2 % (0-0.5); Immature Platelet Fraction Pct 3.9 % (0.9-11.2); Lymphocytes Absolute Auto 1.64 K/mm3 (0.9-3.2); Lymphocytes Percent Auto 29.4 % (18.3-44.2); Mean Corpuscular HGB Conc 29.3 g/dl (32-36); Mean Corpuscular Hemoglobin 25.2 pg (26-34); Mean Platelet Volume 11.1 fl (7.4-10.4); Monocytes Absolute Auto 0.4 K/mm3 (0.1-0.6); Monocytes Percent Auto 6.6 % (2.6-8.5); Neutrophils Absolute Auto 3.3 K/mm3 (1.3-6.7); Neutrophils Percent Auto 58.6 % (45.5-73.1); Platelet Count Result 263 k/mm3 (150-375); Red Blood Count 4.49 M/mm3 (4.2-5.4); Red Cell Distribution Width 20.6 % (11.5-14.5); White Blood Count 5.6 K/mm3 (4.5-10.0)
[2024-09-05 14:52] LABS: Iron 51 ug/dL (37-170)
[2024-09-05 15:01] LABS: Percent Iron Saturation 13 % (20-50)
[2024-09-05 15:15] LABS: Anisocytosis 1+; Hypochromasia 1+; Platelet Estimate Adequate (Adequate)
[2024-09-05 15:16] LABS: Schistocytes None Seen
[2024-09-09 12:44] LABS: Vitamin D 1,25 (OH)2 Total 29 pg/mL (18-72); Vitamin D2 1,25 (OH)2 <8 pg/mL; Vitamin D3 1,25 (OH)2 29 pg/mL
== END 2024-09-05 13:58 | disposition home or self-care (01) ==
PROVIDERS: PCP Family Medicine; Visit Provider Physician Assistant
DX: E53.8 Deficiency of other specified B group vitamins (principal); E55.9 Vitamin D deficiency, unspecified; D64.9 Anemia, unspecified
CPT/HCPCS: 36415; 82607; 82652; 83540; 83550; 85025; 85055